=== PATIENT | female | born 1940 | race Caucasian/White ===

== ENCOUNTER 2016-09-23 17:43 | Emergency (ER) | payer MEDICARE, BC ==
[2016-09-23 18:09] VITALS: BP 161/88
--- NOTE | 2016-09-23 19:43 | EDM.PDOC ---
ED HPI GENERAL MEDICAL PROBLEM - General Chief Complaint: Lower Extremity Injury/Pain Stated Complaint: LT LEG SWOLLEN Time Seen by Provider: 09/23/16 18:25 Source of Information: Reports: Patient History Limitations: Reports: No Limitations - History of Present Illness INITIAL COMMENTS - FREE TEXT/NARRATIVE: The patient is a 76-year-old female who presents to the ED complaining of left lower leg swelling and pain. Patient states swelling to the left leg started 3 days ago and has slowly increased since. She has some mild pain located to the posterior aspect of her left calf. 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 She denies any recent trauma. States she is on her feet multiple hours during the day. States the swelling does go down somewhat with lying flat at night. She is concerned she has a blood clot. She has a history of blood clot in the right legs 60 years ago secondary to trauma. Pain currently is a 7/10. She denies any shortness of breath, chest pain, fever/chills, increased redness , hemoptysis, recent hospitalizations, recent surgery, exogenous estrogen use, or history of cancer. Patient does have a history of hypertension and is on multiple medications. History of hypothyroidism, GERD, and anxiety. Current medications include: levothyroxin, pantoprazole, losartan, metoprolol, amlodipine, lorazepam. Patient states approximately 3 weeks ago she just started amlodipine low dose. She is wearing compression stockings on regular basis. 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 - Related Data Allergies Allergy/AdvReac Type Severity Reaction Status Date / Time ciprofloxacin Allergy Hives Verified 04/26/16 07:29 ibuprofen Allergy Hives Verified 04/26/16 07:29 penicillin G Allergy Hives Verified 04/26/16 07:29 Home Meds: Home Meds LORazepam 0.5 - 1 mg PO QID PRN 04/25/14 [History] Levothyroxine [Synthroid] 75 mcg PO ASDIRECTED 04/25/14 [History] Metoprolol Succinate [Toprol XL] 75 mg PO DAILY 04/25/14 [History] Pantoprazole [ProTONIX] 40 mg PO DAILY 04/25/14 [History] Pravastatin [Pravachol] 10 mg PO DAILY 04/25/14 [History] Aspirin [Franck Chewable Aspirin] 81 mg PO DAILY 05/23/14 [History] Carboxymethylcellulos/Glycerin [Refresh Optive Gel Eye Drops] 1 drop EYEBOTH BID 04/26/16 [History] Dicyclomine [Bentyl] 20 mg PO QID PRN 04/26/16 [History] Levothyroxine [Synthroid] 50 mcg PO ASDIRECTED 04/26/16 [History] Losartan Potassium 50 mg PO DAILY 04/26/16 [History] Triamcinolone Acetonide [Nasacort] 1 spray NASBOTH DAILY PRN 04/26/16 [History] Past Medical History - Past Health History Medical/Surgical History: Denies Medical/Surgical History HEENT History: Reports: Cataract Other HEENT History: wears eyeglasses Cardiovascular History: Reports: High Cholesterol, Hypertension, Other (See Below) Other Cardiovascular History: cardiac arrest -shocked 2 times and sent to [place] almost 3 yrs ago Gastrointestinal History: Reports: Colon Polyp Genitourinary History: Reports: UTI, Recurrent 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: Musculoskeletal History: Reports: Back Pain, Chronic Psychiatric History: Reports: Anxiety Endocrine/Metabolic History: Reports: Hypothyroidism Oncologic (Cancer) History: Reports: Squamous Cell Carcinoma - Infectious Disease History Infectious Disease History: Reports: Measles - Past Surgical History HEENT Surgical History: Reports: Cataract Surgery, Tonsillectomy Social & Family History - Tobacco Use Smoking Status *Q: Never Smoker Years of Tobacco use: 20 Used Tobacco, but Quit: Yes Month Tobacco Last Used: unknown Second Hand Smoke Exposure: No - Caffeine Use Caffeine Use: Reports: Coffee, Soda, Tea - Alcohol Use Days Per Week of Alcohol Use: 0 Number of Drinks Per Day: 1 Total Drinks Per Week: 0 - Recreational Drug Use Recreational Drug Use: No - Living Situation & Occupation Living situation: Reports: , with Spouse Occupation: Employed Review of Systems - Review of Systems Review Of Systems: See Below Constitutional: Reports: No Symptoms Respiratory: Denies: Shortness of Breath, Cough, Sputum, Hemoptysis Cardiovascular: Denies: Chest Pain, Lightheadedness, Palpitations GI/Abdominal: Denies: Abdominal Pain, Bloody Stool, Diarrhea, Hematemesis, Nausea, Vomiting Genitourinary: Denies: Dysuria, Hematuria Musculoskeletal: Reports: Leg Pain Neurological: Denies: Dizziness, Numbness, Syncope, Tingling, Difficulty Walking Trauma Exam - Physical Exam Exam: See Below Exam Limited By: No Limitations General Appearance: Reports: Alert, WD/WN, No Apparent Distress Ears: Reports: Hearing Grossly Normal Nose: Reports: Normal Inspection Throat/Mouth: Reports: Normal Inspection, Normal Voice, No Airway Compromise Neck: Reports: Normal Inspection Respiratory Exam: Reports: No Respiratory Distress, Lungs Clear, Normal Breath Sounds, No Accessory Muscle Use, Chest Non-Tender Cardiovascular: Reports: Normal Peripheral Pulses, Regular Rate, Rhythm, No Murmur GI/Abdominal: Reports: Normal Bowel Sounds Extremities: No Evidence of Injury, Tenderness (to the left posterior calf. ), Other (Swelling noted to the left leg up to the mid thigh in comparison to the right. Pedal pulses intact bilaterally. Peripheral edema 2+ bilaterally. ) Neurologic: Reports: No Motor/Sensory Deficits, Alert, Normal Mood/Affect, Oriented x 3 Skin: Reports: Normal Color, Warm/Dry Course - Vital Signs Last Recorded V/S: Last Vital Signs Temp 98.9 F 09/23/16 18:08 Pulse 66 09/23/16 18:08 Resp 20 09/23/16 18:08 BP 161/88 H 09/23/16 18:08 Pulse Ox 95 09/23/16 18:08 - Orders/Labs/Meds Labs: Laboratory Tests 09/23/16 09/23/16 09/23/16 Range/Units 18:57 18:57 18:57 WBC 4.59 (3.98-10.04) K/mm3 RBC 4.16 (3.98-5.22) M/mm3 Hgb 12.7 (11.2-15.7) gm/L Hct 37.2 (34.1-44.9) % MCV 89.4 (79.4-94.8) fl MCH 30.5 (25.6-32.2) pg MCHC 34.1 (32.2-35.5) g/dl RDW Std Deviation 38.0 (36.4-46.3) fL Plt Count 169 L (182-369) K/mm3 MPV 9.2 L (9.4-12.3) fl Neut % (Auto) 42.1 (34.0-71.1) % Lymph % (Auto) 40.7 (19.3-51.7) % [place] % (Auto) 12.9 H (4.7-12.5) % Eos % (Auto) 3.9 (0.7-5.8) Baso % (Auto) 0.4 (0.1-1.2) % Neut # (Auto) 1.93 (1.56-6.13) K/mm3 Lymph # (Auto) 1.87 (1.18-3.74) K/mm3 [place] # (Auto) 0.59 H (0.24-0.36) K/mm3 Eos # (Auto) 0.18 (0.04-0.36) K/mm3 Baso # (Auto) 0.02 (0.01-0.08) K/mm3 PT 10.3 (8.0-13.0) SECONDS INR 0.95 APTT 29 (22-36) SECONDS Sodium 146 H (136-145) mEq/L Potassium 3.6 (3.5-5.1) mEq/L Chloride 110 H (98-107) mEq/L Carbon Dioxide 27 (21-32) mEq/L Anion Gap 12.6 (5-15) BUN 15 (7-18) mg/dL Creatinine 0.6 (0.55-1.02) mg/dL Est Cr Clr Drug Dosing 80.47 mL/min Estimated GFR (MDRD) > 60 (>60) mL/min BUN/Creatinine Ratio 25.0 H (14-18) Glucose 110 (83-115) mg/dL Calcium 9.1 (8.5-10.1) mg/dL Total Bilirubin 0.3 (0.2-1.0) mg/dL AST 14 L (15-37) U/L ALT 15 (14-59) U/L Alkaline Phosphatase 82 (46-116) U/L C-Reactive Protein < 0.2 (<1.0) mg/dL Total Protein 6.8 (6.4-8.2) g/dl Albumin 3.5 (3.4-5.0) g/dl Globulin 3.3 gm/dL Albumin/Globulin Ratio 1.1 (1-2) - Re-Assessments/Exams Free Text/Narrative Re-Assessment/Exam: Peripheral IV ordered. Initial studies include CBC, chem 14, CRP, Pt/INR, and PTT. Venous duplex of the left leg ordered. labs reviewed essentially normal. Ultrasound of the left lower leg impression no evidence of deep venous thrombus seen within the left lower extremity. Right common femoral vein is also patent. Shared results of labs and study with patient and family. We will discharge her home with instructions. Departure - Departure Time of Disposition: 20:48 Disposition: Home, Self-Care 01 Condition: good Clinical Impression: Pain and swelling of left lower leg - Discharge Information Referrals: Jenny Waddell, LOCAL ANNOUNCER [Primary Care Provider] - Forms: ED Department Discharge Additional Instructions: ultrasound of the left leg did not reveal any deep venous thrombus. Unclear etiology of recent swelling. Suspect the swelling you have chronically has been exacerbated by adding norvasc to your medication regimen. Thus will have you continue wearing compression stocking while on your feet for excessive hours. When able would like you to elevate your legs above your heart one hour in the a.m. and afternoon to reduce swelling. Decrease salt intake. See your PCP this coming week for reevaluation and modification of medication regimen if deemed necessary. Return to the E.D. for any new or worsening symptoms.
--- NOTE | 2016-09-23 19:56 | US ---
Left lower extremity deep venous ultrasound: Duplex and color flow imaging was obtained of the left common femoral, superficial femoral, proximal greater saphenous, popliteal, posterior tibial and peroneal veins. Right common femoral vein was also evaluated. Comparison: Previous left lower extremity deep venous ultrasound dated 02/24/11. Findings: Normal phasic flow, augmentation and compression is seen. Impression: 1. No evidence of deep venous thrombosis is seen within the left lower extremity. Right common femoral vein is also patent. Diagnostic code #1
== END 2016-09-23 21:00 | disposition home or self-care (01) ==
LOC: JD.ED 17:43
DX: M79.89 Other specified soft tissue disorders (principal); M79.662 Pain in left lower leg; I10 Essential (primary) hypertension; E03.9 Hypothyroidism, unspecified; K21.9 Gastro-esophageal reflux disease without esophagitis; F41.9 Anxiety disorder, unspecified; E78.00 Pure hypercholesterolemia, unspecified; Z79.899 Other long term (current) drug therapy; Z88.8 Allergy status to other drugs, medicaments and biological substances; Z88.0 Allergy status to penicillin; Z79.82 Long term (current) use of aspirin; Z98.890 Other specified postprocedural states
CPT/HCPCS: 36415; 80053; 85025; 85610; 85730; 86140; 93971-26-LT; 93971-LT; 99282; 99284-25

== ENCOUNTER 2016-10-18 11:14 | Observation (INO) | payer MEDICARE, BC ==
[2016-10-18] MEDS ORDERED: traMADol 50 MG Tab PO ONE (12:17)
--- NOTE | 2016-10-18 12:32 | CT ---
Head CT Technique: Multiple axial sections through the brain were obtained. Intravenous contrast was not utilized. Comparison: No previous intracranial imaging. Findings: Ventricles along with basal cisterns and sulci over the convexities are mildly prominent. No abnormal parenchymal densities are seen. No evidence of intracranial hemorrhage. No midline shift or mass effect is seen. Bone window settings were reviewed which shows no discrete calvarial abnormality. Visualized sinuses are clear. Impression: 1. Mild senescent change. Nothing acute is identified on noncontrast head CT study. Diagnostic code #1
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
--- NOTE | 2016-10-18 12:35 | CT ---
CT cervical spine Technique: Multiple axial sections were obtained from above C1 inferiorly to the top of T2. Comparison: No previous cervical spine imaging is available. Findings: Severe disc space narrowing is noted at C5-6 and C6-7 as well as C7-T1. Mild spondylolisthesis at C4-5 is seen compatible with degenerative apophyseal change. Degenerative apophyseal change is present throughout the cervical spine. Posterior osteophytes are noted C5-6 and C6-7. Very minimal spondylolisthesis seen at C7-T1 also compatible with degenerative apophyseal change. Degenerative change is seen between the dens and anterior arch of C1. Vertebral bodies and posterior arches are intact. No fracture is identified. Mild left-sided neural foraminal stenosis noted at C6-7. Moderate left-sided neural foraminal stenosis noted at C5-6. Mild to moderate right-sided neural foraminal stenosis noted at C4-5. Mild bilateral neural foraminal stenosis noted at C3-4. Very minimal spondylolisthesis also seen at C3-4 due to degenerative apophyseal change. Diffuse degenerative spurring is seen within the uncovertebral joints most prominent at C6-7. Impression: 1. Diffuse degenerative change as noted above. No acute fracture is seen. Diagnostic code #2
--- NOTE | 2016-10-18 12:37 | CT ---
CT facial bones Technique: Multiple axial sections through the facial bones were obtained. Reconstructed coronal and sagittal images were reviewed. Findings: Calcification which is felt to be incidental and dystrophic is seen above the left orbit within the forehead. Right and left globes are symmetric. Paranasal sinuses are clear. Mild degenerative change is seen within both temporomandibular joints. No facial bone fracture is identified. Impression: 1. Incidental findings as noted above. Nothing acute is appreciated on CT study of the facial bones. Diagnostic code #2
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
[2016-10-18] MEDS ORDERED: Albuterol/Ipratropium 3.0-0.5 MG/3 ML Neb Soln NEB PRN (14:17)
[2016-10-18] MEDS ORDERED: Bisacodyl 5 MG Tab PO PRN (14:17)
[2016-10-18] MEDS ORDERED: Polyethylene Glycol 3350 Powder 17 GM Packet PO PRN (14:17)
[2016-10-18] MEDS ORDERED: Promethazine 12.5 MG in Sodium Chloride 0.9% 50 ML IV PRN (14:17)
[2016-10-18] MEDS ORDERED: LORazepam 2 MG/ML MDV IV PRN (14:17)
[2016-10-18] MEDS ORDERED: Temazepam 7.5 MG Cap PO PRN (14:17)
[2016-10-18] MEDS ORDERED: Acetaminophen 325 MG Tab PO PRN (14:17)
[2016-10-18] MEDS ORDERED: Ondansetron 4 MG/2 ML SDV IV PRN (14:17)
[2016-10-18] MEDS ORDERED: HYDROmorphone 0.5 MG/0.5 ML Syringe IVPUSH PRN (14:17)
[2016-10-18] MEDS ORDERED: TRIAMCINOLONE ACETONIDE NASBOTH PRN (16:52)
[2016-10-18] MEDS: Lidocaine 5% 700 MG Patch TOP SCH (17:01)
[2016-10-18] MEDS: Acetaminophen/Butalbital/Caffeine 325-50-40 MG Tab PO PRN (19:00)
[2016-10-19] MEDS: Acetaminophen/HYDROcodone 325-5 MG Tab PO PRN ×4 (01:36→19:35)
--- NOTE | 2016-10-19 07:28 | PCM.PN ---
- General Info Date of Service: 10/19/16 Admission Dx/Problem (Free Text): Status Post Fall and Back/Neck Pain Subjective Update: Follow Up Functional Status: Reports: tolerating diet, ambulating, urinating, new symptoms (sore all over ). Denies: pain controlled - Review of Systems General: Reports: Weakness. Denies: Fever, Fatigue, Malaise, Chills HEENT: Reports: no symptoms Pulmonary: Denies: shortness of breath Cardiovascular: Denies: Chest Pain, Palpitations, Dyspnea on Exertion Gastrointestinal: Denies: Abdominal pain, Nausea, Vomiting Genitourinary: Reports: no symptoms Musculoskeletal: Reports: neck pain, back pain, joint pain Skin: Reports: bruising. Denies: rash Neurological: Reports: Difficulty Walking, Weakness, Gait Disturbance. Denies: Confusion Psychiatric: Denies: depression, anxiety, agitation, hallucinations Systems Review Comment:: No overnight issues. She complaints of more pain and aches all over. She was informed about this so she was not surprised. Her labs are unremarkable. - Patient Data Vitals - most recent: Last Vital Signs Temp 36.4 C 10/18/16 19:55 Pulse 55 L 10/18/16 19:55 Resp 12 10/18/16 19:55 BP 140/96 H 10/18/16 19:55 Pulse Ox 96 10/18/16 19:55 Weight - most recent: 76.975 kg I&O - last 24 hours: Intake & Output 10/18/16 10/19/16 10/19/16 22:59 06:59 14:59 Intake Total 500 800 Output Total 400 1000 Balance 100 -200 Lab Results last 24 hrs: Laboratory Results - last 24 hr 10/19/16 10/19/16 Range/Units 06:11 06:11 WBC 5.72 (3.98-10.04) K/mm3 RBC 4.29 (3.98-5.22) M/mm3 Hgb 13.4 (11.2-15.7) gm/L Hct 38.4 (34.1-44.9) % MCV 89.5 (79.4-94.8) fl MCH 31.2 (25.6-32.2) pg MCHC 34.9 (32.2-35.5) g/dl RDW Std Deviation 38.3 (36.4-46.3) fL Plt Count 189 (182-369) K/mm3 MPV 9.5 (9.4-12.3) fl Neut % (Auto) 52.3 (34.0-71.1) % Lymph % (Auto) 35.5 (19.3-51.7) % Upson % (Auto) 8.9 (4.7-12.5) % Eos % (Auto) 2.8 (0.7-5.8) Baso % (Auto) 0.3 (0.1-1.2) % Neut # (Auto) 2.99 (1.56-6.13) K/mm3 Lymph # (Auto) 2.03 (1.18-3.74) K/mm3 Upson # (Auto) 0.51 H (0.24-0.36) K/mm3 Eos # (Auto) 0.16 (0.04-0.36) K/mm3 Baso # (Auto) 0.02 (0.01-0.08) K/mm3 Sodium 141 (136-145) mEq/L Potassium 3.5 (3.5-5.1) mEq/L Chloride 108 H (98-107) mEq/L Carbon Dioxide 27 (21-32) mEq/L Anion Gap 9.5 (5-15) BUN 10 (7-18) mg/dL Creatinine 0.6 (0.55-1.02) mg/dL Est Cr Clr Drug Dosing 80.47 mL/min Estimated GFR (MDRD) > 60 (>60) mL/min BUN/Creatinine Ratio 16.7 (14-18) Glucose 103 (83-115) mg/dL Calcium 8.4 L (8.5-10.1) mg/dL Magnesium 2.0 (1.8-2.4) mg/dl Med Orders - Current: Current Medications Acetaminophen (Tylenol) 650 mg PO Q4H PRN PRN Reason: Pain (Mild 1-3)/fever Acetaminophen/Butalbital/Caffeine (Fioricet 325-50-40 Mg) 1 tab PO Q6H PRN PRN Reason: Headache/Pain Last Admin: 10/18/16 19:00 Dose: 1 tab Hydrocodone Bitart/Acetaminophen (Brashear 325-5 Mg) 1 tab PO Q4H PRN PRN Reason: Pain (moderate 4-6) Last Admin: 10/19/16 01:36 Dose: 1 tab Albuterol/Ipratropium (Duoneb 3.0-0.5 Mg/3 Ml) 3 ml NEB Q4H PRN PRN Reason: Shortness Of Breath/wheezing Amlodipine Besylate (Norvasc) 2.5 mg PO DAILY [facility] Aspirin (Halfprin) 81 mg PO DAILY [facility] Bisacodyl (Dulcolax) 5 mg PO DAILY PRN PRN Reason: Constipation Hydromorphone HCl (Dilaudid) 0.25 mg IVPUSH Q4H PRN PRN Reason: Pain (severe 7-10) Promethazine HCl 12.5 mg/ (Sodium Chloride) 50.5 mls @ 100 mls/hr IV Q6H PRN PRN Reason: Nausea/Vomiting Levothyroxine Sodium (Levothyroxine) 75 mcg PO DAILY [facility] Lidocaine (Lidoderm 5%) 700 mg TOP Q24H [facility] Last Admin: 10/18/16 17:01 Dose: 700 mg Lorazepam (Ativan) 0.25 mg IV Q6H PRN PRN Reason: Anxiety Lorazepam (Ativan) 0.5 - 1 mg PO QID PRN PRN Reason: Anxiety Losartan Potassium (Cozaar) 100 mg PO DAILY [facility] Metoprolol Succinate (Toprol Xl) 50 mg PO DAILY [facility] Miscellaneous Information (Remove Patch) 0 ea TRDERM Q24H [facility] Last Admin: 10/19/16 05:01 Dose: Not Given Pravastatin 10 Mg (Pt Own) 10 mg PO DAILY [facility] Triamcinolone Acetonide [Nasacort] 1 [place] 1 spray NASBOTH DAILY PRN PRN Reason: Allergies Ondansetron HCl (Zofran) 4 mg IV Q6H PRN PRN Reason: Nausea/Vomiting Pantoprazole Sodium (Protonix) 40 mg PO DAILY [facility] Polyethylene Glycol (Miralax) 17 gm PO DAILY PRN PRN Reason: Constipation Senna/Docusate Sodium (Senna Plus) 1 tab PO BID PRN PRN Reason: Constipation Temazepam (Restoril) 7.5 mg PO BEDTIME PRN PRN Reason: Sleep Discontinued Medications Tramadol HCl (Ultram) 100 mg PO ONETIME ONE Stop: 10/18/16 12:18 Last Admin: 10/18/16 12:25 Dose: 100 mg - Exam General: alert, oriented, cooperative, no acute distress HEENT: Pupils equal, Pupils reactive, EOMI, Mucous membr. moist/pink Neck: supple, trachea midline, no JVD Lungs: Clear to auscultation, Normal respiratory effort Cardiovascular: Regular Rate, Regular Rhythm Abdomen: bowel sounds present, soft, no tenderness, no distension (Female) Exam: Deferred Back Exam: Normal Inspection, Decreased Range of Motion, Muscle Spasm, Paraspinal Tenderness, Vertebral Tenderness Extremities: no edema, normal pulses, no tenderness/swelling, no clubbing, no cyanosis, no calf tenderness, other (b/l knee abrasions) Peripheral Pulses: 2+: Dorsalis Pedis (L), Dorsalis Pedis (R) Skin: warm, dry, intact Neurological: no new focal deficit Psy/Mental Status: alert, normal affect, normal mood - Problem List Review Problem List Initiated/Reviewed/Updated: Yes - My Orders Last 24 Hours: My Active Orders 10/18/16 15:20 Patient Status [ADT] Routine 10/18/16 16:52 Acetaminophen/Butalbital/Caff [Fioricet 325-50-40 MG] 1 tab PO Q6H PRN LORazepam [Ativan] 0.5 - 1 mg PO QID PRN Triamcinolone Acetonide [Nasacort] 1 spray NASBOTH DAILY PRN 10/19/16 09:00 Aspirin [Halfprin] 81 mg PO DAILY Levothyroxine 75 mcg PO DAILY Losartan [Cozaar] 100 mg PO DAILY Metoprolol Succinate [Toprol XL] 50 mg PO DAILY Pantoprazole [ProTONIX] 40 mg PO DAILY Pravastatin 10 mg PO DAILY amLODIPine [Norvasc] 2.5 mg PO DAILY - Plan Plan:: Assessment/Plan: Acute: S/p Fall w/ Headache - Had a misstep then took a tumble - No prodromal symptoms - Head, Facial Bones, Cervical Spine CT scan report all reads nothing acute is identified - PRN meds for symptomatic control - Stable Bilateral Knee Contusion with Abrasions - X-ray report reads no acute injury - Supportive Care Muscle Strain S/p Fall - X-ray report reads no acute identified - Neck and Back - Supportive Care Acute on Chronic Back Pain - Supportive Care - Lidocaine patch and warm/cold compress - PRN Pain Meds - Continue PT/OT Chronic: Hx/o Cataract Impaired Vision HLD HTN Hypokalemia Hx/o Cardiac Arrest S/p AICD Chronic Back Pain Anxiety Hypothyroidism Plan: She is clinically stable She is more sore and achy this am but started to using narcotic pain meds Ad peterson with Assistance Continue PT/OT SW/ULI for d/c planning Code status:1 Possible d/c in am
[2016-10-19] MEDS: LEVOTHYROXINE 75 MCG PO SCH ×2 (07:50→09:21)
--- NOTE | 2016-10-19 08:21 | CR ---
Lumbar spine: AP, lateral and cone-down lateral views centered to the lumbosacral junction were obtained. Comparison: Previous MRI lumbar spine exam of 03/16/11 is available. Moderate disc space narrowing noted at L1-L2. Posterior disc space narrowing noted at L2-L3. Diffuse disc space narrowing at L3-L4 with vacuum phenomena. Diffuse disc space narrowing at L4-L5 and L5-S1 also with vacuum phenomena. Spondylolisthesis seen at L4-L5 measuring approximately 1.4 cm. This has increased in amount from prior MRI most likely due to degenerative apophyseal change. Mild spondylolisthesis noted at L3-L4 measuring approximately 5 mm which has also slightly increased in amount from prior exam. This is also likely due to degenerative apophyseal change. Posterior spurring noted at L1-L2 and L3-L4. Mild scoliosis is seen. Pedicles are intact. Visualized transverse and spinous processes are intact. Vascular calcification seen within the aorta. Bowel gas pattern is normal. Impression: 1. Degenerative change and mild scoliosis. Vascular calcification. 2. No acute abnormality is identified. Diagnostic code #3
--- NOTE | 2016-10-19 08:21 | CR ---
Chest: Frontal view of the chest was obtained. Comparison: Previous chest x-ray of 04/26/16. Heart is mildly enlarged. Mild tortuosity of the thoracic aorta is seen. AICD is present. Lungs are clear. Bony structures are osteopenic but grossly intact. Impression: 1. Findings as described above. No significant change is seen from prior chest x-ray. Nothing acute is identified. Diagnostic code #2
--- NOTE | 2016-10-19 08:22 | CR ---
Right knee: Four views of the right knee were obtained. Comparison: Previous right knee exam of 10/11/16. Incidental spurring is noted off the patella at the attachment of the quadriceps tendon. Vascular calcification is noted. Medial joint space narrowing is present. Minimal osteophytes are noted off the lateral joint. No acute fracture is seen. No dislocation is noted. No joint effusion is seen. Impression: 1. Degenerative change and vascular calcification. 2. No acute abnormality is identified on right knee exam. Diagnostic code #2
--- NOTE | 2016-10-19 08:22 | CR ---
Left knee: Four views of the left knee were obtained. Comparison: Previous left knee study of 10/11/16 is available. Medial joint space narrowing is seen. Osteophytes are noted off the medial and lateral knee. No joint effusion is seen. Vascular calcification is noted. No acute bony abnormality is identified. Impression: 1. Degenerative change and vascular calcification. 2. No acute abnormality is identified on left knee exam. Diagnostic code #2
[2016-10-19] MEDS: LORazepam 0.5 MG Tab PO PRN (11:46)
[2016-10-19] MEDS: Metoprolol Succinate 50 MG Tab.ER**PT OWN PO SCH (11:47)
[2016-10-19] MEDS: Pantoprazole 40 MG Tab.CR**PT OWN PO SCH (11:49)
[2016-10-19] MEDS: AMLODIPINE 2.5 MG PO SCH (11:50)
[2016-10-19] MEDS: ASPIRIN 81 MG PO SCH (11:50)
[2016-10-19] MEDS: PRAVASTATIN 10 MG PO SCH (11:51)
[2016-10-19] MEDS: Losartan 100 MG Tab PO SCH (12:25)
[2016-10-19] MEDS: Lidocaine 5% 700 MG Patch TOP SCH (16:40)
[2016-10-20] MEDS: LORazepam 0.5 MG Tab PO PRN (02:41)
[2016-10-20] MEDS: Pantoprazole 40 MG Tab.CR**PT OWN PO SCH (08:37)
[2016-10-20] MEDS: Losartan 100 MG Tab PO SCH (08:37)
[2016-10-20] MEDS: Metoprolol Succinate 50 MG Tab.ER**PT OWN PO SCH (08:40)
[2016-10-20] MEDS: AMLODIPINE 2.5 MG PO SCH (08:41)
[2016-10-20] MEDS: ASPIRIN 81 MG PO SCH (08:41)
[2016-10-20] MEDS: LEVOTHYROXINE 75 MCG PO SCH (08:45)
[2016-10-20] MEDS: PRAVASTATIN 10 MG PO SCH (08:45)
[2016-10-20] MEDS: Acetaminophen/Butalbital/Caffeine 325-50-40 MG Tab PO PRN (08:59)
[2016-10-20 09:10] VITALS: BP 136/66
--- NOTE | 2016-10-20 14:48 | PCM.DCSUM1 ---
Discharge Summary - Hospital Course Brief History: This is a 76-year-old pleasant elderly white female with past medical history of impaired vision, hyperlipidemia, hypertension, history of cardiac arrest, hypokalemia, chronic back pain, anxiety, hypothyroidism, and status post AICD/pacemaker placement who comes in to the emergency department after she took a tumble at a nearby store. She was admitted for observation status post fall. - Discharge Data Discharge Date: 10/20/16 Discharge Disposition: Home, Self-Care 01 Condition: Good - Discharge Diagnosis/Problem(s) (1) Cervical strain, acute SNOMED Code(s): 944374916 ICD Code: S16.1XXA - STRAIN OF MUSCLE, FASCIA AND TENDON AT NECK LEVEL, INIT Status: Acute Qualifiers: Encounter type: initial encounter Qualified Code(s): S16.1XXA - Strain of muscle, fascia and tendon at neck level, initial encounter (2) Contusion of left knee SNOMED Code(s): 16921612, 866529418 ICD Code: S80.02XA - CONTUSION OF LEFT KNEE, INITIAL ENCOUNTER Status: Acute Qualifiers: Encounter type: initial encounter Qualified Code(s): S80.02XA - Contusion of left knee, initial encounter (3) Contusion of right knee SNOMED Code(s): 42043409, 907533653 ICD Code: S80.01XA - CONTUSION OF RIGHT KNEE, INITIAL ENCOUNTER Status: Acute Qualifiers: Encounter type: initial encounter Qualified Code(s): S80.01XA - Contusion of right knee, initial encounter (4) Fall SNOMED Code(s): 9099172, 044982089 ICD Code: W19.XXXA - UNSPECIFIED FALL, INITIAL ENCOUNTER Status: Inactive Qualifiers: Encounter type: initial encounter Qualified Code(s): W19.XXXA - Unspecified fall, initial encounter (5) Headache SNOMED Code(s): 07068381 ICD Code: R51 - HEADACHE Status: Resolved Qualifiers: Headache type: unspecified Headache chronicity pattern: acute headache Intractability: not intractable Qualified Code(s): R51 - Headache (6) Low back strain SNOMED Code(s): 901789807 ICD Code: S39.012A - STRAIN OF MUSCLE, FASCIA AND TENDON OF LOWER BACK, INIT Status: Acute Qualifiers: Encounter type: initial encounter Qualified Code(s): S39.012A - Strain of muscle, fascia and tendon of lower back, initial encounter - Patient Summary/Data Operative Procedure(s) Performed: None Complications: None Hospital Course: Patient was primarily admitted for observation status post fall. She had suffered a non-traumatic fall at a local store on her way out the door. All imaging studies to include a head CT scan and various plain imaging studies showed no acute abnormal findings. However she was treated for pain management. Patient symptoms have improved since admission. All her labs were unremarkable. She also met her PT/OT goal during her short hospital stay with us. Her hospital course was uncomplicated and rest of her chronic medical illness remained stable during this admission. Patient will be provided with prescriptions for few pain medications to include tramadol, lidocaine patch and several pills of low-dose [place] for pain for pain management. She was also prescribed with fioricet to take for medical management of her headache. The patient is now ready for discharge. She was advised to avoid alcohol while taking her pain medications. She was further advised to call her primary care for any questions or concerns and to follow-up in 1-2 weeks as needed. Family members who were present at bedside, were educated about her high fall risk. They were advised to have someone to watch over her while she is home alone. The patient and family expressed understanding and in agreement with the plans as discussed above. All questions were answered. Her primary care doctor was called and informed about the discharge care plans. No additional outpatient testing or diagnostic data recommended. - Patient Instructions Diet: Usual Diet as Tolerated Activity: As Tolerated Driving: Do Not Drive Showering/Bathing: May Shower Notify Provider of: Fever, Increased Pain, Swelling and Redness, Nausea and/or Vomiting Other/Special Instructions: - Please take all medications as directed. - Avoid alcohol or wine while taking norco or tramadol. - Make sure someone is with you when you take these medications. - Call your doctor if you have any questions of concerns. - Follow up with you doctor as needed in 1-2 weeks - Discharge Plan Prescriptions/Med Rec: Acetaminophen/Butalbital/Caff [Fioricet 325-50-40 MG] 1 tab PO Q6H #20 tablet Hydrocodone/Acetaminophen [[place] 5-325 Tablet] 1 each PO Q6H PRN #12 tablet PRN Reason: Pain Lidocaine 5% [Lidoderm 5%] 700 mg TOP Q24H PRN #15 patch PRN Reason: Pain traMADol HCl [Tramadol HCl] 50 mg PO Q6H PRN #30 tablet PRN Reason: Other Home Medications: Home Meds LORazepam 0.5 - 1 mg PO QID PRN 04/25/14 [History] Metoprolol Succinate [Toprol XL] 50 mg PO DAILY 04/25/14 [History] Pantoprazole [ProTONIX] 40 mg PO DAILY 04/25/14 [History] Pravastatin [Pravachol] 10 mg PO DAILY 04/25/14 [History] Aspirin [Franck Chewable Aspirin] 81 mg PO DAILY 05/23/14 [History] Levothyroxine [Synthroid] 75 mcg PO DAILY 04/26/16 [History] Losartan Potassium 100 mg PO DAILY 04/26/16 [History] Triamcinolone Acetonide [Nasacort] 1 spray NASBOTH DAILY PRN 04/26/16 [History] amLODIPine [Norvasc] 2.5 mg PO DAILY 10/18/16 [History] Acetaminophen/Butalbital/Caff [Fioricet 325-50-40 MG] 1 tab PO Q6H #20 tablet [Rx] Hydrocodone/Acetaminophen [[place] 5-325 Tablet] 1 each PO Q6H PRN #12 tablet [Rx] Lidocaine 5% [Lidoderm 5%] 700 mg TOP Q24H PRN #15 patch 10/20/16 [Rx] traMADol HCl [Tramadol HCl] 50 mg PO Q6H PRN #30 tablet 10/20/16 [Rx] Patient Handouts: Fall Prevention in the Home, [id number] Referrals: Jenny Waddell NP [Primary Care Provider] - 10/28/16 9:00 am (Please follow up with Jenny Waddell on MondayOctober 28 at 0900.) - Discharge Summary/Plan Comment DC Time >30 min.: Yes (45 mins) Discharge Summary/Plan Comment: Discharge to Home - General Info Date of Service: 10/20/16 Admission Dx/Problem (Free Text: Status Post Fall and Back/Neck Pain Subjective Update: Follow Up Functional Status: Reports: pain controlled, tolerating diet, ambulating, urinating. Denies: new symptoms - Review of Systems General: Denies: Fever, Weakness, Fatigue, Malaise HEENT: Reports: no symptoms Pulmonary: Denies: shortness of breath Cardiovascular: Denies: Chest Pain, Palpitations, Dyspnea on Exertion Gastrointestinal: Denies: Abdominal pain, Difficulty swallowing, Nausea, Vomiting Genitourinary: Reports: no symptoms, dysuria Musculoskeletal: Reports: neck pain, back pain, joint pain, other (knee pain) Skin: Reports: no symptoms Neurological: Reports: No Symptoms, Difficulty Walking, Gait Disturbance. Denies: Confusion, Headache Psychiatric: Denies: depression, anxiety, agitation, hallucinations Systems Review Comment: No overnight or acute issues. She feels much better. She is okay to go home. She has no new complaints. - Patient Data Vitals - Most Recent: Last Vital Signs Temp 36.8 C 10/20/16 08:57 Pulse 57 L 10/20/16 08:57 Resp 12 10/20/16 08:57 BP 136/66 10/20/16 08:57 Pulse Ox 94 L 10/20/16 08:57 Weight - Most Recent: 76.657 kg I&O - Last 24 hours: Intake & Output 10/19/16 10/20/16 10/20/16 22:59 06:59 14:59 Intake Total 1115 300 200 Output Total 625 Balance 490 300 200 Lab Results - Last 24 hrs: Laboratory Results - last 24 hr 10/20/16 10/20/16 Range/Units 04:36 04:36 WBC 5.71 (3.98-10.04) K/mm3 RBC 4.38 (3.98-5.22) M/mm3 Hgb 13.5 (11.2-15.7) gm/L Hct 39.2 (34.1-44.9) % MCV 89.5 (79.4-94.8) fl MCH 30.8 (25.6-32.2) pg MCHC 34.4 (32.2-35.5) g/dl RDW Std Deviation 38.8 (36.4-46.3) fL Plt Count 172 L (182-369) K/mm3 MPV 9.5 (9.4-12.3) fl Neut % (Auto) 57.6 (34.0-71.1) % Lymph % (Auto) 28.5 (19.3-51.7) % [place] % (Auto) 10.3 (4.7-12.5) % Eos % (Auto) 3.2 (0.7-5.8) Baso % (Auto) 0.4 (0.1-1.2) % Neut # (Auto) 3.29 (1.56-6.13) K/mm3 Lymph # (Auto) 1.63 (1.18-3.74) K/mm3 [place] # (Auto) 0.59 H (0.24-0.36) K/mm3 Eos # (Auto) 0.18 (0.04-0.36) K/mm3 Baso # (Auto) 0.02 (0.01-0.08) K/mm3 Sodium 142 (136-145) mEq/L Potassium 3.6 (3.5-5.1) mEq/L Chloride 108 H (98-107) mEq/L Carbon Dioxide 28 (21-32) mEq/L Anion Gap 9.6 (5-15) BUN 10 (7-18) mg/dL Creatinine 0.7 (0.55-1.02) mg/dL Est Cr Clr Drug Dosing 68.97 mL/min Estimated GFR (MDRD) > 60 (>60) mL/min BUN/Creatinine Ratio 14.3 (14-18) Glucose 105 (83-115) mg/dL Calcium 8.5 (8.5-10.1) mg/dL Magnesium 2.0 (1.8-2.4) mg/dl Med Orders - Current: Current Medications Acetaminophen (Tylenol) 650 mg PO Q4H PRN PRN Reason: Pain (Mild 1-3)/fever Last Admin: 10/20/16 13:40 Dose: 650 mg Acetaminophen/Butalbital/Caffeine (Fioricet 325-50-40 Mg) 1 tab PO Q6H PRN PRN Reason: Headache/Pain Last Admin: 10/20/16 08:59 Dose: 1 tab Hydrocodone Bitart/Acetaminophen ([place] 325-5 Mg) 1 tab PO Q4H PRN PRN Reason: Pain (moderate 4-6) Last Admin: 10/19/16 19:35 Dose: 1 tab Albuterol/Ipratropium (Duoneb 3.0-0.5 Mg/3 Ml) 3 ml NEB Q4H PRN PRN Reason: Shortness Of Breath/wheezing Amlodipine Besylate (Norvasc) 2.5 mg PO DAILY [facility] Last Admin: 10/20/16 08:41 Dose: 2.5 mg Aspirin (Halfprin) 81 mg PO DAILY [facility] Last Admin: 10/20/16 08:41 Dose: 81 mg Bisacodyl (Dulcolax) 5 mg PO DAILY PRN PRN Reason: Constipation Hydromorphone HCl (Dilaudid) 0.25 mg IVPUSH Q4H PRN PRN Reason: Pain (severe 7-10) Promethazine HCl 12.5 mg/ (Sodium Chloride) 50.5 mls @ 100 mls/hr IV Q6H PRN PRN Reason: Nausea/Vomiting Lidocaine (Lidoderm 5%) 700 mg TOP Q24H [facility] Last Admin: 10/19/16 16:40 Dose: Not Given Lorazepam (Ativan) 0.25 mg IV Q6H PRN PRN Reason: Anxiety Lorazepam (Ativan) 0.5 - 1 mg PO QID PRN PRN Reason: Anxiety Last Admin: 10/20/16 02:41 Dose: 1 mg Losartan Potassium (Cozaar) 100 mg PO DAILY [facility] Last Admin: 10/20/16 08:37 Dose: 100 mg Metoprolol Succinate (Toprol Xl) 50 mg PO DAILY [facility] Last Admin: 10/20/16 08:40 Dose: 50 mg Miscellaneous Information (Remove Patch) 0 ea TRDERM Q24H [facility] Last Admin: 10/20/16 02:27 Dose: Not Given Pravastatin 10 Mg (Pt Own) 10 mg PO DAILY [facility] Last Admin: 10/20/16 08:45 Dose: 10 mg Triamcinolone Acetonide [Nasacort] 1 [place] Own 1 spray NASBOTH DAILY PRN PRN Reason: Allergies Ondansetron HCl (Zofran) 4 mg IV Q6H PRN PRN Reason: Nausea/Vomiting Pantoprazole Sodium (Protonix) 40 mg PO DAILY [facility] Last Admin: 10/20/16 08:37 Dose: 40 mg Levothyroxine 75 Mcg (Tab.) 0 each PO DAILY [facility] Last Admin: 10/20/16 08:45 Dose: 1 each Polyethylene Glycol (Miralax) 17 gm PO DAILY PRN PRN Reason: Constipation Senna/Docusate Sodium (Senna Plus) 1 tab PO BID PRN PRN Reason: Constipation Temazepam (Restoril) 7.5 mg PO BEDTIME PRN PRN Reason: Sleep Discontinued Medications Tramadol HCl (Ultram) 100 mg PO ONETIME ONE Stop: 10/18/16 12:18 Last Admin: 10/18/16 12:25 Dose: 100 mg - Exam General: Reports: alert, oriented, cooperative, no acute distress HEENT: Reports: Pupils equal, Pupils reactive, EOMI, Mucous membr. moist/pink, Other (nasal hematoma and bruising) Neck: Reports: supple, trachea midline, no JVD, no thyromegaly Lungs: Reports: Clear to auscultation, Normal respiratory effort Cardiovascular: Reports: Regular Rate, Regular Rhythm Abdomen: Reports: bowel sounds present, soft, no tenderness, no distension (Female) Exam: Deferred Rectal (Female) Exam: Deferred Back Exam: Reports: Normal Inspection, Decreased Range of Motion, Muscle Spasm, Paraspinal Tenderness, Vertebral Tenderness Extremities: Reports: no edema, normal pulses, no tenderness/swelling, no clubbing, no cyanosis, no calf tenderness, other (knee abrasions) Skin: Reports: warm, dry, intact Neurological: Reports: no new focal deficit. Denies: normal gait Psy/Mental Status: Reports: alert, normal affect, normal mood *Q Meaningful Use (DIS) - VTE *Q VTE Criteria *Q: - Stroke *Q Stroke Criteria *Q: - AMI *Q AMI Criteria *Q:
== END 2016-10-20 14:15 | disposition home or self-care (01) ==
LOC: JD.ED 11:14 → UNDOADMOB 14:24 → JD.MS 14:24
PROVIDERS: ADMIT Internal Medicine; ATTEND Internal Medicine
DX: S16.1XXA Strain of muscle, fascia and tendon at neck level, initial encounter (principal); S80.02XA Contusion of left knee, initial encounter; S80.01XA Contusion of right knee, initial encounter; R51 Headache; S39.012A Strain of muscle, fascia and tendon of lower back, initial encounter; W19.XXXA Unspecified fall, initial encounter; E78.5 Hyperlipidemia, unspecified; I10 Essential (primary) hypertension; E87.6 Hypokalemia; G89.29 Other chronic pain; F41.9 Anxiety disorder, unspecified; E03.9 Hypothyroidism, unspecified; E78.00 Pure hypercholesterolemia, unspecified; Z95.810 Presence of automatic (implantable) cardiac defibrillator; Z88.0 Allergy status to penicillin; Z88.1 Allergy status to other antibiotic agents; Z88.6 Allergy status to analgesic agent; Z79.82 Long term (current) use of aspirin; Z79.899 Other long term (current) drug therapy; Z86.010 Personal history of colon polyps; Z87.440 Personal history of urinary (tract) infections; Z85.828 Personal history of other malignant neoplasm of skin; Z98.49 Cataract extraction status, unspecified eye; Z90.89 Acquired absence of other organs
CPT/HCPCS: 36415; 70450; 70486; 71010; 72100; 72125; 73564; 80048; 83735; 85025; 97116; 97162; 97165; 99285; A9270; G0378; 99284

== ENCOUNTER 2017-01-28 11:29 | Emergency (ER) | payer MEDICARE, BC ==
[2017-01-28] MEDS ORDERED: Acetaminophen 325 MG Tab PO ONE (12:39)
[2017-01-28 12:44] VITALS: BP 155/78
--- NOTE | 2017-01-28 14:01 | US ---
Right lower extremity deep venous ultrasound: Duplex and color flow imaging was obtained of the right common superficial femoral, proximal greater saphenous, popliteal, posterior tibial and peroneal veins. Left common femoral vein also was evaluated. Findings: Normal phasic flow, augmentation and compression is seen. Impression: 1. No evidence of deep venous thrombosis is seen within the right lower extremity or within the left common femoral vein. Diagnostic code #1
--- NOTE | 2017-01-28 14:16 | EDM.PDOC ---
<Saran Rees O - Last Filed: 01/30/17 11:52> ED HPI GENERAL MEDICAL PROBLEM - General Chief Complaint: Lower Extremity Injury/Pain Stated Complaint: LEG SWOLLEN AND HOT Time Seen by Provider: 01/28/17 11:43 Source of Information: Reports: Patient - Related Data Allergies Allergy/AdvReac Type Severity Reaction Status Date / Time ciprofloxacin Allergy Hives Verified 01/30/17 10:52 ibuprofen Allergy Hives Verified 01/30/17 10:52 penicillin G Allergy Hives Verified 01/30/17 10:52 Home Meds: Home Meds LORazepam 0.5 - 1 mg PO QID PRN 04/25/14 [History] Metoprolol Succinate [Toprol XL] 50 mg PO DAILY 04/25/14 [History] Pantoprazole [ProTONIX] 40 mg PO DAILY 04/25/14 [History] Pravastatin [Pravachol] 10 mg PO DAILY 04/25/14 [History] Aspirin [Franck Chewable Aspirin] 81 mg PO DAILY 05/23/14 [History] Levothyroxine [Synthroid] 75 mcg PO DAILY 04/26/16 [History] Losartan Potassium 100 mg PO DAILY 04/26/16 [History] amLODIPine [Norvasc] 2.5 mg PO DAILY 10/18/16 [History] traMADol HCl [Tramadol HCl] 50 mg PO Q6H PRN #30 tablet 10/20/16 [Rx] Acetaminophen [Tylenol Extra Strength] 500 mg PO TID PRN 01/30/17 [History] Doxycycline [Vibramycin] 100 mg PO Q12HR #14 cap 01/30/17 [Rx] Review of Systems - Review of Systems Review Of Systems: ROS reveals no pertinent complaints other than HPI. ED EXAM, GENERAL - Physical Exam Exam: See Below Exam Limited By: No Limitations General Appearance: Alert, WD/WN, No Apparent Distress Course - Vital Signs Last Recorded V/S: Last Vital Signs Temp 97.1 F 01/28/17 11:42 Pulse 57 L 01/28/17 11:42 Resp 18 01/28/17 11:42 BP 155/78 H 01/28/17 11:42 Pulse Ox 98 01/28/17 11:42 - Orders/Labs/Meds Meds: Medications Discontinued Medications Generic Name Dose Route Start Last Admin Trade Name Freq PRN Reason Stop Dose Admin Acetaminophen 975 mg 01/28/17 12:39 01/28/17 12:52 Tylenol PO 01/28/17 12:40 650 mg NOW ONE Administration Departure - Departure Disposition: Home, Self-Care 01 Clinical Impression: Contusion, knee and lower leg Qualifiers: Encounter type: initial encounter Laterality: right Qualified Code(s): S80.01XA - Contusion of right knee, initial encounter - Discharge Information Instructions: Contusion Referrals: Jenny Waddell, [employer] [Primary Care Provider] - Forms: ED Department Discharge Additional Instructions: rest and elevate leg, ankle and foot as much as possible, intermitent ice packs for swelling as needed, you may take tylenol 2 to 3 times daily as needed for discomfort, follow up with your regular medical provider in about 5 to 6 days for recheck, call for appt., return to ED if symptoms worsening in any way. <Leroy Nixon - Last Filed: 02/04/17 08:48> ED HPI GENERAL MEDICAL PROBLEM - General Source of Information: Reports: Patient, RN Notes Reviewed - History of Present Illness INITIAL COMMENTS - FREE TEXT/NARRATIVE: 76-year-old lady comes in with right leg swelling and discomfort. She fell bruising her leg and knee about one week ago. He used to have pain with motion and some pain with ambulation. She is concerned about increased swelling of the right lower leg over the past or to 5 days rather than getting better. She is not been having chest pain or shortness of breath. No other unusual symptoms Right Leg Pain Score (Numeric/FACES): 10 Past Medical History - Past Health History Medical/Surgical History: Denies Medical/Surgical History HEENT History: Reports: Cataract Other HEENT History: wears eyeglasses Cardiovascular History: Reports: High Cholesterol, Hypertension, Other (See Below) Other Cardiovascular History: cardiac arrest -shocked 2 times and sent to [facility] almost 3 yrs ago Gastrointestinal History: Reports: Colon Polyp, GERD Genitourinary History: Reports: UTI, Recurrent [employer] History: Reports: Musculoskeletal History: Reports: Back Pain, Chronic Other Musculoskeletal History: currently has back pain and both of her knees hurt Psychiatric History: Reports: Anxiety Endocrine/Metabolic History: Reports: Hypothyroidism Oncologic (Cancer) History: Reports: Squamous Cell Carcinoma - Infectious Disease History Infectious Disease History: Reports: Measles - Past Surgical History HEENT Surgical History: Reports: Cataract Surgery, Tonsillectomy Cardiovascular Surgical History: Reports: Pacer Social & Family History - Family History Family Medical History: Noncontributory Oncologic: Reports: Other (See Below) Other Oncologic Family History: throat - Tobacco Use Smoking Status *Q: Never Smoker Years of Tobacco use: 20 Used Tobacco, but Quit: Yes Month Tobacco Last Used: unknown Second Hand Smoke Exposure: No - Caffeine Use Caffeine Use: Reports: Coffee - Alcohol Use Days Per Week of Alcohol Use: 0 Number of Drinks Per Day: 1 Total Drinks Per Week: 0 - Recreational Drug Use Recreational Drug Use: No - Living Situation & Occupation Living situation: Reports: , with Spouse Occupation: Employed Review of Systems - Review of Systems Constitutional: Reports: No Symptoms Eyes: Reports: No Symptoms Mouth/Throat: Reports: No Symptoms Respiratory: Denies: Shortness of Breath, Pleuritic Chest Pain Cardiovascular: Denies: Chest Pain GI/Abdominal: Denies: Abdominal Pain, Nausea, Vomiting Musculoskeletal: Reports: Leg Pain (she's been having more severe discomfort right lower leg), Joint Pain (there is been some discomfort right knee) Skin: Reports: Bruising (right lower leg) Neurological: Denies: Numbness, Tingling ED EXAM, GENERAL - Physical Exam Throat/Mouth: Normal Inspection Head: Atraumatic. No: Facial Swelling Neck: Supple, Full Range of Motion Respiratory/Chest: No Respiratory Distress, Lungs Clear, Normal Breath Sounds, Chest Non-Tender Cardiovascular: Regular Rate, Rhythm GI/Abdominal: Soft, Non-Tender Extremities: Other (there is diffuse swelling of the lower leg mild posterior calf tenderness no warmth or erythema). No: Joint Swelling (there is some tenderness of the medial aspect of the knee and some bruising just below her knee) Neurological: Alert, Oriented, No Motor/Sensory Deficits Skin Exam: Warm, Dry, Normal Color, Ecchymosis (there is some bruising of the lower leg just below the right knee) Course - Re-Assessments/Exams Free Text/Narrative Re-Assessment/Exam: 02/04/17 08:48 x-rays of the tib-fib were negative for fracture. Ultrasound of the right lower leg was negative for DVT. Departure - Departure Time of Disposition: 14:14 Condition: Fair
--- NOTE | 2017-01-29 10:41 | CR ---
Right tibia and fibula: 2 views of the right tibia and fibula were obtained. Varicosities are partially seen within the soft tissues. Soft tissue calcifications are also noted. Bony structures are osteopenic. Mild arterial calcification is seen. Mildly depressed lateral tibial plateau is seen. Difficult to exclude acute fracture. No additional bony abnormality is identified. Impression: 1. Slightly depressed lateral tibial plateau possibly acute. Please correlate with the patient's symptoms and if further evaluation is needed, formal knee exam is recommended. 2. Other incidental findings as noted above. Diagnostic code #3
== END 2017-01-28 14:24 | disposition home or self-care (01) ==
LOC: JD.ED 11:29
DX: S80.01XA Contusion of right knee, initial encounter (principal); I10 Essential (primary) hypertension; E78.00 Pure hypercholesterolemia, unspecified; K21.9 Gastro-esophageal reflux disease without esophagitis; F41.9 Anxiety disorder, unspecified; E03.9 Hypothyroidism, unspecified; Z85.828 Personal history of other malignant neoplasm of skin; Z87.440 Personal history of urinary (tract) infections; Z98.49 Cataract extraction status, unspecified eye; Z98.890 Other specified postprocedural states; Z87.891 Personal history of nicotine dependence; Z95.0 Presence of cardiac pacemaker; Z79.82 Long term (current) use of aspirin; Z79.899 Other long term (current) drug therapy; Z88.0 Allergy status to penicillin; Z88.1 Allergy status to other antibiotic agents; Z88.6 Allergy status to analgesic agent; X58.XXXA Exposure to other specified factors, initial encounter
CPT/HCPCS: 73590; 93971; 99284; A9270

== ENCOUNTER 2017-01-30 10:33 | Emergency (ER) | payer MEDICARE, BC ==
[2017-01-30 11:03] VITALS: BP 156/85
--- NOTE | 2017-01-30 11:48 | EDM.PDOC ---
ED HPI GENERAL MEDICAL PROBLEM - General Chief Complaint: Lower Extremity Injury/Pain Stated Complaint: LEGS SWOLLEN Time Seen by Provider: 01/30/17 11:22 Source of Information: Reports: Patient History Limitations: Reports: No Limitations - History of Present Illness INITIAL COMMENTS - FREE TEXT/NARRATIVE: Patient is a 76-year-old female who reports to the ED to have a CT of the knee obtained. Patient fell on the affected leg and was evaluated 2 days ago in the ED with concerns of having a blood clot. X-ray was obtained revealing no acute bony abnormalities at that time. Ultrasound revealed no DVT. Final interpretation of the x-ray revealed slightly depressed lateral tibial plateau possibly acute. The patient continues to have symptoms to this area and thus was advised to come to the ED to have CT to better identify if any fracture present. She continues have pain to the tib-fib. In addition having some redness noted to the distal aspect of the tib-fib where bruising is present. Increased warmth is noted. Pain present. No drainage noted. She does have some swelling to the lateral aspect of her right ankle since injury. She has been weightbearing but notes increasing pain with ambulation to ankle. No numbness or tingling to her toes. Denies fever/chills, nausea/vomiting, no history of MRSA. Treatments ASSEMBLER WET WASH: Reports: Acetaminophen, Cold Therapy, Other Medication(s) Other Treatments ASSEMBLER WET WASH: tramadol Right Leg Pain Score (Numeric/FACES): 9 - Related Data Allergies Allergy/AdvReac Type Severity Reaction Status Date / Time ciprofloxacin Allergy Hives Verified 01/30/17 10:52 ibuprofen Allergy Hives Verified 01/30/17 10:52 penicillin G Allergy Hives Verified 01/30/17 10:52 Home Meds: Home Meds LORazepam 0.5 - 1 mg PO QID PRN 04/25/14 [History] Metoprolol Succinate [Toprol XL] 50 mg PO DAILY 04/25/14 [History] Pantoprazole [ProTONIX] 40 mg PO DAILY 04/25/14 [History] Pravastatin [Pravachol] 10 mg PO DAILY 04/25/14 [History] Aspirin [Franck Chewable Aspirin] 81 mg PO DAILY 05/23/14 [History] Levothyroxine [Synthroid] 75 mcg PO DAILY 04/26/16 [History] Losartan Potassium 100 mg PO DAILY 04/26/16 [History] amLODIPine [Norvasc] 2.5 mg PO DAILY 10/18/16 [History] traMADol HCl [Tramadol HCl] 50 mg PO Q6H PRN #30 tablet 10/20/16 [Rx] Acetaminophen [Tylenol Extra Strength] 500 mg PO TID PRN 01/30/17 [History] Doxycycline [Vibramycin] 100 mg PO Q12HR #14 cap 01/30/17 [Rx] Past Medical History - Past Health History Medical/Surgical History: Denies Medical/Surgical History HEENT History: Reports: Cataract Other HEENT History: wears eyeglasses Cardiovascular History: Reports: High Cholesterol, Hypertension, Other (See Below) Other Cardiovascular History: cardiac arrest -shocked 2 times and sent to [place] almost 3 yrs ago Gastrointestinal History: Reports: Colon Polyp, GERD Genitourinary History: Reports: UTI, Recurrent PROPOSAL MANAGER History: Reports: Musculoskeletal History: Reports: Back Pain, Chronic Other Musculoskeletal History: currently has back pain and both of her knees hurt Psychiatric History: Reports: Anxiety Endocrine/Metabolic History: Reports: Hypothyroidism Oncologic (Cancer) History: Reports: Squamous Cell Carcinoma - Infectious Disease History Infectious Disease History: Reports: Measles - Past Surgical History HEENT Surgical History: Reports: Cataract Surgery, Tonsillectomy Cardiovascular Surgical History: Reports: Pacer Social & Family History - Family History Family Medical History: Noncontributory Oncologic: Reports: Other (See Below) Other Oncologic Family History: throat - Tobacco Use Smoking Status *Q: Never Smoker Years of Tobacco use: 20 Used Tobacco, but Quit: Yes Month Tobacco Last Used: unknown Second Hand Smoke Exposure: No - Caffeine Use Caffeine Use: Reports: Coffee - Alcohol Use Days Per Week of Alcohol Use: 0 Number of Drinks Per Day: 1 Total Drinks Per Week: 0 - Recreational Drug Use Recreational Drug Use: No - Living Situation & Occupation Living situation: Reports: , with Spouse Occupation: Employed Review of Systems - Review of Systems Review Of Systems: ROS reveals no pertinent complaints other than HPI. ED EXAM, GENERAL - Physical Exam Exam: See Below Exam Limited By: No Limitations General Appearance: Alert, WD/WN, No Apparent Distress Ears: Hearing Grossly Normal Nose: Normal Inspection Throat/Mouth: Normal Voice, No Airway Compromise Neck: Normal Inspection, Supple Respiratory/Chest: No Respiratory Distress, No Accessory Muscle Use Cardiovascular: Normal Peripheral Pulses, Regular Rate, Rhythm Peripheral Pulses: 2+: Posterior Tibial (R) Extremities: Other (Mild swelling noted to the tib-fib and ankle. Ecchymosis present to the medial aspect of the left knee and also lateral aspect of the distal tib-fib. Increased redness localized to the distal tib-fib. Swelling noted to the right lateral ankle with increasing pain with palpation. Decreased range of motion noted. No sensory deficits noted. Patient notes no increasing pain to the right knee.) Neurological: Alert, Oriented, Normal Cognition, No Motor/Sensory Deficits Psychiatric: Normal Affect, Normal Mood Skin Exam: Warm, Dry, Intact Course - Vital Signs Last Recorded V/S: Last Vital Signs Temp 97.5 F 01/30/17 11:00 Pulse 69 01/30/17 11:00 Resp 18 01/30/17 11:00 BP 156/85 H 01/30/17 11:00 Pulse Ox 97 01/30/17 11:00 - Orders/Labs/Meds Meds: Medications Discontinued Medications Generic Name Dose Route Start Last Admin Trade Name Duyq PRN Reason Stop Dose Admin Doxycycline Hyclate 100 mg 01/30/17 12:19 01/30/17 12:28 Vibramycin PO 01/30/17 12:20 100 mg ONETIME ONE Administration - Re-Assessments/Exams Free Text/Narrative Re-Assessment/Exam: CT of the right knee ordered. With further examination patient has worsening pain and swelling to the right lateral ankle. Will order an x-ray of the right ankle. In addition there is a small area of erythematous with increasing pain and warmth noted. Concerning for cellulitis. She is allergic penicillin and had hives as a reaction. No history of anaphylaxis but the patient is a poor historian. I have opted to go with doxycycline 100 mg twice a day. This is been ordered as well. CT right knee Technique: Multiple axial sections were obtained. Reconstructed coronal and sagittal images were obtained. Comparison: Previous right tibia/fibula radiograph of 01/28/17. Findings: Joint space narrowing is seen within the medial joint. No fracture is seen within the tibia or distal femur as was questioned on previous plain film study. Minimal osteophytes are seen off the lateral and medial joints. Proximal fibula is intact. Vascular calcification is seen. Minimal degenerative change is noted within the patellofemoral joint. Mild subcutaneous edema is seen. Impression: 1. Degenerative change as noted above. 2. Mild subcutaneous edema. 3. No acute fracture is identified as questioned on previous plain film exam. X-ray of the right ankle impression: No acute bony abnormality is identified within the right ankle. Will discharge patient home with instructions for cellulitis, contusions, and ankle sprain. Walking boot provided. Departure - Departure Time of Disposition: 13:10 Disposition: Home, Self-Care 01 Condition: Good Clinical Impression: Multiple leg contusions Qualifiers: Encounter type: subsequent encounter Laterality: right Qualified Code(s): S80.11XD - Contusion of right lower leg, subsequent encounter Cellulitis Qualifiers: Site of cellulitis: extremity Site of cellulitis of extremity: lower extremity Laterality: right Qualified Code(s): L03.115 - Cellulitis of right lower limb Right ankle sprain Qualifiers: Encounter type: subsequent encounter Involved ligament of ankle: unspecified ligament Qualified Code(s): S93.401D - Sprain of unspecified ligament of right ankle, subsequent encounter - Discharge Information Prescriptions: Doxycycline [Vibramycin] 100 mg PO Q12HR #14 cap Instructions: Ankle Sprain, [id number] Referrals: Jenny Waddell, BRUSHER TENDER [Primary Care Provider] - Forms: ED Department Discharge Additional Instructions: As discussed CT of the right knee and x-ray of the right ankle did not reveal any acute bony abnormalities. Examination suggest you have an ankle sprain. Thus treatment is walking boot for the next 7-14 days. Elevate when able to reduce any swelling and pain. Apply ice to the affected area 4-6 times daily, 20 to duration, do not place ice directly on the skin. Tylenol for pain. In addition there is a small patchy area of redness concerning for cellulitis. Treatment is doxycycline 100 mg twice a day for 7 days. Please follow up with PCP at conclusion of therapy to ensure resolution. Return to ED for any new or worsening symptoms.
[2017-01-30] MEDS ORDERED: Doxycycline 100 MG Cap PO ONE (12:19)
--- NOTE | 2017-01-30 12:57 | CR ---
Right ankle: Four views of the right ankle were obtained. Comparison: Previous right tibia/fibula study of 01/28/17. Soft tissue swelling is identified. Soft tissue calcifications are seen within the lower extremity which are felt to be incidental. No acute fracture, dislocation or other bony abnormality is identified. Impression: 1. Findings as noted above. No acute bony abnormality is identified within the right ankle. Diagnostic code #2
--- NOTE | 2017-01-30 13:17 | CT ---
CT right knee Technique: Multiple axial sections were obtained. Reconstructed coronal and sagittal images were obtained. Comparison: Previous right tibia/fibula radiograph of 01/28/17. Findings: Joint space narrowing is seen within the medial joint. No fracture is seen within the tibia or distal femur as was questioned on previous plain film study. Minimal osteophytes are seen off the lateral and medial joints. Proximal fibula is intact. Vascular calcification is seen. Minimal degenerative change is noted within the patellofemoral joint. Mild subcutaneous edema is seen. Impression: 1. Degenerative change as noted above. 2. Mild subcutaneous edema. 3. No acute fracture is identified as questioned on previous plain film exam. Diagnostic code #2 MTDD
== END 2017-01-30 13:46 | disposition home or self-care (01) ==
LOC: JD.ED 10:33
DX: L03.115 Cellulitis of right lower limb (principal); S93.401A Sprain of unspecified ligament of right ankle, initial encounter; S80.11XA Contusion of right lower leg, initial encounter; I10 Essential (primary) hypertension; E03.9 Hypothyroidism, unspecified; K21.9 Gastro-esophageal reflux disease without esophagitis; Z87.440 Personal history of urinary (tract) infections; Z88.1 Allergy status to other antibiotic agents; Z88.0 Allergy status to penicillin; Z79.899 Other long term (current) drug therapy; Z79.82 Long term (current) use of aspirin; W19.XXXA Unspecified fall, initial encounter
CPT/HCPCS: 73610; 73700; 99284; A9270

== ENCOUNTER 2017-05-23 15:28 | Emergency (ER) | payer MEDICARE, BC ==
[2017-05-23 15:39] VITALS: BP 157/79
[2017-05-23] MEDS ORDERED: Potassium Chloride 20 MEQ Tab.ER PO ONE (16:59)
--- NOTE | 2017-05-23 17:03 | EDM.PDOC ---
ED HPI GENERAL MEDICAL PROBLEM - General Chief Complaint: Cardiovascular Problem Stated Complaint: LOW BP,CHEST PAIN Time Seen by Provider: 05/23/17 16:37 Source of Information: Reports: Patient, Family (Son) History Limitations: Reports: No Limitations - History of Present Illness INITIAL COMMENTS - FREE TEXT/NARRATIVE: The patient states that she developed lightheadedness and generalized weakness around 14:30 this afternoon. She states that she was stressed at the time, and those symptoms have since resolved. She states that she developed central chest pressure, a pain, around 15:00. The pain was not modifiable, and is now very slight. She states that she developed a headache around 15:30, which continues. She states that around this time she checked her blood pressure and found it to be low at 85/70. She rechecked it a short while later, and it was 107/?, With a heart rate of 91. She took Ativan 0.5 mg and aspirin 81 mg around 15:00. The patient states that she has had similar symptoms, although not lasting as long, related to anxiety. The patient relates that she had a prior cardiac arrest, but when questioned about this, she states that her "heart stopped" because her potassium was down to 2.5, related to excessive Lasix. She acknowledges that she does not have a history of coronary artery disease. She states that she has previously undergone 2 coronary angiograms, the most recent around 2014, and that both were clean. The patient's last stress test was about 10 or 12 years ago. The patient's PCP is Jenny Waddell. Left Chest Pain Score (Numeric/FACES): 7 - Related Data Allergies Allergy/AdvReac Type Severity Reaction Status Date / Time ciprofloxacin Allergy Hives Verified 05/23/17 15:39 ibuprofen Allergy Hives Verified 05/23/17 15:39 penicillin G Allergy Hives Verified 05/23/17 15:39 Home Meds: Home Meds LORazepam 0.5 - 1 mg PO QID PRN 04/25/14 [History] Metoprolol Succinate [Toprol XL] 50 mg PO DAILY 04/25/14 [History] Pantoprazole [ProTONIX] 40 mg PO DAILY 04/25/14 [History] Pravastatin [Pravachol] 10 mg PO DAILY 04/25/14 [History] Aspirin [Franck Chewable Aspirin] 81 mg PO DAILY 05/23/14 [History] Levothyroxine [Synthroid] 75 mcg PO DAILY 04/26/16 [History] Losartan Potassium 100 mg PO DAILY 04/26/16 [History] amLODIPine [Norvasc] 2.5 mg PO DAILY 10/18/16 [History] traMADol HCl [Tramadol HCl] 50 mg PO Q6H PRN #30 tablet 10/20/16 [Rx] Acetaminophen [Tylenol Extra Strength] 500 mg PO TID PRN 01/30/17 [History] Doxycycline [Vibramycin] 100 mg PO Q12HR #14 cap 01/30/17 [Rx] Past Medical History HEENT History: Reports: Impaired Vision Other HEENT History: wears eyeglasses Cardiovascular History: Reports: High Cholesterol, Hypertension Gastrointestinal History: Reports: Colon Polyp, GERD 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 TRAINER History: Reports: Musculoskeletal History: Reports: Back Pain, Chronic Psychiatric History: Reports: Anxiety Endocrine/Metabolic History: Reports: Hypothyroidism Oncologic (Cancer) History: Reports: Squamous Cell Carcinoma - Infectious Disease History Infectious Disease History: Reports: Measles - Past Surgical History HEENT Surgical History: Reports: Cataract Surgery, Tonsillectomy Cardiovascular Surgical History: Reports: AICD, Other (See Below) (Coronary angiogram x 2 - both clean) Female Surgical History: Reports: Hysterectomy, Salpingo-Oophorectomy Social & Family History - Family History Family Medical History: Noncontributory Oncologic: Reports: Other (See Below) Other Oncologic Family History: throat - Tobacco Use Smoking Status *Q: Never Smoker Second Hand Smoke Exposure: No - Caffeine Use Caffeine Use: Reports: Coffee - Alcohol Use Alcohol Use History: Yes Days Per Week of Alcohol Use: 0 Number of Drinks Per Day: 1 Total Drinks Per Week: 0 Alcohol Use Frequency: Rarely - Recreational Drug Use Recreational Drug Use: No - Living Situation & Occupation Living situation: Reports: , with Spouse Occupation: Retired ED ROS GENERAL - Review of Systems Review Of Systems: ROS reveals no pertinent complaints other than HPI. ED EXAM, GENERAL - Physical Exam Exam: See Below Exam Limited By: No Limitations General Appearance: Alert, WD/WN, No Apparent Distress Eye Exam: Bilateral Eye: Normal Inspection Ears: Normal External Exam, Hearing Grossly Normal Nose: Normal Inspection, No Blood Throat/Mouth: Normal Inspection, Normal Lips, Normal Voice, No Airway Compromise Head: Atraumatic, Normocephalic Neck: Normal Inspection, Full Range of Motion Respiratory/Chest: No Respiratory Distress, Lungs Clear, Normal Breath Sounds, No Accessory Muscle Use Cardiovascular: Normal Peripheral Pulses, Regular Rate, Rhythm, No Gallop, No JVD, No Murmur, No Rub Peripheral Pulses: 4+: Radial (L), Radial (R) GI/Abdominal: Normal Bowel Sounds, Soft, Non-Tender, No Organomegaly, No Distention, No Abnormal Bruit, No Mass (Female) Exam: Deferred Rectal (Female) Exam: Deferred Back Exam: Normal Inspection, Full Range of Motion, NT Extremities: Normal Inspection, Normal Range of Motion, No Pedal Edema, Normal Capillary Refill Neurological: Alert, Oriented, Normal Cognition, No Motor/Sensory Deficits Psychiatric: Normal Affect Skin Exam: Warm, Dry, Intact, Normal Color, No Rash EKG INTERPRETATION EKG Date: 05/23/17 Time: 15:38 Rhythm: NSR Rate (Beats/Min): 60 [place]: LAD-Left [place] Deviation (+ LVH) P-Wave: Present (1st degree AVB) QRS: Normal ST-T: Normal QT: Normal Comparison: No Change (04/26/2016) Course - Vital Signs Last Recorded V/S: Last Vital Signs Temp 36.7 C 05/23/17 15:35 Pulse 59 L 05/23/17 15:35 Resp 14 05/23/17 15:35 BP 157/79 H 05/23/17 15:35 Pulse Ox 97 05/23/17 15:35 Orthostatic Blood Pressure [ 132/82 Standing] Orthostatic Blood Pressure [ 141/84 Sitting] Orthostatic Blood Pressure [ 128/63 Supine] - Orders/Labs/Meds Orders: Active Orders 24 hr Category Date Time Status EKG Documentation Completion [RC] ASDIRECTED Care 05/23/17 15:42 Active EKG Documentation Completion [RC] ASDIRECTED Care 05/23/17 19:00 Active Orthostatic Vital Signs [RC] STAT Care 05/23/17 16:56 Active EKG 12 Lead [EK] Stat Ther 05/23/17 15:40 Ordered Labs: Laboratory Tests 05/23/17 05/23/17 05/23/17 Range/Units 15:35 15:35 15:35 WBC 5.84 (3.98-10.04) K/mm3 RBC 4.44 (3.98-5.22) M/mm3 Hgb 13.5 (11.2-15.7) gm/L Hct 39.5 (34.1-44.9) % MCV 89.0 (79.4-94.8) fl MCH 30.4 (25.6-32.2) pg MCHC 34.2 (32.2-35.5) g/dl RDW Std Deviation 38.8 (36.4-46.3) fL Plt Count 179 L (182-369) K/mm3 MPV 9.5 (9.4-12.3) fl Neut % (Auto) 46.0 (34.0-71.1) % Lymph % (Auto) 38.2 (19.3-51.7) % [place] % (Auto) 12.0 (4.7-12.5) % Eos % (Auto) 2.7 (0.7-5.8) Baso % (Auto) 0.9 (0.1-1.2) % Neut # (Auto) 2.69 (1.56-6.13) K/mm3 Lymph # (Auto) 2.23 (1.18-3.74) K/mm3 [place] # (Auto) 0.70 H (0.24-0.36) K/mm3 Eos # (Auto) 0.16 (0.04-0.36) K/mm3 Baso # (Auto) 0.05 (0.01-0.08) K/mm3 D-Dimer, Quantitative 0.61 H (0.19-0.59) mg/L Sodium 145 (136-145) mEq/L Potassium 3.2 L (3.5-5.1) mEq/L Chloride 108 H (98-107) mEq/L Carbon Dioxide 29 (21-32) mEq/L Anion Gap 11.2 (5-15) BUN 10 (7-18) mg/dL Creatinine 0.6 (0.55-1.02) mg/dL Est Cr Clr Drug Dosing 80.47 mL/min Estimated GFR (MDRD) > 60 (>60) mL/min BUN/Creatinine Ratio 16.7 (14-18) Glucose 110 (83-115) mg/dL Calcium 8.6 (8.5-10.1) mg/dL Magnesium (1.8-2.4) mg/dl Total Bilirubin 0.7 (0.2-1.0) mg/dL AST 17 (15-37) U/L ALT 19 (14-59) U/L Alkaline Phosphatase 69 (46-116) U/L Troponin I < 0.017 (0.00-0.056) ng/mL Total Protein 6.9 (6.4-8.2) g/dl Albumin 3.6 (3.4-5.0) g/dl Globulin 3.3 gm/dL Albumin/Globulin Ratio 1.1 (1-2) Urine Color (Yellow) Urine Appearance (Clear) Urine pH (5.0-8.0) Ur Specific [place] (1.005-1.030) Urine Protein (Negative) Urine Glucose (UA) (Negative) Urine Ketones (Negative) Urine Occult Blood (Negative) Urine Nitrite (Negative) Urine Bilirubin (Negative) Urine Urobilinogen (0.2-1.0) Ur Leukocyte Esterase (Negative) Urine RBC (0-5) /hpf Urine WBC (0-5) /hpf Ur Epithelial Cells (0-5) /hpf Urine Bacteria (FEW) /hpf Urine Mucus (FEW) /hpf 05/23/17 05/23/17 05/23/17 Range/Units 15:36 17:23 19:00 WBC (3.98-10.04) K/mm3 RBC (3.98-5.22) M/mm3 Hgb (11.2-15.7) gm/L Hct (34.1-44.9) % MCV (79.4-94.8) fl MCH (25.6-32.2) pg MCHC (32.2-35.5) g/dl RDW Std Deviation (36.4-46.3) fL Plt Count (182-369) K/mm3 MPV (9.4-12.3) fl Neut % (Auto) (34.0-71.1) % Lymph % (Auto) (19.3-51.7) % [place] % (Auto) (4.7-12.5) % Eos % (Auto) (0.7-5.8) Baso % (Auto) (0.1-1.2) % Neut # (Auto) (1.56-6.13) K/mm3 Lymph # (Auto) (1.18-3.74) K/mm3 [place] # (Auto) (0.24-0.36) K/mm3 Eos # (Auto) (0.04-0.36) K/mm3 Baso # (Auto) (0.01-0.08) K/mm3 D-Dimer, Quantitative (0.19-0.59) mg/L Sodium (136-145) mEq/L Potassium (3.5-5.1) mEq/L Chloride (98-107) mEq/L Carbon Dioxide (21-32) mEq/L Anion Gap (5-15) BUN (7-18) mg/dL Creatinine (0.55-1.02) mg/dL Est Cr Clr Drug Dosing mL/min Estimated GFR (MDRD) (>60) mL/min BUN/Creatinine Ratio (14-18) Glucose (83-115) mg/dL Calcium (8.5-10.1) mg/dL Magnesium 2.0 (1.8-2.4) mg/dl Total Bilirubin (0.2-1.0) mg/dL AST (15-37) U/L ALT (14-59) U/L Alkaline Phosphatase (46-116) U/L Troponin I < 0.017 (0.00-0.056) ng/mL Total Protein (6.4-8.2) g/dl Albumin (3.4-5.0) g/dl Globulin gm/dL Albumin/Globulin Ratio (1-2) Urine Color Yellow (Yellow) Urine Appearance Clear (Clear) Urine pH 6.5 (5.0-8.0) Ur Specific [place] 1.020 (1.005-1.030) Urine Protein Negative (Negative) Urine Glucose (UA) Negative (Negative) Urine Ketones Negative (Negative) Urine Occult Blood Trace-lysed H (Negative) Urine Nitrite Negative (Negative) Urine Bilirubin Negative (Negative) Urine Urobilinogen 0.2 (0.2-1.0) Ur Leukocyte Esterase Negative (Negative) Urine RBC 0-5 (0-5) /hpf Urine WBC 0-5 (0-5) /hpf Ur Epithelial Cells 0-5 (0-5) /hpf Urine Bacteria Not seen (FEW) /hpf Urine Mucus Not seen (FEW) /hpf Meds: Medications Discontinued Medications Generic Name Dose Route Start Last Admin Trade Name Freq PRN Reason Stop Dose Admin Potassium Chloride 40 meq 05/23/17 16:59 05/23/17 17:11 Burton-Hemant M20 PO 05/23/17 17:00 40 meq ONETIME ONE Administration - Re-Assessments/Exams Free Text/Narrative Re-Assessment/Exam: 05/23/17 16:57 The patient's D-dimer has returned slightly elevated at 0.61 (upper limit of normal is 0.59), which I believe can be explained merely by the patient's age. I do not believe it is consistent with a PE. The patient's potassium is slightly depressed at 3.2. I will order 40 mEq potassium chloride. The remainder of the patient's initial workup is unremarkable. I suspect that the patient's symptoms of chest pain, lightheadedness, headache, and generalized weakness are due to anxiety, however, while I believe the likelihood is low, they could be cardiac related. I am therefore recommending a second troponin and ECG to be drawn 4 hours after the onset of the patient's symptoms, around 19:00. The patient is agreeable. 05/23/17 17:25 The patient is not orthostatic. 05/23/17 19:45 The patient's second ECG at 18:54 temperature to normal sinus rhythm at 60 BPM. There is a first-degree AV block. There are no acute ST or T-wave changes. There is LAD. There is LVH. No significant change from the earlier ECG. The patient's second troponin remains undetectable. The above was discussed with the patient and her son. As above, I suspect that the patient's symptoms were due to anxiety, and both the patient and her son agree. I did recommend, however, that if they wanted to look further into the possibility of today's events being cardiac related, but a stress test would be in order. Patient stated that she will follow-up with her PCP to discuss that. Departure - Departure Time of Disposition: 19:48 Disposition: Home, Self-Care 01 Condition: Good Clinical Impression: Anxiety Referrals: Jenny Waddell TRAVELING CONSTRUCTION SUPERINTENDENT [Primary Care Provider] - Forms: ED Department Discharge Additional Instructions: You were seen in the emergency room for lightheadedness, generalized weakness, chest pain, and a headache. Workup in the ER included blood work, 2 sets of cardiac enzymes, a urinalysis, 2 ECGs, and positional blood pressure checks. Your entire workup was unremarkable. You have not suffered a heart attack. You do not have a blood clot in your lungs. You are not anemic. You are not dehydrated or intravascularly depleted. The cause of your symptoms is MOST LIKELY due to stress/anxiety, however, you may consider following up with your PCP to arrange for a cardiac stress test. If any other problems, please do not hesitate to return to the ER. - My Orders Last 24 Hours: My Active Orders 05/23/17 15:40 EKG 12 Lead [EK] Stat 05/23/17 15:42 EKG Documentation Completion [RC] ASDIRECTED 05/23/17 16:56 Orthostatic Vital Signs [RC] STAT 05/23/17 19:00 EKG Documentation Completion [RC] ASDIRECTED - Assessment/Plan Last 24 Hours: My Active Orders 05/23/17 15:40 EKG 12 Lead [EK] Stat 05/23/17 15:42 EKG Documentation Completion [RC] ASDIRECTED 05/23/17 16:56 Orthostatic Vital Signs [RC] STAT 05/23/17 19:00 EKG Documentation Completion [RC] ASDIRECTED
== END 2017-05-23 20:00 | disposition home or self-care (01) ==
LOC: JD.ED 15:28
DX: F41.9 Anxiety disorder, unspecified (principal); E78.00 Pure hypercholesterolemia, unspecified; I10 Essential (primary) hypertension; Z88.1 Allergy status to other antibiotic agents; Z88.0 Allergy status to penicillin; Z79.899 Other long term (current) drug therapy; Z79.82 Long term (current) use of aspirin
CPT/HCPCS: 36415; 80053; 81001; 83735; 84484; 85025; 85379; 93005; 99285; A9270; 93010; 99284

== ENCOUNTER 2017-07-13 13:25 | Emergency (ER) | payer MEDICARE, BC ==
[2017-07-13 13:38] VITALS: BP 179/97
[2017-07-13] MEDS ORDERED: Sodium Chloride 0.9% 10 ML Syringe FLUSH PRN (13:51)
--- NOTE | 2017-07-13 13:52 | EDM.PDOC ---
ED HPI GENERAL MEDICAL PROBLEM - General Chief Complaint: Neck Problem Stated Complaint: NECK PAIN Time Seen by Provider: 07/13/17 13:49 Source of Information: Reports: Patient, Family (Son), RN Notes Reviewed - History of Present Illness INITIAL COMMENTS - FREE TEXT/NARRATIVE: 76-year-old lady has been referred here from [facility] for evaluation of jaw discomfort and intermittent chest discomfort. She does have long-standing history of hypertension. She has had swelling and discomfort of her right jaw worsening over the past month. She was seen by her weed inspector at the clinic today. He was concerned that her jaw discomfort may be from more than just the cyst on her jaw, concern of cardiac etiology. She also did have some chest discomfort earlier this past morning when questioned about that she stated it was just kind of anginal type discomfort and nothing long lasting. You should' ve discomfort to either shoulder or arm. She has had prior cardiac stress exam but it has been a while he has no documented history for coronary artery disease. She is not diabetic. She does not smoke. Her right neck also does give her some discomfort worse with certain types of motion of her head that does appear to be relatively chronic. Chest Pain Score (Numeric/FACES): 5 Face Pain Score (Numeric/FACES): 7 - Related Data Allergies Allergy/AdvReac Type Severity Reaction Status Date / Time ciprofloxacin Allergy Hives Verified 07/13/17 13:38 ibuprofen Allergy Hives Verified 07/13/17 13:38 penicillin G Allergy Hives Verified 07/13/17 13:38 Home Meds: Home Meds LORazepam 0.5 - 1 mg PO QID PRN 04/25/14 [History] Metoprolol Succinate [Toprol XL] 50 mg PO DAILY 04/25/14 [History] Pantoprazole [ProTONIX] 40 mg PO DAILY 04/25/14 [History] Pravastatin [Pravachol] 10 mg PO DAILY 04/25/14 [History] Aspirin [Franck Chewable Aspirin] 81 mg PO DAILY 05/23/14 [History] Levothyroxine [Synthroid] 75 mcg PO DAILY 04/26/16 [History] Losartan Potassium 100 mg PO DAILY 04/26/16 [History] amLODIPine [Norvasc] 2.5 mg PO DAILY 10/18/16 [History] traMADol HCl [Tramadol HCl] 50 mg PO Q6H PRN #30 tablet 10/20/16 [Rx] Acetaminophen [Tylenol Extra Strength] 500 mg PO TID PRN 01/30/17 [History] Doxycycline [Vibramycin] 100 mg PO Q12HR #14 cap 01/30/17 [Rx] Past Medical History - Past Health History Medical/Surgical History: Denies Medical/Surgical History HEENT History: Reports: Impaired Vision Other HEENT History: wears eyeglasses Cardiovascular History: Reports: High Cholesterol, Hypertension Other Cardiovascular History: cardiac arrest -shocked 2 times and sent to [place] almost 3 yrs ago Gastrointestinal History: Reports: Colon Polyp, GERD Genitourinary History: Reports: UTI, Recurrent 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: Musculoskeletal History: Reports: Back Pain, Chronic Other Musculoskeletal History: currently has back pain and both of her knees hurt Psychiatric History: Reports: Anxiety Endocrine/Metabolic History: Reports: Hypothyroidism Oncologic (Cancer) History: Reports: Squamous Cell Carcinoma - Infectious Disease History Infectious Disease History: Reports: Measles - Past Surgical History HEENT Surgical History: Reports: Cataract Surgery, Tonsillectomy Cardiovascular Surgical History: Reports: AICD Female Surgical History: Reports: Hysterectomy, Salpingo-Oophorectomy Social & Family History - Family History Family Medical History: Noncontributory Oncologic: Reports: Other (See Below) Other Oncologic Family History: throat - Tobacco Use Smoking Status *Q: Never Smoker Years of Tobacco use: 20 Used Tobacco, but Quit: Yes Month Tobacco Last Used: unknown Second Hand Smoke Exposure: No - Caffeine Use Caffeine Use: Reports: Coffee - Alcohol Use Days Per Week of Alcohol Use: 0 Number of Drinks Per Day: 1 Total Drinks Per Week: 0 - Recreational Drug Use Recreational Drug Use: No - Living Situation & Occupation Living situation: Reports: , with Spouse Occupation: Retired ED ROS GENERAL - Review of Systems Review Of Systems: See Below Constitutional: Denies: Fever, Chills, Diaphoresis HEENT: Reports: Other (She is been having right jaw discomfort and also swelling of the right jaw worsening over the past month) Respiratory: Denies: Shortness of Breath, Wheezing, Pleuritic Chest Pain Cardiovascular: Reports: Chest Pain (Occasional jolts across her chest and occasional brief episodes of heaviness without radiation to either shoulder or arm) GI/Abdominal: Denies: Abdominal Pain, Nausea, Vomiting Musculoskeletal: Reports: Neck Pain (Chronic more on the right posterior side) Skin: Reports: No Symptoms Neurological: Reports: No Symptoms ED EXAM, GENERAL - Physical Exam Exam: See Below General Appearance: Alert, No Apparent Distress Eye Exam: Bilateral Eye: PERRL Throat/Mouth: Normal Inspection Head: Atraumatic. No: Facial Swelling Neck: Supple Respiratory/Chest: No Respiratory Distress, Lungs Clear, Normal Breath Sounds Cardiovascular: Regular Rate, Rhythm, No Edema GI/Abdominal: Soft, Non-Tender Back Exam: No: CVA Tenderness (L), CVA Tenderness (R) Extremities: Normal Inspection. No: Pedal Edema, Leg Pain Neurological: Oriented, No Motor/Sensory Deficits Skin Exam: Warm, Dry, Normal Color EKG INTERPRETATION EKG Date: 07/13/17 Rhythm: NSR [place]: Normal P-Wave: Present QRS: Other (Q waves present leads 3 and aVF) ST-T: Normal Course - Vital Signs Last Recorded V/S: Last Vital Signs Temp 97.1 F 07/13/17 13:34 Pulse 68 07/13/17 13:34 Resp 18 07/13/17 13:34 BP 179/97 H 07/13/17 13:34 Pulse Ox 96 07/13/17 13:34 - Orders/Labs/Meds Orders: Active Orders 24 hr Category Date Time Status EKG 12 Lead [EKG Documentation Completion] [RC] STAT Care 07/13/17 13:51 Active Peripheral IV Care [RC] . DIRECTED Care 07/13/17 13:52 Active Sodium Chloride 0.9% [Saline Flush] Med 07/13/17 13:51 Active 10 ml FLUSH ASDIRECTED PRN Peripheral IV Insertion Adult [OM.PC] Stat Oth 07/13/17 13:52 Ordered Medication Orders Sodium Chloride (Saline Flush) 10 ml FLUSH ASDIRECTED PRN PRN Reason: Keep Vein Open Last Admin: 07/13/17 14:23 Dose: 10 ml Labs: Laboratory Tests 07/13/17 07/13/17 Range/Units 14:05 14:05 WBC 5.35 (3.98-10.04) K/mm3 RBC 4.56 (3.98-5.22) M/mm3 Hgb 14.0 (11.2-15.7) gm/L Hct 40.0 (34.1-44.9) % MCV 87.7 (79.4-94.8) fl MCH 30.7 (25.6-32.2) pg MCHC 35.0 (32.2-35.5) g/dl RDW Std Deviation 38.0 (36.4-46.3) fL Plt Count 119 L (182-369) K/mm3 MPV 10.0 (9.4-12.3) fl Neut % (Auto) 50.4 (34.0-71.1) % Lymph % (Auto) 35.7 (19.3-51.7) % [place] % (Auto) 9.2 (4.7-12.5) % Eos % (Auto) 4.1 (0.7-5.8) Baso % (Auto) 0.4 (0.1-1.2) % Neut # (Auto) 2.70 (1.56-6.13) K/mm3 Lymph # (Auto) 1.91 (1.18-3.74) K/mm3 [place] # (Auto) 0.49 H (0.24-0.36) K/mm3 Eos # (Auto) 0.22 (0.04-0.36) K/mm3 Baso # (Auto) 0.02 (0.01-0.08) K/mm3 Manual Slide Review Abnormal smear Sodium 143 (136-145) mEq/L Potassium 3.6 (3.5-5.1) mEq/L Chloride 107 (98-107) mEq/L Carbon Dioxide 28 (21-32) mEq/L Anion Gap 11.6 (5-15) BUN 13 (7-18) mg/dL Creatinine 0.6 (0.55-1.02) mg/dL Est Cr Clr Drug Dosing 80.47 mL/min Estimated GFR (MDRD) > 60 (>60) mL/min BUN/Creatinine Ratio 21.7 H (14-18) Glucose 105 (83-115) mg/dL Calcium 9.1 (8.5-10.1) mg/dL Total Bilirubin 0.4 (0.2-1.0) mg/dL AST 21 (15-37) U/L ALT 19 (14-59) U/L Alkaline Phosphatase 80 (46-116) U/L Troponin I < 0.017 (0.00-0.056) ng/mL Total Protein 7.0 (6.4-8.2) g/dl Albumin 3.7 (3.4-5.0) g/dl Globulin 3.3 gm/dL Albumin/Globulin Ratio 1.1 (1-2) Meds: Medications Generic Name Dose Route Start Last Admin Trade Name Freq PRN Reason Stop Dose Admin Sodium Chloride 10 ml 07/13/17 13:51 07/13/17 14:23 Saline Flush FLUSH 10 ml ASDIRECTED PRN Administration Keep Vein Open - Re-Assessments/Exams Free Text/Narrative Re-Assessment/Exam: 07/13/17 16:45 Troponin came back normal, other labs are all relatively normal, alarm security or surveillance monitor shows occasional PVCs. Discharge instructions as documented. Departure - Departure Time of Disposition: 16:17 Disposition: Home, Self-Care 01 Condition: Fair Clinical Impression: Atypical chest pain Instructions: Nonspecific Chest Pain, [id number] Referrals: Jenny Waddell, CUSTOMER EQUIPMENT ENGINEER [Primary Care Provider] - Forms: ED Department Discharge Additional Instructions: Your heart has checked out well while here in the ED today. Continue current medications as prescribed. Follow-up with Haven at the clinic in about 3-5 days for recheck, further evaluation as needed. Call for appointment. Return to ED as needed if symptoms worsening in any way - My Orders Last 24 Hours: My Active Orders 07/13/17 13:51 EKG 12 Lead [EKG Documentation Completion] [RC] STAT Sodium Chloride 0.9% [Saline Flush] 10 ml FLUSH ASDIRECTED PRN 07/13/17 13:52 Peripheral IV Care [RC] . DIRECTED Peripheral IV Insertion Adult [OM.PC] Stat - Assessment/Plan Last 24 Hours: My Active Orders 07/13/17 13:51 EKG 12 Lead [EKG Documentation Completion] [RC] STAT Sodium Chloride 0.9% [Saline Flush] 10 ml FLUSH ASDIRECTED PRN 07/13/17 13:52 Peripheral IV Care [RC] . DIRECTED Peripheral IV Insertion Adult [OM.PC] Stat
== END 2017-07-13 16:40 | disposition home or self-care (01) ==
LOC: JD.ED 13:25
DX: R07.89 Other chest pain (principal); E78.00 Pure hypercholesterolemia, unspecified; I10 Essential (primary) hypertension; E03.9 Hypothyroidism, unspecified; Z88.1 Allergy status to other antibiotic agents; Z88.0 Allergy status to penicillin; Z88.6 Allergy status to analgesic agent; Z79.899 Other long term (current) drug therapy; Z79.82 Long term (current) use of aspirin
CPT/HCPCS: 36415; 80053; 84484; 85025; 93005; 99285; J7050; 99283

== ENCOUNTER 2018-06-04 14:33 | Inpatient (IN) | payer MEDICARE, BC ==
[2018-06-04] MEDS ORDERED: Sodium Chloride 0.9% 10 ML Syringe FLUSH PRN (14:48)
--- NOTE | 2018-06-04 14:49 | EDM.PDOC ---
ED HPI GENERAL MEDICAL PROBLEM - General Chief Complaint: Neuro Symptoms/Deficits Stated Complaint: NUMBNESS ON FACE/RIGHT HAND/FEET Time Seen by Provider: 06/04/18 14:40 Source of Information: Reports: Patient History Limitations: Reports: No Limitations - History of Present Illness INITIAL COMMENTS - FREE TEXT/NARRATIVE: The patient is a 77-year-old female who comes in with a chief complaint of right face, arm, and leg numbness and right lower extremity weakness. She felt fine when she went to bed last night. She woke up with these symptoms. She states there was no provoking factor. The symptoms have been constant all day. She says that her face, arm, and leg feel like pins and needles like they "fell asleep" and that she has decreased sensation in those areas. She denies history of similar symptoms previously. She also feels like her right leg is heavy and slightly weak. She is able to walk. She doesn't have any weakness in her arms or in her face. No speech abnormality no vision change. No confusion. No additional complaint. She otherwise feels well. No recent trauma. No recent fever. She has a history of an ICD/pacemaker due to prior ventricular fibrillation cardiac arrest in 2013. She does not take blood thinners. Headache Pain Score (Numeric/FACES): 3 - Related Data Allergies Allergy/AdvReac Type Severity Reaction Status Date / Time ciprofloxacin Allergy Hives Verified 06/04/18 14:47 ibuprofen Allergy Hives Verified 06/04/18 14:47 penicillin G Allergy Hives Verified 06/04/18 14:47 Home Meds: Home Meds LORazepam 0.5 - 1 mg PO QID PRN 04/25/14 [History] Metoprolol Succinate [Toprol XL] 50 mg PO DAILY 04/25/14 [History] Pantoprazole [ProTONIX] 40 mg PO DAILY 04/25/14 [History] Pravastatin [Pravachol] 10 mg PO DAILY 04/25/14 [History] Aspirin [Franck Chewable Aspirin] 81 mg PO DAILY 05/23/14 [History] Levothyroxine [Synthroid] 75 mcg PO DAILY 04/26/16 [History] amLODIPine [Norvasc] 2.5 mg PO DAILY 10/18/16 [History] traMADol HCl [Tramadol HCl] 50 mg PO Q6H PRN #30 tablet 10/20/16 [Rx] Acetaminophen [Tylenol Extra Strength] 500 mg PO TID PRN 01/30/17 [History] Lisinopril 10 mg PO DAILY 06/04/18 [History] Past Medical History - Past Health History Medical/Surgical History: Denies Medical/Surgical History HEENT History: Reports: Impaired Vision Other HEENT History: wears eyeglasses Cardiovascular History: Reports: High Cholesterol, Hypertension Other Cardiovascular History: cardiac arrest -shocked 2 times and sent to [place] almost 3 yrs ago Gastrointestinal History: Reports: Colon Polyp, GERD Genitourinary History: Reports: UTI, Recurrent 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: Musculoskeletal History: Reports: Back Pain, Chronic Other Musculoskeletal History: currently has back pain and both of her knees hurt Psychiatric History: Reports: Anxiety Endocrine/Metabolic History: Reports: Hypothyroidism Oncologic (Cancer) History: Reports: Squamous Cell Carcinoma - Infectious Disease History Infectious Disease History: Reports: Measles - Past Surgical History HEENT Surgical History: Reports: Cataract Surgery, Tonsillectomy Cardiovascular Surgical History: Reports: AICD Female Surgical History: Reports: Hysterectomy, Salpingo-Oophorectomy Social & Family History - Family History Family Medical History: Noncontributory Oncologic: Reports: Other (See Below) Other Oncologic Family History: throat - Caffeine Use Caffeine Use: Reports: Coffee - Living Situation & Occupation Living situation: Reports: , with Spouse Occupation: Retired ED ROS GENERAL - Review of Systems Review Of Systems: See Below Constitutional: Denies: Fever HEENT: Reports: No Symptoms Respiratory: Denies: Shortness of Breath Cardiovascular: Denies: Chest Pain Endocrine: Reports: No Symptoms GI/Abdominal: Denies: Abdominal Pain : Reports: No Symptoms Musculoskeletal: Reports: No Symptoms Skin: Reports: No Symptoms Neurological: Reports: Paresthesia, Weakness Psychiatric: Reports: No Symptoms ED EXAM, NEURO - Physical Exam Exam: See Below Exam Limited By: No Limitations General Appearance: Alert, WD/WN, No Apparent Distress Eye Exam: Bilateral Eye: EOMI, PERRL Ears: Normal External Exam Nose: Normal Inspection Throat/Mouth: Normal Inspection, Normal Oropharynx, Normal Voice Head Exam: Atraumatic, Normocephalic Neck: Normal Inspection, Supple Respiratory/Chest: No Respiratory Distress, Lungs Clear, Normal Breath Sounds, Chest Non-Tender Cardiovascular: Normal Peripheral Pulses, Regular Rate, Rhythm, No Murmur GI/Abdominal: Soft, Non-Tender, No Distention Neurological: Alert, Normal Mood/Affect, CN II-XII Intact, Normal Plantar Flexion, Oriented x 3, Other (bilat UE strength normal. sensation grossly intact throughout. LLE strenght normal. RLE strength 4/5, able to lift leg off bed but cannot maintain elevated against gravity) Back Exam: Normal Inspection Extremities: Normal Inspection Psychiatric: Normal Affect, Normal Mood Skin Exam: Warm, Dry, Intact, Normal Color, No Rash Course - Vital Signs Last Recorded V/S: Last Vital Signs Temp 37.2 C 06/04/18 14:44 Pulse 60 06/04/18 14:44 Resp 20 06/04/18 14:44 BP 174/88 H 06/04/18 14:44 Pulse Ox 96 06/04/18 14:44 - Orders/Labs/Meds Orders: Active Orders 24 hr Category Date Time Status EKG 12 Lead [EKG Documentation Completion] [RC] STAT Care 06/04/18 14:48 Active Peripheral IV Care [RC] . DIRECTED Care 06/04/18 14:48 Active Peripheral IV Care [RC] . DIRECTED Care 06/04/18 14:49 Active Ang Head [CT] Stat Exams 06/04/18 15:48 Taken CTA Neck W & W/O Contrast [Ang Neck] [CT] Stat Exams 06/04/18 15:48 Taken Sodium Chloride 0.9% [Normal Saline] 100 ml Med 06/04/18 16:00 Active IV ASDIRECTED Sodium Chloride 0.9% [Saline Flush] Med 06/04/18 14:48 Active 10 ml FLUSH ASDIRECTED PRN Peripheral IV Insertion Adult [OM.PC] Routine Oth 06/04/18 14:48 Ordered Medication Orders Sodium Chloride (Normal Saline) 100 mls @ 60 mls/hr IV ASDIRECTED JAVON Last Admin: 06/04/18 16:37 Dose: 60 mls/hr Sodium Chloride (Saline Flush) 10 ml FLUSH ASDIRECTED PRN PRN Reason: Keep Vein Open Last Admin: 06/04/18 14:53 Dose: 10 ml Labs: Laboratory Tests 06/04/18 06/04/18 06/04/18 Range/Units 14:43 14:45 14:45 WBC 4.18 (3.98-10.04) K/mm3 RBC 4.20 (3.98-5.22) M/mm3 Hgb 13.1 (11.2-15.7) gm/L Hct 37.7 (34.1-44.9) % MCV 89.8 (79.4-94.8) fl MCH 31.2 (25.6-32.2) pg MCHC 34.7 (32.2-35.5) g/dl RDW Std Deviation 38.5 (36.4-46.3) fL Plt Count 171 L (182-369) K/mm3 MPV 9.3 L (9.4-12.3) fl Neut % (Auto) 46.8 (34.0-71.1) % Lymph % (Auto) 36.6 (19.3-51.7) % [place] % (Auto) 13.2 H (4.7-12.5) % Eos % (Auto) 2.9 (0.7-5.8) Baso % (Auto) 0.5 (0.1-1.2) % Neut # (Auto) 1.96 (1.56-6.13) K/mm3 Lymph # (Auto) 1.53 (1.18-3.74) K/mm3 [place] # (Auto) 0.55 H (0.24-0.36) K/mm3 Eos # (Auto) 0.12 (0.04-0.36) K/mm3 Baso # (Auto) 0.02 (0.01-0.08) K/mm3 PT 10.5 (9.5-12.1) SECONDS INR 0.96 Sodium (136-145) mEq/L Potassium (3.5-5.1) mEq/L Chloride (98-107) mEq/L Carbon Dioxide (21-32) mEq/L Anion Gap (5-15) BUN (7-18) mg/dL Creatinine (0.55-1.02) mg/dL Est Cr Clr Drug Dosing mL/min Estimated GFR (MDRD) (>60) mL/min BUN/Creatinine Ratio (14-18) Glucose (83-115) mg/dL POC Glucose 86 (83-110) mg/dL Calcium (8.5-10.1) mg/dL Magnesium (1.8-2.4) mg/dl Total Bilirubin (0.2-1.0) mg/dL AST (15-37) U/L ALT (14-59) U/L Alkaline Phosphatase (46-116) U/L Troponin I (0.00-0.056) ng/mL Total Protein (6.4-8.2) g/dl Albumin (3.4-5.0) g/dl Globulin gm/dL Albumin/Globulin Ratio (1-2) 06/04/18 Range/Units 14:45 WBC (3.98-10.04) K/mm3 RBC (3.98-5.22) M/mm3 Hgb (11.2-15.7) gm/L Hct (34.1-44.9) % MCV (79.4-94.8) fl MCH (25.6-32.2) pg MCHC (32.2-35.5) g/dl RDW Std Deviation (36.4-46.3) fL Plt Count (182-369) K/mm3 MPV (9.4-12.3) fl Neut % (Auto) (34.0-71.1) % Lymph % (Auto) (19.3-51.7) % [place] % (Auto) (4.7-12.5) % Eos % (Auto) (0.7-5.8) Baso % (Auto) (0.1-1.2) % Neut # (Auto) (1.56-6.13) K/mm3 Lymph # (Auto) (1.18-3.74) K/mm3 [place] # (Auto) (0.24-0.36) K/mm3 Eos # (Auto) (0.04-0.36) K/mm3 Baso # (Auto) (0.01-0.08) K/mm3 PT (9.5-12.1) SECONDS INR Sodium 143 (136-145) mEq/L Potassium 3.5 (3.5-5.1) mEq/L Chloride 107 (98-107) mEq/L Carbon Dioxide 29 (21-32) mEq/L Anion Gap 10.5 (5-15) BUN 11 (7-18) mg/dL Creatinine 0.6 (0.55-1.02) mg/dL Est Cr Clr Drug Dosing 73.51 mL/min Estimated GFR (MDRD) > 60 (>60) mL/min BUN/Creatinine Ratio 18.3 H (14-18) Glucose 95 (83-115) mg/dL POC Glucose (83-110) mg/dL Calcium 8.5 (8.5-10.1) mg/dL Magnesium 2.1 (1.8-2.4) mg/dl Total Bilirubin 0.5 (0.2-1.0) mg/dL AST 20 (15-37) U/L ALT 19 (14-59) U/L Alkaline Phosphatase 73 (46-116) U/L Troponin I < 0.017 (0.00-0.056) ng/mL Total Protein 6.6 (6.4-8.2) g/dl Albumin 3.5 (3.4-5.0) g/dl Globulin 3.1 gm/dL Albumin/Globulin Ratio 1.1 (1-2) Meds: Medications Generic Name Dose Route Start Last Admin Trade Name Freq PRN Reason Stop Dose Admin Sodium Chloride 100 mls @ 60 mls/hr 06/04/18 16:00 06/04/18 16:37 Normal Saline IV 60 mls/hr ASDIRECTED JAVON Administration Sodium Chloride 10 ml 06/04/18 14:48 06/04/18 14:53 Saline Flush FLUSH 10 ml ASDIRECTED PRN Administration Keep Vein Open Discontinued Medications Generic Name Dose Route Start Last Admin Trade Name Freq PRN Reason Stop Dose Admin Aspirin 324 mg 06/04/18 15:49 06/04/18 15:57 Aspirin PO 06/04/18 15:50 324 mg ONETIME ONE Administration Iopamidol 100 ml 06/04/18 15:57 06/04/18 16:36 Isovue-370 (76%) IVPUSH 06/04/18 15:58 100 ml ONETIME ONE Administration Sodium Chloride 10 ml 06/04/18 15:57 06/04/18 16:36 Saline Flush FLUSH 06/04/18 15:58 10 ml ONETIME ONE Administration - Re-Assessments/Exams Free Text/Narrative Re-Assessment/Exam: 06/04/18 15:43 NIH Stroke Scale = 3 (points for abnormal sensation and for RLE weakness). CT head shows small possible cerebellar abnormality, ischemia vs. demyelination. A lesion there doesn't fit with her acute symptoms. She has AICD/pacemaker due to history of v fib cardiac arrest so is not a candidate for MRI. I called [place] neurologist front end developer javascript html css 06/04/18 15:[address] Alex at [facility] (neurologist front end developer javascript html css) who recommended CTA to rule out large vessel occlusion, start full dose aspirin, and echo when possible. If no large vessel occlusion, we should be able to admit her here for further care. 06/04/18 15:59 EKG shows normal sinus rhythm, mildly prolonged TX interval at 247, intervals otherwise normal, no significant ST/T abnormality. 06/04/18 18:20 CTA head and neck negative for acute abnormality. She continues to have R sided paresthesias and very mild RLE weakness. She is able to ambulate with a walker, normally walks without assistance. Given age and new extremity weakness, I think she'd benefit for admission for possible further workup to eval CVA risk factors and also PT/OT assistance. Discussed with patient and son, they are willing to stay. Discussed with Dr. Baker who will eval patient for admission. Departure - Departure Time of Disposition: 18:22 Disposition: Admitted As Inpatient 66 Clinical Impression: Right leg weakness, Paresthesias - Discharge Information Referrals: Jenny Waddell, WAX ROOM SUPERVISOR [Primary Care Provider] - Forms: ED Department Discharge - My Orders Last 24 Hours: My Active Orders 06/04/18 14:48 EKG 12 Lead [EKG Documentation Completion] [RC] STAT Peripheral IV Care [RC] . DIRECTED Sodium Chloride 0.9% [Saline Flush] 10 ml FLUSH ASDIRECTED PRN Peripheral IV Insertion Adult [OM.PC] Routine 06/04/18 14:49 Peripheral IV Care [RC] . DIRECTED 06/04/18 15:48 Ang Head [CT] Stat CTA Neck W & W/O Contrast [Ang Neck] [CT] Stat 06/04/18 16:00 Sodium Chloride 0.9% [Normal Saline] 100 ml IV ASDIRECTED - Assessment/Plan Last 24 Hours: My Active Orders 06/04/18 14:48 EKG 12 Lead [EKG Documentation Completion] [RC] STAT Peripheral IV Care [RC] . DIRECTED Sodium Chloride 0.9% [Saline Flush] 10 ml FLUSH ASDIRECTED PRN Peripheral IV Insertion Adult [OM.PC] Routine 06/04/18 14:49 Peripheral IV Care [RC] . DIRECTED 06/04/18 15:48 Ang Head [CT] Stat CTA Neck W & W/O Contrast [Ang Neck] [CT] Stat 06/04/18 16:00 Sodium Chloride 0.9% [Normal Saline] 100 ml IV ASDIRECTED
--- NOTE | 2018-06-04 15:17 | CR ---
Portable view of the chest was obtained. Comparison: Prior chest x-ray of 10/18/16. Heart is enlarged. Tortuous thoracic aorta is seen. AICD is noted. Multiple overlying monitor leads are seen. Lungs are clear with no acute parenchymal change. Slight scoliosis is noted within the spine. Impression: 1. Cardiomegaly and other incidental findings. Nothing acute is appreciated. Diagnostic code #2
--- NOTE | 2018-06-04 15:17 | CT ---
Head CT Technique: Multiple axial sections through the brain were obtained. Intravenous contrast was not utilized. Comparison: Previous head CT exam of 10/18/16. Findings: Ventricles along with basal cisterns and sulci over the convexities are mildly prominent. Minimal diminished density is noted within the periventricular white matter compatible with slight small vessel ischemic demyelination change. Questionable small low-density findings within the right cerebellar hemisphere with differential including early infarct versus small vessel ischemic demyelination change. Minimal basal ganglia calcification is noted. No other abnormal parenchymal densities are seen. No evidence of intracranial hemorrhage. No midline shift or mass effect is seen. Bone window settings were reviewed which show the visualized sinuses do appear clear. No acute calvarial abnormality is appreciated. Impression: 1. Small low density finding within the right cerebellar hemisphere either due to early infarct or small vessel ischemic demyelination change. MRI would be needed to differentiate. 2. Mild senescent change as noted above. Diagnostic code #3
[2018-06-04] MEDS ORDERED: Aspirin 81 MG Tab.Chew PO ONE (15:49)
[2018-06-04] MEDS ORDERED: Iopamidol 755 Mg/ML 100 ML Bottle IVPUSH ONE (15:57)
[2018-06-04] MEDS ORDERED: Sodium Chloride 0.9% 10 ML Syringe FLUSH ONE (15:57)
[2018-06-04] MEDS ORDERED: Sodium Chloride 0.9% 100 ML IV SCH (16:00)
--- NOTE | 2018-06-04 19:39 | PCM.HP ---
H&P History of Present Illness - General Date of Service: 06/04/18 Admit Problem/Dx: Admission Diagnosis/Problem Admission Diagnosis/Problem CVA, Cerebrovascular accident Source of Information: Patient, Family, Provider History Limitations: Reports: No Limitations - History of Present Illness Initial Comments - Free Text/Narative: 77 year old female awoke with right sided weakness. Additionally she noted numbness. The patient has also noted difficulty walking. There is no past history of a CVA. An CT of the head was obtained that was not specific. An MRI can not be performed because she has a AICD. Repeat imaging will be per CVA protocol in 48 hours. She denied a change in vision, headache, LOC, or a change in speech. Onset of Symptoms: Reports: Sudden Symptom Onset Date: 06/04/18 Duration of Symptoms: Reports: Hour(s): Location: Reports: Face, Upper Extremity, Right, Lower Extremity, Right Severity: Moderate Improves with: Reports: None Worsens with: Reports: None Associated Symptoms: Reports: Weakness Headache Pain Score (Numeric/FACES): 3 - Related Data Allergies/Adverse Reactions: Allergies Allergy/AdvReac Type Severity Reaction Status Date / Time ciprofloxacin Allergy Hives Verified 06/04/18 20:16 ibuprofen Allergy Hives Verified 06/04/18 20:16 penicillin G Allergy Hives Verified 06/04/18 20:16 Home Medications: Home Meds RX: LORazepam 0.5 - 1 mg PO QID PRN 04/25/14 [History] RX: Metoprolol Succinate [Toprol XL] 50 mg PO DAILY 04/25/14 [History] RX: Pantoprazole [ProTONIX] 40 mg PO DAILY 04/25/14 [History] RX: Pravastatin [Pravachol] 10 mg PO DAILY 04/25/14 [History] RX: Aspirin [Franck Chewable Aspirin] 81 mg PO DAILY 05/23/14 [History] RX: Levothyroxine [Synthroid] 75 mcg PO DAILY 04/26/16 [History] RX: amLODIPine [Norvasc] 2.5 mg PO DAILY 10/18/16 [History] RX: traMADol HCl [Tramadol HCl] 50 mg PO Q6H PRN #30 tablet 10/20/16 [Rx] RX: Acetaminophen [Tylenol Extra Strength] 500 mg PO TID PRN 01/30/17 [History] RX: Lisinopril 10 mg PO DAILY 06/04/18 [History] RX: Aspirin [Ecotrin] 325 mg PO DAILY 30 Days #30 tab.ec 06/06/18 [Rx] RX: Cholecalciferol (Vitamin D3) [Vitamin D3] 1,000 units PO DAILY 30 Days #30 tablet 06/06/18 [Rx] RX: Folic Acid 1 mg PO DAILY 30 Days #30 tablet 06/06/18 [Rx] Past Medical History - Past Health History Medical/Surgical History: Denies Medical/Surgical History HEENT History: Reports: Impaired Vision Other HEENT History: wears eyeglasses Cardiovascular History: Reports: High Cholesterol, Hypertension Other Cardiovascular History: cardiac arrest -shocked 2 times and sent to [place] almost 3 yrs ago Gastrointestinal History: Reports: Colon Polyp, GERD Genitourinary History: Reports: UTI, Recurrent 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: Musculoskeletal History: Reports: Back Pain, Chronic Other Musculoskeletal History: currently has back pain and both of her knees hurt Psychiatric History: Reports: Anxiety Endocrine/Metabolic History: Reports: Hypothyroidism Oncologic (Cancer) History: Reports: Squamous Cell Carcinoma - Infectious Disease History Infectious Disease History: Reports: Measles - Past Surgical History HEENT Surgical History: Reports: Cataract Surgery, Tonsillectomy Cardiovascular Surgical History: Reports: AICD Female Surgical History: Reports: Hysterectomy, Salpingo-Oophorectomy Social & Family History - Family History Family Medical History: Noncontributory Oncologic: Reports: Other (See Below) Other Oncologic Family History: throat - Tobacco Use Smoking Status *Q: Unknown Ever Smoked - Caffeine Use Caffeine Use: Reports: Coffee - Recreational Drug Use Recreational Drug Use: No - Living Situation & Occupation Living situation: Reports: , with Spouse Occupation: Retired H&P Review of Systems - Review of Systems: Review Of Systems: ROS reveals no pertinent complaints other than HPI. Exam - Exam Exam: See Below - Vital Signs Vital Signs: Last Vital Signs Temp 37.2 C 06/04/18 14:44 Pulse 60 06/04/18 14:44 Resp 20 06/04/18 14:44 BP 174/88 H 06/04/18 14:44 Pulse Ox 96 06/04/18 14:44 Weight: 79.379 kg - Exam Quality Assessment: DVT Prophylaxis General: Alert, Oriented, Cooperative HEENT: EOMI, Hearing Intact, Nares Patent, Normal Nasal Septum, Pupils Equal, Pupils Reactive, PERRLA Neck: Trachea Midline Lungs: Normal Respiratory Effort Cardiovascular: Regular Rate, Regular Rhythm GI/Abdominal Exam: Normal Bowel Sounds, Soft, Non-Tender, No Organomegaly, No Distention (Female) Exam: Deferred Rectal (Female) Exam: Deferred Back Exam: Normal Inspection Extremities: Normal Inspection, Normal Capillary Refill Skin: Warm, Dry Neurological: Cranial Nerves Intact, Strength Equal Bilateral Neuro Extensive - Mental Status: Alert, Oriented x3, Normal Mood/Affect, Normal Cognition, Memory Intact Neuro Extensive - Motor, Sensory, Reflexes: CN II-XII Intact, Other (R UE/LE decreased motor strength 4/5) Psychiatric: Alert, Normal Affect, Normal Mood - Patient Data Lab Results Last 24 hrs: Laboratory Results - last 24 hr 06/04/18 06/04/18 06/04/18 Range/Units 14:43 14:45 14:45 WBC 4.18 (3.98-10.04) K/mm3 RBC 4.20 (3.98-5.22) M/mm3 Hgb 13.1 (11.2-15.7) gm/L Hct 37.7 (34.1-44.9) % MCV 89.8 (79.4-94.8) fl MCH 31.2 (25.6-32.2) pg MCHC 34.7 (32.2-35.5) g/dl RDW Std Deviation 38.5 (36.4-46.3) fL Plt Count 171 L (182-369) K/mm3 MPV 9.3 L (9.4-12.3) fl Neut % (Auto) 46.8 (34.0-71.1) % Lymph % (Auto) 36.6 (19.3-51.7) % Grand % (Auto) 13.2 H (4.7-12.5) % Eos % (Auto) 2.9 (0.7-5.8) Baso % (Auto) 0.5 (0.1-1.2) % Neut # (Auto) 1.96 (1.56-6.13) K/mm3 Lymph # (Auto) 1.53 (1.18-3.74) K/mm3 Grand # (Auto) 0.55 H (0.24-0.36) K/mm3 Eos # (Auto) 0.12 (0.04-0.36) K/mm3 Baso # (Auto) 0.02 (0.01-0.08) K/mm3 PT 10.5 (9.5-12.1) SECONDS INR 0.96 Sodium (136-145) mEq/L Potassium (3.5-5.1) mEq/L Chloride (98-107) mEq/L Carbon Dioxide (21-32) mEq/L Anion Gap (5-15) BUN (7-18) mg/dL Creatinine (0.55-1.02) mg/dL Est Cr Clr Drug Dosing mL/min Estimated GFR (MDRD) (>60) mL/min BUN/Creatinine Ratio (14-18) Glucose (83-115) mg/dL POC Glucose 86 (83-110) mg/dL Calcium (8.5-10.1) mg/dL Magnesium (1.8-2.4) mg/dl Total Bilirubin (0.2-1.0) mg/dL AST (15-37) U/L ALT (14-59) U/L Alkaline Phosphatase (46-116) U/L Troponin I (0.00-0.056) ng/mL Total Protein (6.4-8.2) g/dl Albumin (3.4-5.0) g/dl Globulin gm/dL Albumin/Globulin Ratio (1-2) 06/04/18 Range/Units 14:45 WBC (3.98-10.04) K/mm3 RBC (3.98-5.22) M/mm3 Hgb (11.2-15.7) gm/L Hct (34.1-44.9) % MCV (79.4-94.8) fl MCH (25.6-32.2) pg MCHC (32.2-35.5) g/dl RDW Std Deviation (36.4-46.3) fL Plt Count (182-369) K/mm3 MPV (9.4-12.3) fl Neut % (Auto) (34.0-71.1) % Lymph % (Auto) (19.3-51.7) % Grand % (Auto) (4.7-12.5) % Eos % (Auto) (0.7-5.8) Baso % (Auto) (0.1-1.2) % Neut # (Auto) (1.56-6.13) K/mm3 Lymph # (Auto) (1.18-3.74) K/mm3 Grand # (Auto) (0.24-0.36) K/mm3 Eos # (Auto) (0.04-0.36) K/mm3 Baso # (Auto) (0.01-0.08) K/mm3 PT (9.5-12.1) SECONDS INR Sodium 143 (136-145) mEq/L Potassium 3.5 (3.5-5.1) mEq/L Chloride 107 (98-107) mEq/L Carbon Dioxide 29 (21-32) mEq/L Anion Gap 10.5 (5-15) BUN 11 (7-18) mg/dL Creatinine 0.6 (0.55-1.02) mg/dL Est Cr Clr Drug Dosing 73.51 mL/min Estimated GFR (MDRD) > 60 (>60) mL/min BUN/Creatinine Ratio 18.3 H (14-18) Glucose 95 (83-115) mg/dL POC Glucose (83-110) mg/dL Calcium 8.5 (8.5-10.1) mg/dL Magnesium 2.1 (1.8-2.4) mg/dl Total Bilirubin 0.5 (0.2-1.0) mg/dL AST 20 (15-37) U/L ALT 19 (14-59) U/L Alkaline Phosphatase 73 (46-116) U/L Troponin I < 0.017 (0.00-0.056) ng/mL Total Protein 6.6 (6.4-8.2) g/dl Albumin 3.5 (3.4-5.0) g/dl Globulin 3.1 gm/dL Albumin/Globulin Ratio 1.1 (1-2) Result Diagrams: 06/07/18 06:25 06/07/18 06:25 - Problem List (1) Hyperlipidemia SNOMED Code(s): 45548852 ICD Code: E78.5 - HYPERLIPIDEMIA, UNSPECIFIED Status: Acute (2) CVA (cerebral vascular accident) SNOMED Code(s): 264528005 ICD Code: I63.9 - CEREBRAL INFARCTION, UNSPECIFIED Status: Acute Priority : High Qualifiers: CVA mechanism: unspecified Qualified Code(s): I63.9 - Cerebral infarction, unspecified (3) Paresthesias SNOMED Code(s): 05796437 ICD Code: R20.2 - PARESTHESIA OF SKIN Status: Acute (4) Right leg weakness SNOMED Code(s): 457461151 ICD Code: R29.898 - OTH SYMPTOMS AND SIGNS INVOLVING THE MUSCULOSKELETAL SYSTEM Status: Acute (5) Anxiety SNOMED Code(s): 59528353 ICD Code: F41.9 - ANXIETY DISORDER, UNSPECIFIED Status: Acute (6) Hypertension SNOMED Code(s): 55765206 ICD Code: I10 - ESSENTIAL (PRIMARY) HYPERTENSION Status: Acute Qualifiers: Hypertension type: essential hypertension Qualified Code(s): I10 - Essential (primary) hypertension (7) Ventricular fibrillation, vfib SNOMED Code(s): 29047672 ICD Code: I49.01 - VENTRICULAR FIBRILLATION Status: Acute Onset Date: Problem List Initiated/Reviewed/Updated: Yes Orders Last 24hrs: Active Orders 24 hr Category Date Time Status Admission Status [Patient Status] [ADT] Routine ADT 06/04/18 18:32 Active EKG 12 Lead [EKG Documentation Completion] [RC] STAT Care 06/04/18 14:48 Active Peripheral IV Care [RC] . DIRECTED Care 06/04/18 14:48 Active Peripheral IV Care [RC] . DIRECTED Care 06/04/18 14:49 Active Ang Head [CT] Stat Exams 06/04/18 15:48 Taken CTA Neck W & W/O Contrast [Ang Neck] [CT] Stat Exams 06/04/18 15:48 Taken Sodium Chloride 0.9% [Normal Saline] 100 ml Med 06/04/18 16:00 Active IV ASDIRECTED Sodium Chloride 0.9% [Saline Flush] Med 06/04/18 14:48 Active 10 ml FLUSH ASDIRECTED PRN Peripheral IV Insertion Adult [OM.PC] Routine Oth 06/04/18 14:48 Ordered Medication Orders Sodium Chloride (Normal Saline) 100 mls @ 60 mls/hr IV ASDIRECTED JAVON Last Admin: 06/04/18 16:37 Dose: 60 mls/hr Sodium Chloride (Saline Flush) 10 ml FLUSH ASDIRECTED PRN PRN Reason: Keep Vein Open Last Admin: 06/04/18 14:53 Dose: 10 ml Assessment/Plan Comment:: Impression: CVA/TIA unable to get an MRI w/ AICD HTN--liberal mgt with CVA/TIA HLD--review meds and lipid profile Chronic S/p V Fib arrest, s/p AICD Plan: CVA protocol Swallow eval CM/PT/OT consults Daily labs Home meds DVT/GI prophylaxis
[2018-06-04] MEDS ORDERED: traMADol 50 MG Tab PO PRN (19:40)
[2018-06-04] MEDS ORDERED: hydrALAZINE 20 MG/ML SDV IVPUSH PRN (20:04)
[2018-06-04] MEDS: Enoxaparin 40 MG/0.4 ML Syringe SUBCUT SCH (20:36)
[2018-06-05] MEDS: LORazepam 0.5 MG Tab PO PRN ×3 (03:50→20:08)
[2018-06-05] MEDS: Levothyroxine 75 MCG Tab PO SCH (05:48)
[2018-06-05] MEDS ORDERED: Ondansetron 4 MG Tab.DIS PO PRN (06:25)
[2018-06-05] MEDS ORDERED: Ondansetron 4 MG/2 ML SDV IV PRN (06:25)
--- NOTE | 2018-06-05 06:28 | CT ---
CT angiogram of brain Technique: Multiple axial sections through the brain were obtained. Intravenous contrast was utilized. Study has been performed as a CT angiogram protocol. Findings: Left posterior cerebral artery shows approximately 50% stenosis at its origin. Atherosclerotic irregularity is felt to be present within portions of the left posterior cerebral artery. Both distal vertebral arteries are patent. Basilar artery is normal. Right posterior cerebral artery is normal. Middle cerebral arteries and anterior cerebral arteries appear patent. No other definite findings of stenosis are seen. Impression: 1. Findings felt compatible with approximately 50% of stenosis at the origin left posterior cerebral artery. 2. Atherosclerotic irregularity felt to be present within the left posterior cerebral artery. These findings could be confirmed by MR angiogram if needed. 3. No other discrete abnormality on CT angiogram of brain. Diagnostic code #3 I mostly agree with preliminary report from [facility] (additional finding as noted above), finalized on 06/04/18, 6:37 PM Central Time, code #2
--- NOTE | 2018-06-05 06:28 | CT ---
CT angiogram of neck Technique: Multiple axial sections through the neck were obtained. Study obtained as an angiogram protocol and multiple MIP images were obtained. Findings: Both common carotid arteries are patent. There is mild atherosclerotic plaque which is calcified within both carotid bulbs. No hemodynamic significant stenosis seen within the common carotid or internal carotid arteries as well as proximal external carotid arteries. Both vertebral arteries are patent. No focal stenosis or occlusion is seen. Impression: 1. Slight atherosclerotic calcification within both carotid bulbs. 2. No focal stenosis or occlusion is seen. No dissection is seen. Diagnostic code #2 I agree with preliminary report from [facility], finalized on 06/04/18, 6:37 PM Central Time
[2018-06-05] MEDS ORDERED: Potassium Chloride 10 MEQ in Premix Bag 1 BAG IV SCH (07:30)
[2018-06-05] MEDS ORDERED: Metoprolol Succinate 50 MG Tab.ER PO SCH (09:00)
[2018-06-05] MEDS: Metoprolol Succinate 25 MG Tab.ER PO SCH (09:12)
[2018-06-05] MEDS: Potassium Chloride 20 MEQ Tab.ER PO SCH ×3 (09:12→14:49)
[2018-06-05] MEDS: Aspirin 325 MG Tab.EC PO SCH (09:12)
[2018-06-05 11:36] LABS: VITAMIN D,25-HYDROXY 8.2 ng/ml (30.0-100.0)
--- NOTE | 2018-06-05 12:24 | US ---
Carotid ultrasound: Multiple real-time images were obtained. Plaque: Mild to moderate amount of plaque seen within the carotid bulbs and origin of the left external carotid artery and origin of both internal carotid arteries. Comparison: Previous CT angiogram of neck dated 06/04/18. Findings: Velocity measurements: Right side: CCA has a peak systolic velocity of 0.65 m/s. ICA has a peak systolic velocity of 0.49 m/s and peak end-diastolic velocity of 0.18 m/s. ECA has a peak systolic velocity of 0.82 m/s. Vertebral artery has a peak systolic velocity of 0.55 m/s. ICA/CCA ratio is 0.75. Left side: CCA has a peak systolic velocity of 0.78 m/s. ICA has a peak systolic velocity of 0.73 m/s and peak end-diastolic velocity of 0.24 m/s. ECA has a peak systolic velocity of 1.40 m/s. Vertebral artery has a peak systolic velocity of 0.72 m/s. ICA/CCA ratio is 0.93. Impression: 1. Mild to moderate amount of scattered plaque. Velocity measurements within both internal carotid arteries correspond to stenosis in the range 1-49%. Diagnostic code #3
--- NOTE | 2018-06-05 13:07 | PCM.PN ---
- General Info Date of Service: 06/05/18 Admission Dx/Problem (Free Text): Admission Diagnosis/Problem Admission Diagnosis/Problem CVA, Cerebrovascular accident Subjective Update: In to see Shae. She is sitting up in bed visiting with family while nursing is checking on her. She states she is feeling much better today, has gotten most of her strength back, but is still having some numbness/tingling in the right hand. No other complaints at this time. No concerns from nursing. She is ambulating with walker and assistance. Her potassium was low this AM and has been replaced. ECHO pending. Repeat Head CT tomorrow. Continue to hold Norvasc and Lisinopril. Vit D and Folate low, will replenish. Functional Status: Reports: Pain Controlled, Tolerating Diet, Ambulating, Urinating - Review of Systems General: Reports: No Symptoms. Denies: Fever, Chills HEENT: Reports: No Symptoms Pulmonary: Reports: No Symptoms. Denies: Shortness of Breath, Cough Cardiovascular: Reports: No Symptoms. Denies: Chest Pain Gastrointestinal: Reports: No Symptoms. Denies: Abdominal Pain, Diarrhea, Nausea, Vomiting Genitourinary: Reports: No Symptoms Musculoskeletal: Reports: No Symptoms Skin: Reports: No Symptoms Neurological: Reports: Numbness (R hand), Tingling (R hand). Denies: Confusion , Trouble Speaking, Weakness, Change in Speech Psychiatric: Reports: No Symptoms. Denies: Confusion - Patient Data Vitals - Most Recent: Last Vital Signs Temp 98.8 F 06/05/18 12:17 Pulse 62 06/05/18 12:17 Resp 16 06/05/18 12:17 BP 159/83 H 06/05/18 12:17 Pulse Ox 95 06/05/18 12:17 Weight - Most Recent: 164 lb 4.8 oz I&O - Last 24 Hours: Intake & Output 06/04/18 06/05/18 06/05/18 22:59 06:59 14:59 Intake Total 970 360 Output Total 1300 Balance -330 360 Lab Results Last 24 Hours: Laboratory Results - last 24 hr 06/04/18 06/04/18 06/04/18 Range/Units 14:43 14:45 14:45 WBC 4.18 (3.98-10.04) K/mm3 RBC 4.20 (3.98-5.22) M/mm3 Hgb 13.1 (11.2-15.7) gm/L Hct 37.7 (34.1-44.9) % MCV 89.8 (79.4-94.8) fl MCH 31.2 (25.6-32.2) pg MCHC 34.7 (32.2-35.5) g/dl RDW Std Deviation 38.5 (36.4-46.3) fL Plt Count 171 L (182-369) K/mm3 MPV 9.3 L (9.4-12.3) fl Neut % (Auto) 46.8 (34.0-71.1) % Lymph % (Auto) 36.6 (19.3-51.7) % [place] % (Auto) 13.2 H (4.7-12.5) % Eos % (Auto) 2.9 (0.7-5.8) Baso % (Auto) 0.5 (0.1-1.2) % Neut # (Auto) 1.96 (1.56-6.13) K/mm3 Lymph # (Auto) 1.53 (1.18-3.74) K/mm3 [place] # (Auto) 0.55 H (0.24-0.36) K/mm3 Eos # (Auto) 0.12 (0.04-0.36) K/mm3 Baso # (Auto) 0.02 (0.01-0.08) K/mm3 PT 10.5 (9.5-12.1) SECONDS INR 0.96 Sodium (136-145) mEq/L Potassium (3.5-5.1) mEq/L Chloride (98-107) mEq/L Carbon Dioxide (21-32) mEq/L Anion Gap (5-15) BUN (7-18) mg/dL Creatinine (0.55-1.02) mg/dL Est Cr Clr Drug Dosing mL/min Estimated GFR (MDRD) (>60) mL/min BUN/Creatinine Ratio (14-18) Glucose (83-115) mg/dL POC Glucose 86 (83-110) mg/dL Calcium (8.5-10.1) mg/dL Magnesium (1.8-2.4) mg/dl Total Bilirubin (0.2-1.0) mg/dL AST (15-37) U/L ALT (14-59) U/L Alkaline Phosphatase (46-116) U/L Troponin I (0.00-0.056) ng/mL C-Reactive Protein (<1.0) mg/dL Total Protein (6.4-8.2) g/dl Albumin (3.4-5.0) g/dl Globulin gm/dL Albumin/Globulin Ratio (1-2) Triglycerides (<150) mg/dL Cholesterol (<200) mg/dL LDL Cholesterol Direct (<100) mg/dL HDL Cholesterol (40-59) mg/dL Vitamin D 25-Hydroxy (30.0-100.0) ng/ml Folate (8.6-58.9) ng/mL TSH 3rd Generation (0.358-3.74) uIU/mL 06/04/18 06/05/18 06/05/18 Range/Units 14:45 05:47 05:47 WBC (3.98-10.04) K/mm3 RBC (3.98-5.22) M/mm3 Hgb (11.2-15.7) gm/L Hct (34.1-44.9) % MCV (79.4-94.8) fl MCH (25.6-32.2) pg MCHC (32.2-35.5) g/dl RDW Std Deviation (36.4-46.3) fL Plt Count (182-369) K/mm3 MPV (9.4-12.3) fl Neut % (Auto) (34.0-71.1) % Lymph % (Auto) (19.3-51.7) % [place] % (Auto) (4.7-12.5) % Eos % (Auto) (0.7-5.8) Baso % (Auto) (0.1-1.2) % Neut # (Auto) (1.56-6.13) K/mm3 Lymph # (Auto) (1.18-3.74) K/mm3 [place] # (Auto) (0.24-0.36) K/mm3 Eos # (Auto) (0.04-0.36) K/mm3 Baso # (Auto) (0.01-0.08) K/mm3 PT (9.5-12.1) SECONDS INR Sodium 143 140 (136-145) mEq/L Potassium 3.5 3.2 L (3.5-5.1) mEq/L Chloride 107 105 (98-107) mEq/L Carbon Dioxide 29 27 (21-32) mEq/L Anion Gap 10.5 11.2 (5-15) BUN 11 8 (7-18) mg/dL Creatinine 0.6 0.5 L (0.55-1.02) mg/dL Est Cr Clr Drug Dosing 73.51 95.05 mL/min Estimated GFR (MDRD) > 60 > 60 (>60) mL/min BUN/Creatinine Ratio 18.3 H 16.0 (14-18) Glucose 95 101 (83-115) mg/dL POC Glucose (83-110) mg/dL Calcium 8.5 8.7 (8.5-10.1) mg/dL Magnesium 2.1 2.2 (1.8-2.4) mg/dl Total Bilirubin 0.5 (0.2-1.0) mg/dL AST 20 (15-37) U/L ALT 19 (14-59) U/L Alkaline Phosphatase 73 (46-116) U/L Troponin I < 0.017 < 0.017 (0.00-0.056) ng/mL C-Reactive Protein < 0.2 (<1.0) mg/dL Total Protein 6.6 (6.4-8.2) g/dl Albumin 3.5 (3.4-5.0) g/dl Globulin 3.1 gm/dL Albumin/Globulin Ratio 1.1 (1-2) Triglycerides 69 (<150) mg/dL Cholesterol 164 (<200) mg/dL LDL Cholesterol Direct 100 (<100) mg/dL HDL Cholesterol 60.0 H (40-59) mg/dL Vitamin D 25-Hydroxy 8.2 L (30.0-100.0) ng/ml Folate 4.8 L (8.6-58.9) ng/mL TSH 3rd Generation 2.213 (0.358-3.74) uIU/mL 06/05/18 Range/Units 05:47 WBC 4.11 (3.98-10.04) K/mm3 RBC 4.19 (3.98-5.22) M/mm3 Hgb 12.7 (11.2-15.7) gm/L Hct 37.7 (34.1-44.9) % MCV 90.0 (79.4-94.8) fl MCH 30.3 (25.6-32.2) pg MCHC 33.7 (32.2-35.5) g/dl RDW Std Deviation 38.8 (36.4-46.3) fL Plt Count 169 L (182-369) K/mm3 MPV 9.9 (9.4-12.3) fl Neut % (Auto) 51.6 (34.0-71.1) % Lymph % (Auto) 34.5 (19.3-51.7) % [place] % (Auto) 10.5 (4.7-12.5) % Eos % (Auto) 2.7 (0.7-5.8) Baso % (Auto) 0.7 (0.1-1.2) % Neut # (Auto) 2.12 (1.56-6.13) K/mm3 Lymph # (Auto) 1.42 (1.18-3.74) K/mm3 [place] # (Auto) 0.43 H (0.24-0.36) K/mm3 Eos # (Auto) 0.11 (0.04-0.36) K/mm3 Baso # (Auto) 0.03 (0.01-0.08) K/mm3 PT (9.5-12.1) SECONDS INR Sodium (136-145) mEq/L Potassium (3.5-5.1) mEq/L Chloride (98-107) mEq/L Carbon Dioxide (21-32) mEq/L Anion Gap (5-15) BUN (7-18) mg/dL Creatinine (0.55-1.02) mg/dL Est Cr Clr Drug Dosing mL/min Estimated GFR (MDRD) (>60) mL/min BUN/Creatinine Ratio (14-18) Glucose (83-115) mg/dL POC Glucose (83-110) mg/dL Calcium (8.5-10.1) mg/dL Magnesium (1.8-2.4) mg/dl Total Bilirubin (0.2-1.0) mg/dL AST (15-37) U/L ALT (14-59) U/L Alkaline Phosphatase (46-116) U/L Troponin I (0.00-0.056) ng/mL C-Reactive Protein (<1.0) mg/dL Total Protein (6.4-8.2) g/dl Albumin (3.4-5.0) g/dl Globulin gm/dL Albumin/Globulin Ratio (1-2) Triglycerides (<150) mg/dL Cholesterol (<200) mg/dL LDL Cholesterol Direct (<100) mg/dL HDL Cholesterol (40-59) mg/dL Vitamin D 25-Hydroxy (30.0-100.0) ng/ml Folate (8.6-58.9) ng/mL TSH 3rd Generation (0.358-3.74) uIU/mL Med Orders - Current: Current Medications Aspirin (Ecotrin) 325 mg PO DAILY [facility] Last Admin: 06/05/18 09:12 Dose: 325 mg Enoxaparin Sodium (Lovenox) 40 mg SUBCUT Q24H [facility] Last Admin: 06/04/18 20:36 Dose: 40 mg Hydralazine HCl (Apresoline) 10 mg IVPUSH Q8H PRN PRN Reason: Hypertension Sodium Chloride (Normal Saline) 100 mls @ 60 mls/hr IV ASDIRECTED [facility] Last Admin: 06/04/18 16:37 Dose: 60 mls/hr Levothyroxine Sodium (Levothyroxine) 75 mcg PO ACBRK [facility] Last Admin: 06/05/18 05:48 Dose: 75 mcg Lorazepam (Ativan) 0.5 mg PO QID PRN PRN Reason: Anxiety Last Admin: 06/05/18 11:58 Dose: 0.5 mg Metoprolol Succinate (Toprol Xl) 25 mg PO DAILY [facility] Last Admin: 06/05/18 09:12 Dose: 25 mg Ondansetron HCl (Zofran Odt) 4 mg PO Q4H PRN PRN Reason: nausea, able to take PO Ondansetron HCl (Zofran) 4 mg IV Q4H PRN PRN Reason: Nausea/Vomiting Potassium Chloride (Klor-Con M20) 40 meq PO Q4H [facility] Stop: 06/05/18 15:46 Last Admin: 06/05/18 11:58 Dose: 40 meq Simvastatin (Zocor) 5 mg PO BEDTIME [facility] Sodium Chloride (Saline Flush) 10 ml FLUSH ASDIRECTED PRN PRN Reason: Keep Vein Open Last Admin: 06/04/18 14:53 Dose: 10 ml Tramadol HCl (Ultram) 50 mg PO Q6H PRN PRN Reason: Other Discontinued Medications Aspirin (Aspirin) 324 mg PO ONETIME ONE Stop: 06/04/18 15:50 Last Admin: 06/04/18 15:57 Dose: 324 mg Potassium Chloride 10 meq/ (Premix) 100 mls @ 100 mls/hr IV Q1H [facility] Stop: 06/05/18 13:29 Iopamidol (Isovue-370 (76%)) 100 ml IVPUSH ONETIME ONE Stop: 06/04/18 15:58 Last Admin: 06/04/18 16:36 Dose: 100 ml Metoprolol Succinate (Toprol Xl) 50 mg PO DAILY [facility] Sodium Chloride (Saline Flush) 10 ml FLUSH ONETIME ONE Stop: 06/04/18 15:58 Last Admin: 06/04/18 16:36 Dose: 10 ml - Exam Quality Assessment: DVT Prophylaxis General: Alert, Oriented, Cooperative, No Acute Distress HEENT: Pupils Equal, Pupils Reactive, EOMI, Mucous Membr. Moist/[place] Neck: Supple Lungs: Clear to Auscultation, Normal Respiratory Effort Cardiovascular: Regular Rate, Regular Rhythm GI/Abdominal Exam: Normal Bowel Sounds, Soft, Non-Tender, No Organomegaly, No Distention, No Abnormal Bruit, No Mass, Pelvis Stable (Female) Exam: Deferred Back Exam: Normal Inspection Extremities: Normal Inspection, Normal Range of Motion, Non-Tender, No Pedal Edema, Normal Capillary Refill Peripheral Pulses: 2+: Posterior Tibial (L), Posterior Tibial (R), Dorsalis Pedis (L), Dorsalis Pedis (R) Skin: Warm, Dry, Intact Neurological: No New Focal Deficit, Normal Speech, Strength Equal Bilateral, Sensation Intact, Cranial Nerves Intact (grossly) Psy/Mental Status: Alert, Normal Affect, Normal Mood - Problem List & Annotations (1) CVA (cerebral vascular accident) SNOMED Code(s): 043662284 Code(s): I63.9 - CEREBRAL INFARCTION, UNSPECIFIED Status: Acute Priority : High Current Visit: Yes Qualifiers: CVA mechanism: unspecified Qualified Code(s): I63.9 - Cerebral infarction, unspecified - Problem List Review Problem List Initiated/Reviewed/Updated: Yes - My Orders Last 24 Hours: My Active Orders 06/05/18 06:25 VTE/DVT Education [RC] 09,21 Vital Signs [RC] Q4HR OT Evaluation and Treatment [CONS] Routine PT Evaluation and Treatment [CONS] Routine LINER CHECKER Evaluation and Treatment [CONS] Routine Ondansetron [Zofran ODT] 4 mg PO Q4H PRN Ondansetron [Zofran] 4 mg IV Q4H PRN 06/05/18 07:45 Potassium Chloride [Klor-Con M20] 40 meq PO Q4H - Plan Plan:: Assessment Impression: Acute: CVA/TIA unable to get an MRI w/ AICD, Improving * R face, arm, leg numbness/tingling and RLE weakness--> No weakness today; some residual tingling in R hand * NIH Stroke Scale 3 in ED * EKG in ED shows NSR, mildly prolonged [place] interval, no significant ST/T abnormality * CT head in ED: * Small low density finding within the right cerebellar hemisphere either due to early infarct or small vessel ischemic demyelination change. MRI would be needed to differentiate. * CTA head in ED: * 1. Findings felt compatible with approximately 50% of stenosis at the origin left posterior cerebral artery. * 2. Atherosclerotic irregularity felt to be present within the left posterior cerebral artery. These findings could be confirmed by MR angiogram if needed. * Neck CTA in ED: * 1. Slight atherosclerotic calcification within both carotid bulbs. * 2. No focal stenosis or occlusion is seen. No dissection is seen. * Neurologist Dr. Alex at [facility] consulted in ED--> Recommended CTA to r/o large vessel occlusion, start full dose ASA, ECHO * Carotid U/S: * Mild to moderate amount of scattered plaque. Velocity measurements within both internal carotid arteries correspond to stenosis in the range 1-49%. * Lipids WNL * ECHO pending * Repeat Head CT tomorrow * Hold HTN medications (Norvasc and Lisinopril) * Hold ASA 81mg (home med) start ASA 325mg daily Hypokalemia * 2/2 decreased intake * 2.4 * Monitor and Replenish PRN Vitamin D Deficiency * Likely 2/2 decreased intake, reduced sun exposure * 8.2 * Supplement * F/U w/ PCP 3 months for recheck * Recommend outpt DEXA scan Folate Deficiency * Likely 2/2 decreased intake * 4.8 * Supplement * F/U with PCP Chronic: S/p V Fib arrest 2013, s/p AICD HTN HLD GERD Recurrent UTI Back Pain Hypothyroidism Anxiety Squamous Cell Carcinoma Complete Hysterectomy Plan: Admit to Medical Floor Routine AM labs Home meds as above CVA protocol Swallow eval NPO--> Clear liquids--> Heart Healthy CM/PT/OT consults DVT/GI prophylaxis Code: Full Code; PCP: Jenny SOWPMarcinC
[2018-06-05] MEDS: Cholecalciferol (Vitamin D3) 1,000 Unit Tab PO SCH (14:49)
[2018-06-05] MEDS: Folic Acid 1 MG Tab PO SCH (14:49)
[2018-06-05] MEDS: Enoxaparin 40 MG/0.4 ML Syringe SUBCUT SCH (20:08)
[2018-06-05] MEDS: Simvastatin 10 MG Tab PO SCH (20:08)
[2018-06-05] MEDS: Acetaminophen 325 MG Tab PO PRN (20:12)
[2018-06-06] MEDS: LORazepam 0.5 MG Tab PO PRN ×2 (04:34→17:15)
[2018-06-06] MEDS: Levothyroxine 75 MCG Tab PO SCH (06:01)
[2018-06-06] MEDS ORDERED: Docusate Sodium 100 MG Cap PO PRN (08:09)
[2018-06-06] MEDS: Folic Acid 1 MG Tab PO SCH (08:12)
[2018-06-06] MEDS: Cholecalciferol (Vitamin D3) 1,000 Unit Tab PO SCH (08:12)
[2018-06-06] MEDS: Aspirin 325 MG Tab.EC PO SCH (08:12)
[2018-06-06] MEDS: Metoprolol Succinate 25 MG Tab.ER PO SCH (08:12)
--- NOTE | 2018-06-06 09:08 | CT ---
Head CT Technique: Multiple axial sections through the brain were obtained. Intravenous contrast was not utilized. Comparison: Prior head CT exam of 06/04/18. Findings: Ventricles along with basal cisterns and sulci over the convexities are mildly prominent. Area of diminished density remains within the right cerebellar hemisphere. Mild diminished density is noted within the periventricular white matter compatible with small vessel ischemic demyelination change. No other abnormal parenchymal densities are seen. No evidence of intracranial hemorrhage. No midline shift or mass effect is seen. Bone window settings were reviewed which show no acute calvarial abnormality. Visualized sinuses are clear. Impression: 1. Small low density finding is again seen within the right cerebellar hemisphere either due to small vessel ischemic demyelination change or previous infarct. 2. Mild senescent change as noted above. Nothing acute is seen when compared to prior head CT exam. Diagnostic code #3
[2018-06-06] MEDS ORDERED: Vitamins A and D Oint 56.7 GM Tube TOP PRN (15:21)
--- NOTE | 2018-06-06 17:21 | PCM.PN ---
- General Info Date of Service: 06/06/18 Admission Dx/Problem (Free Text): Admission Diagnosis/Problem Admission Diagnosis/Problem CVA, Cerebrovascular accident Subjective Update: In to see Shae. She is sitting in a chair visiting with her granddaughter. She seems a bit anxious but states she is overall feeling better today, but does c/o mild headache earlier today, some residual numbness/tingling to the right hand, and some L rib/shoulder pain last night that has since resolved. I went over the results of her Head CT, explaining that it is stable, and her ECHO looked good as well. I also explained that her Potassium has improved from 3.2 to 4 today. Carotid U/S did show mild to moderate scattered plaque with stenosis ranging 1-49%. Explained she will need to continue the ASA 325 but can restart her medications at D/C. Due to our workup being done here and her clinically looking stable, I told her she could be D/C'd home today. She and the granddaughter agreed. I also talked with her son on the phone and explained the test results and that she will likely D/C home today. F/U with PCP, Cardiology and Neurology are recommended. He states he understands. Updated by nursing that Shae would be more comfortable staying one more night as she is feeling a bit dizzy and has some redness/itching to her bottom. Will give her some topical cream. Will also monitor her overnight and let therapy work with her in the AM, but from a hospitalist standpoint she is clear for discharge in the AM. She agrees with this plan. Functional Status: Reports: Pain Controlled, Tolerating Diet, Ambulating, Urinating - Review of Systems General: Reports: No Symptoms. Denies: Fever, Chills HEENT: Reports: Headaches (mild). Denies: Dysphasia Pulmonary: Reports: No Symptoms. Denies: Shortness of Breath, Cough Cardiovascular: Reports: No Symptoms. Denies: Chest Pain Gastrointestinal: Reports: No Symptoms. Denies: Abdominal Pain, Diarrhea, Nausea, Vomiting Genitourinary: Reports: No Symptoms Musculoskeletal: Reports: No Symptoms Skin: Reports: No Symptoms Neurological: Reports: Dizziness, Headache (mild), Numbness (R hand, improving) , Tingling (R hand, improving). Denies: Trouble Speaking Psychiatric: Reports: Anxiety - Patient Data Vitals - Most Recent: Last Vital Signs Temp 96.3 F 06/06/18 16:16 Pulse 66 06/06/18 16:16 Resp 14 06/06/18 16:16 BP 128/77 06/06/18 16:16 Pulse Ox 94 L 06/06/18 16:16 Weight - Most Recent: 159 lb I&O - Last 24 Hours: Intake & Output 06/06/18 06/06/18 06/06/18 06:59 14:59 22:59 Intake Total 800 720 800 Output Total 1250 Balance -450 720 800 Lab Results Last 24 Hours: Laboratory Results - last 24 hr 06/06/18 06/06/18 Range/Units 06:08 06:08 WBC 4.39 (3.98-10.04) K/mm3 RBC 4.47 (3.98-5.22) M/mm3 Hgb 13.5 (11.2-15.7) gm/L Hct 40.0 (34.1-44.9) % MCV 89.5 (79.4-94.8) fl MCH 30.2 (25.6-32.2) pg MCHC 33.8 (32.2-35.5) g/dl RDW Std Deviation 38.8 (36.4-46.3) fL Plt Count 172 L (182-369) K/mm3 MPV 9.7 (9.4-12.3) fl Neut % (Auto) 48.0 (34.0-71.1) % Lymph % (Auto) 36.9 (19.3-51.7) % [place] % (Auto) 12.1 (4.7-12.5) % Eos % (Auto) 2.1 (0.7-5.8) Baso % (Auto) 0.7 (0.1-1.2) % Neut # (Auto) 2.11 (1.56-6.13) K/mm3 Lymph # (Auto) 1.62 (1.18-3.74) K/mm3 [place] # (Auto) 0.53 H (0.24-0.36) K/mm3 Eos # (Auto) 0.09 (0.04-0.36) K/mm3 Baso # (Auto) 0.03 (0.01-0.08) K/mm3 Sodium 138 (136-145) mEq/L Potassium 4.0 (3.5-5.1) mEq/L Chloride 105 (98-107) mEq/L Carbon Dioxide 25 (21-32) mEq/L Anion Gap 12.0 (5-15) BUN 9 (7-18) mg/dL Creatinine 0.6 (0.55-1.02) mg/dL Est Cr Clr Drug Dosing 79.21 mL/min Estimated GFR (MDRD) > 60 (>60) mL/min BUN/Creatinine Ratio 15.0 (14-18) Glucose 100 (83-115) mg/dL Calcium 8.8 (8.5-10.1) mg/dL Magnesium 2.3 (1.8-2.4) mg/dl Med Orders - Current: Current Medications Acetaminophen (Tylenol) 650 mg PO Q4H PRN PRN Reason: Pain (mild 1-3) Last Admin: 06/05/18 20:12 Dose: 650 mg Aspirin (Ecotrin) 325 mg PO DAILY [facility] Last Admin: 06/06/18 08:12 Dose: 325 mg Cholecalciferol (Vitamin D3) 1,000 units PO DAILY [facility] Last Admin: 06/06/18 08:12 Dose: 1,000 units Docusate Sodium (Colace) 100 mg PO DAILY PRN PRN Reason: Constipation Last Admin: 06/06/18 08:16 Dose: 100 mg Enoxaparin Sodium (Lovenox) 40 mg SUBCUT Q24H [facility] Last Admin: 06/05/18 20:08 Dose: 40 mg Folic Acid (Folic Acid) 1 mg PO DAILY [facility] Last Admin: 06/06/18 08:12 Dose: 1 mg Hydralazine HCl (Apresoline) 10 mg IVPUSH Q8H PRN PRN Reason: Hypertension Levothyroxine Sodium (Levothyroxine) 75 mcg PO ACBRK [facility] Last Admin: 06/06/18 06:01 Dose: 75 mcg Lorazepam (Ativan) 0.5 mg PO QID PRN PRN Reason: Anxiety Last Admin: 06/06/18 04:34 Dose: 0.5 mg Metoprolol Succinate (Toprol Xl) 25 mg PO DAILY [facility] Last Admin: 06/06/18 08:12 Dose: 25 mg Ondansetron HCl (Zofran Odt) 4 mg PO Q4H PRN PRN Reason: nausea, able to take PO Ondansetron HCl (Zofran) 4 mg IV Q4H PRN PRN Reason: Nausea/Vomiting Simvastatin (Zocor) 5 mg PO BEDTIME [facility] Last Admin: 06/05/18 20:08 Dose: 5 mg Sodium Chloride (Saline Flush) 10 ml FLUSH ASDIRECTED PRN PRN Reason: Keep Vein Open Last Admin: 06/04/18 14:53 Dose: 10 ml Tramadol HCl (Ultram) 50 mg PO Q6H PRN PRN Reason: Other Last Admin: 06/06/18 04:30 Dose: 50 mg Vitamin A/Vitamin D (Vitamin A & D) 0 gm TOP Q2H PRN PRN Reason: dry skin Last Admin: 06/06/18 15:39 Dose: 1 applic Discontinued Medications Aspirin (Aspirin) 324 mg PO ONETIME ONE Stop: 06/04/18 15:50 Last Admin: 06/04/18 15:57 Dose: 324 mg Sodium Chloride (Normal Saline) 100 mls @ 60 mls/hr IV ASDIRECTED [facility] Last Admin: 06/04/18 16:37 Dose: 60 mls/hr Potassium Chloride 10 meq/ (Premix) 100 mls @ 100 mls/hr IV Q1H [facility] Stop: 06/05/18 13:29 Iopamidol (Isovue-370 (76%)) 100 ml IVPUSH ONETIME ONE Stop: 06/04/18 15:58 Last Admin: 06/04/18 16:36 Dose: 100 ml Metoprolol Succinate (Toprol Xl) 50 mg PO DAILY [facility] Potassium Chloride (Klor-Con M20) 40 meq PO Q4H [facility] Stop: 06/05/18 15:46 Last Admin: 06/05/18 14:49 Dose: 40 meq Sodium Chloride (Saline Flush) 10 ml FLUSH ONETIME ONE Stop: 06/04/18 15:58 Last Admin: 06/04/18 16:36 Dose: 10 ml - Exam Quality Assessment: DVT Prophylaxis General: Alert, Oriented, Cooperative, No Acute Distress HEENT: Pupils Equal, Pupils Reactive, EOMI, Mucous Membr. Moist/[place] Neck: Supple Lungs: Clear to Auscultation, Normal Respiratory Effort Cardiovascular: Regular Rate, Regular Rhythm GI/Abdominal Exam: Normal Bowel Sounds, Soft, Non-Tender, No Organomegaly, No Distention, No Abnormal Bruit, No Mass, Pelvis Stable (Female) Exam: Deferred Back Exam: Normal Inspection Extremities: Normal Inspection, Normal Range of Motion, Non-Tender, No Pedal Edema, Normal Capillary Refill Peripheral Pulses: 2+: Posterior Tibial (L), Posterior Tibial (R), Dorsalis Pedis (L), Dorsalis Pedis (R) Skin: Warm, Dry, Intact Neurological: No New Focal Deficit, Strength Equal Bilateral, Sensation Intact, Cranial Nerves Intact (grossly) Psy/Mental Status: Alert, Normal Affect, Normal Mood - Problem List & Annotations (1) CVA (cerebral vascular accident) SNOMED Code(s): 720783877 Code(s): I63.9 - CEREBRAL INFARCTION, UNSPECIFIED Status: Acute Priority : High Current Visit: Yes Qualifiers: CVA mechanism: unspecified Qualified Code(s): I63.9 - Cerebral infarction, unspecified - Problem List Review Problem List Initiated/Reviewed/Updated: Yes - My Orders Last 24 Hours: My Active Orders 06/06/18 15:21 Vitamins A and D [Vitamin A & D] See Dose Instructions TOP Q2H PRN 06/06/18 16:49 Ready for Discharge [RC] PER UNIT ROUTINE - Plan Plan:: Assessment Impression: Acute: CVA/TIA unable to get an MRI w/ AICD, Improving * R face, arm, leg numbness/tingling and RLE weakness--> No weakness today; some residual tingling in R hand * NIH Stroke Scale 3 in ED * EKG in ED shows NSR, mildly prolonged [place] interval, no significant ST/T abnormality * CT head in ED 06/04/18: * Small low density finding within the right cerebellar hemisphere either due to early infarct or small vessel ischemic demyelination change. MRI would be needed to differentiate. * CTA head in ED: * 1. Findings felt compatible with approximately 50% of stenosis at the origin left posterior cerebral artery. * 2. Atherosclerotic irregularity felt to be present within the left posterior cerebral artery. These findings could be confirmed by MR angiogram if needed. * Neck CTA in ED: * 1. Slight atherosclerotic calcification within both carotid bulbs. * 2. No focal stenosis or occlusion is seen. No dissection is seen. * Neurologist Dr. Alex at [facility] consulted in ED--> Recommended CTA to r/o large vessel occlusion, start full dose ASA, ECHO * Carotid U/S: * Mild to moderate amount of scattered plaque. Velocity measurements within both internal carotid arteries correspond to stenosis in the range 1-49%. * Lipids WNL * ECHO 06/05/18: * LVEF 60-65% * Mild septal LVH * Mildly dilated atrium * Mild aortic valve regurgitation * Repeat Head CT 06/06/18: * 1. Small low density finding is again seen within the right cerebellar hemisphere either due to small vessel ischemic demyelination change or previous infarct. * 2. Mild senescent change as noted above. Nothing acute is seen when compared to prior head CT exam. * Hold HTN medications (Norvasc and Lisinopril)--> Restart at D/C * Hold ASA 81mg (home med) start ASA 325mg daily Vitamin D Deficiency * Likely 2/2 decreased intake, reduced sun exposure * 8.2 * Supplement * F/U w/ PCP 3 months for recheck * Recommend outpt DEXA scan Folate Deficiency * Likely 2/2 decreased intake * 4.8 * Supplement * F/U with PCP Resolved: Hypokalemia * 2/2 decreased intake * 2.4--> 4 * Monitor and Replenish PRN Chronic: S/p V Fib arrest 2013, s/p AICD HTN HLD GERD Recurrent UTI Back Pain Hypothyroidism Anxiety Squamous Cell Carcinoma Complete Hysterectomy Plan: Admit to Medical Floor Routine AM labs Home meds as above CVA protocol Swallow eval NPO--> Clear liquids--> Heart Healthy CM/PT/OT consults DVT/GI prophylaxis Code: Full Code; PCP: Jenny CÁRDENAS
[2018-06-06] MEDS: Simvastatin 10 MG Tab PO SCH (20:20)
[2018-06-06] MEDS: Enoxaparin 40 MG/0.4 ML Syringe SUBCUT SCH (20:20)
[2018-06-06] MEDS: Acetaminophen 325 MG Tab PO PRN (20:21)
--- NOTE | 2018-06-06 20:27 | PCM.DCSUM1 ---
<Timothy Robrets - Last Filed: 06/07/18 11:15> Discharge Summary - Discharge Data Discharge Disposition: Home, Self-Care 01 Condition: Good - Patient Summary/Data Consults: Consultations 06/05/18 06:25 OT Evaluation and Treatment [CONS] Routine PT Evaluation and Treatment [CONS] Routine ROTARY DRIER Evaluation and Treatment [CONS] Routine - Discharge Plan Prescriptions/Med Rec: Aspirin [Ecotrin] 325 mg PO DAILY 30 Days #30 tab.ec Cholecalciferol (Vitamin D3) [Vitamin D3] 1,000 units PO DAILY 30 Days #30 tablet Folic Acid 1 mg PO DAILY 30 Days #30 tablet Home Medications: Home Meds LORazepam 0.5 - 1 mg PO QID PRN 04/25/14 [History] Metoprolol Succinate [Toprol XL] 50 mg PO DAILY 04/25/14 [History] Pantoprazole [ProTONIX] 40 mg PO DAILY 04/25/14 [History] Pravastatin [Pravachol] 10 mg PO DAILY 04/25/14 [History] Aspirin [Franck Chewable Aspirin] 81 mg PO DAILY 05/23/14 [History] Levothyroxine [Synthroid] 75 mcg PO DAILY 04/26/16 [History] amLODIPine [Norvasc] 2.5 mg PO DAILY 10/18/16 [History] traMADol HCl [Tramadol HCl] 50 mg PO Q6H PRN #30 tablet 10/20/16 [Rx] Acetaminophen [Tylenol Extra Strength] 500 mg PO TID PRN 01/30/17 [History] Lisinopril 10 mg PO DAILY 06/04/18 [History] Aspirin [Ecotrin] 325 mg PO DAILY 30 Days #30 tab.ec 06/06/18 [Rx] Cholecalciferol (Vitamin D3) [Vitamin D3] 1,000 units PO DAILY 30 Days #30 tablet 06/06/18 [Rx] Folic Acid 1 mg PO DAILY 30 Days #30 tablet 06/06/18 [Rx] Patient Handouts: Stroke Prevention, [id number], Hypokalemia, Ischemic Stroke , [id number], Vitamin D Deficiency, [id number] Referrals: Jenny Waddell NP [Primary Care Provider] - 06/12/18 1:30 pm (Please follow up with Jenny Waddell on MondayJune 12 at 1:30 pm) Dominic Adams MD [Ordering Only Provider] - 07/02/18 10:00 am (please attend the [facility] appointment with your millwright helper. This appt. is in [facility] time.) - General Info Subjective Update: In to see Shae. She is sitting up in the chair. She has no immediate concerns and we discussed her lab results for the day and what she will need after discharge in terms of follow-up. Her son was at bedside. No nursing concerns. She will be discharged today. Functional Status: Reports: Pain Controlled, Tolerating Diet, Ambulating, Urinating. Denies: New Symptoms - Review of Systems General: Reports: No Symptoms. Denies: Fever, Fatigue, Chills HEENT: Reports: No Symptoms Pulmonary: Reports: No Symptoms. Denies: Shortness of Breath, Pleuritic Chest Pain, Cough, Sputum, Wheezing Cardiovascular: Reports: No Symptoms. Denies: Chest Pain, Palpitations, Dyspnea on Exertion, Edema, Lightheadedness Gastrointestinal: Reports: No Symptoms. Denies: Abdominal Pain, Constipation, Diarrhea, Nausea, Vomiting Genitourinary: Reports: No Symptoms. Denies: Pain Musculoskeletal: Reports: No Symptoms Skin: Reports: No Symptoms Neurological: Reports: No Symptoms, Numbness (residual right hand - improved ), Tingling (residual right hand - improving ). Denies: Confusion, Dizziness, Pre- Existing Deficit, Seizure, Difficulty Walking Psychiatric: Reports: No Symptoms - Patient Data Vitals - Most Recent: Last Vital Signs Temp 98.1 F 06/07/18 04:00 Pulse 70 06/07/18 04:00 Resp 18 06/07/18 04:00 BP 140/80 06/07/18 04:00 Pulse Ox 94 L 06/07/18 04:00 I&O - Last 24 hours: Intake & Output 06/06/18 06/07/18 06/07/18 22:59 06:59 14:59 Intake Total 890 800 Output Total 1100 Balance 890 -300 Lab Results - Last 24 hrs: Laboratory Results - last 24 hr 06/06/18 06/06/18 06/07/18 Range/Units 06:08 06:08 06:25 WBC 4.39 5.22 (3.98-10.04) K/mm3 RBC 4.47 4.54 (3.98-5.22) M/mm3 Hgb 13.5 13.9 (11.2-15.7) gm/L Hct 40.0 40.6 (34.1-44.9) % MCV 89.5 89.4 (79.4-94.8) fl MCH 30.2 30.6 (25.6-32.2) pg MCHC 33.8 34.2 (32.2-35.5) g/dl RDW Std Deviation 38.8 38.0 (36.4-46.3) fL Plt Count 172 L 188 (182-369) K/mm3 MPV 9.7 9.5 (9.4-12.3) fl Neut % (Auto) 48.0 38.9 (34.0-71.1) % Lymph % (Auto) 36.9 47.1 (19.3-51.7) % Blanco % (Auto) 12.1 10.3 (4.7-12.5) % Eos % (Auto) 2.1 2.9 (0.7-5.8) Baso % (Auto) 0.7 0.6 (0.1-1.2) % Neut # (Auto) 2.11 2.03 (1.56-6.13) K/mm3 Lymph # (Auto) 1.62 2.46 (1.18-3.74) K/mm3 Blanco # (Auto) 0.53 H 0.54 H (0.24-0.36) K/mm3 Eos # (Auto) 0.09 0.15 (0.04-0.36) K/mm3 Baso # (Auto) 0.03 0.03 (0.01-0.08) K/mm3 Sodium 138 (136-145) mEq/L Potassium 4.0 (3.5-5.1) mEq/L Chloride 105 (98-107) mEq/L Carbon Dioxide 25 (21-32) mEq/L Anion Gap 12.0 (5-15) BUN 9 (7-18) mg/dL Creatinine 0.6 (0.55-1.02) mg/dL Est Cr Clr Drug Dosing 79.21 mL/min Estimated GFR (MDRD) > 60 (>60) mL/min BUN/Creatinine Ratio 15.0 (14-18) Glucose 100 (83-115) mg/dL Calcium 8.8 (8.5-10.1) mg/dL Magnesium 2.3 (1.8-2.4) mg/dl Med Orders - Current: Current Medications Acetaminophen (Tylenol) 650 mg PO Q4H PRN PRN Reason: Pain (mild 1-3) Last Admin: 06/06/18 20:21 Dose: 650 mg Aspirin (Ecotrin) 325 mg PO DAILY [facility] Last Admin: 06/06/18 08:12 Dose: 325 mg Cholecalciferol (Vitamin D3) 1,000 units PO DAILY [facility] Last Admin: 06/06/18 08:12 Dose: 1,000 units Docusate Sodium (Colace) 100 mg PO DAILY PRN PRN Reason: Constipation Last Admin: 06/06/18 08:16 Dose: 100 mg Enoxaparin Sodium (Lovenox) 40 mg SUBCUT Q24H [facility] Last Admin: 06/06/18 20:20 Dose: 40 mg Folic Acid (Folic Acid) 1 mg PO DAILY [facility] Last Admin: 06/06/18 08:12 Dose: 1 mg Hydralazine HCl (Apresoline) 10 mg IVPUSH Q8H PRN PRN Reason: Hypertension Levothyroxine Sodium (Levothyroxine) 75 mcg PO ACBRK [facility] Last Admin: 06/07/18 06:11 Dose: 75 mcg Lorazepam (Ativan) 0.5 mg PO QID PRN PRN Reason: Anxiety Last Admin: 06/07/18 06:11 Dose: 0.5 mg Metoprolol Succinate (Toprol Xl) 25 mg PO DAILY [facility] Last Admin: 06/06/18 08:12 Dose: 25 mg Ondansetron HCl (Zofran Odt) 4 mg PO Q4H PRN PRN Reason: nausea, able to take PO Last Admin: 06/07/18 00:48 Dose: 4 mg Ondansetron HCl (Zofran) 4 mg IV Q4H PRN PRN Reason: Nausea/Vomiting Simvastatin (Zocor) 5 mg PO BEDTIME [facility] Last Admin: 06/06/18 20:20 Dose: 5 mg Sodium Chloride (Saline Flush) 10 ml FLUSH ASDIRECTED PRN PRN Reason: Keep Vein Open Last Admin: 06/04/18 14:53 Dose: 10 ml Tramadol HCl (Ultram) 50 mg PO Q6H PRN PRN Reason: Other Last Admin: 06/06/18 04:30 Dose: 50 mg Vitamin A/Vitamin D (Vitamin A & D) 0 gm TOP Q2H PRN PRN Reason: dry skin Last Admin: 06/06/18 15:39 Dose: 1 applic Discontinued Medications Aspirin (Aspirin) 324 mg PO ONETIME ONE Stop: 06/04/18 15:50 Last Admin: 06/04/18 15:57 Dose: 324 mg Sodium Chloride (Normal Saline) 100 mls @ 60 mls/hr IV ASDIRECTED [facility] Last Admin: 06/04/18 16:37 Dose: 60 mls/hr Potassium Chloride 10 meq/ (Premix) 100 mls @ 100 mls/hr IV Q1H [facility] Stop: 06/05/18 13:29 Iopamidol (Isovue-370 (76%)) 100 ml IVPUSH ONETIME ONE Stop: 06/04/18 15:58 Last Admin: 06/04/18 16:36 Dose: 100 ml Metoprolol Succinate (Toprol Xl) 50 mg PO DAILY [facility] Potassium Chloride (Klor-Con M20) 40 meq PO Q4H [facility] Stop: 06/05/18 15:46 Last Admin: 06/05/18 14:49 Dose: 40 meq Sodium Chloride (Saline Flush) 10 ml FLUSH ONETIME ONE Stop: 06/04/18 15:58 Last Admin: 06/04/18 16:36 Dose: 10 ml - Exam Quality Assessment: Reports: DVT Prophylaxis General: Reports: Alert, Oriented, Cooperative, No Acute Distress HEENT: Reports: Pupils Equal, Pupils Reactive, EOMI, Mucous Membr. Moist/Fellows Neck: Reports: Supple, Trachea Midline, No JVD Lungs: Reports: Clear to Auscultation, Normal Respiratory Effort Cardiovascular: Reports: Regular Rate, Regular Rhythm GI/Abdominal Exam: Normal Bowel Sounds, Soft, Non-Tender, No Organomegaly, No Distention, No Abnormal Bruit, No Mass, Pelvis Stable (Female) Exam: Deferred Rectal (Female) Exam: Deferred Back Exam: Reports: Normal Inspection Extremities: Normal Inspection, Normal Range of Motion, Non-Tender, No Pedal Edema, Normal Capillary Refill Skin: Reports: Warm, Dry, Intact Neurological: Reports: No New Focal Deficit Psy/Mental Status: Reports: Alert, Normal Affect, Normal Mood <Kimberly Louise - Last Filed: 06/07/18 18:02> Discharge Summary - Hospital Course HPI Initial Comments: The patient is a 77-year-old female who comes in with a chief complaint of right face, arm, and leg numbness and right lower extremity weakness. She felt fine when she went to bed last night. She woke up with these symptoms. She states there was no provoking factor. The symptoms have been constant all day. She says that her face, arm, and leg feel like pins and needles like they "fell asleep" and that she has decreased sensation in those areas. She denies history of similar symptoms previously. She also feels like her right leg is heavy and slightly weak. She is able to walk. She doesn't have any weakness in her arms or in her face. No speech abnormality no vision change. No confusion. No additional complaint. She otherwise feels well. No recent trauma. No recent fever. She has a history of an ICD/pacemaker due to prior ventricular fibrillation cardiac arrest in 2013. She does not take blood thinners. Diagnosis: Stroke: Yes Modified Brule Scale: No Signif.Disability Despite Sympt.Able to Carry Out Usual Act./Duties Modified Ruth Scale Score: 1 - Discharge Data Discharge Date: 06/07/18 (ADMIT 06/04/18) - Discharge Diagnosis/Problem(s) (1) CVA (cerebral vascular accident) SNOMED Code(s): 633977840 ICD Code: I63.9 - CEREBRAL INFARCTION, UNSPECIFIED Status: Acute Priority : High Qualifiers: CVA mechanism: unspecified Qualified Code(s): I63.9 - Cerebral infarction, unspecified - Patient Summary/Data Operative Procedure(s) Performed: none Complications: none Consults: Consultations 06/05/18 06:25 OT Evaluation and Treatment [CONS] Routine PT Evaluation and Treatment [CONS] Routine ROTARY DRIER Evaluation and Treatment [CONS] Routine Labs Pending at D/C: none Recommended Follow-up Testing/Procedures: F/U with Outpt Physical Therapy & Occupational Therapy with [facility] at the hospital F/U with PCP Jenny Waddell 06/12/18 at 1:30pm: -Recommend DEXA scan as had low Vit D while here -Recheck Vit D in 3 months -Recheck Folate; started on supplement here -Recheck Potassium; low while here -Started on Vit D Supplement while here- discuss with PCP if would like to continue -Need to set up F/U with neurology F/U with millwright helper Dr. Adams on 07/02/28 at 10am Planned Operative Procedure(s) after DC: none Hospital Course: Assessment Impression: Acute: CVA/TIA unable to get an MRI w/ AICD, Improving R face, arm, leg numbness/tingling and RLE weakness--> No weakness today; some residual tingling in R hand NIH Stroke Scale 3 in ED EKG in ED shows NSR, mildly prolonged HI interval, no significant ST/T abnormality CT head in ED 06/04/18: Small low density finding within the right cerebellar hemisphere either due to early infarct or small vessel ischemic demyelination change. MRI would be needed to differentiate. CTA head in ED: 1. Findings felt compatible with approximately 50% of stenosis at the origin left posterior cerebral artery. 2. Atherosclerotic irregularity felt to be present within the left posterior cerebral artery. These findings could be confirmed by MR angiogram if needed. Neck CTA in ED: 1. Slight atherosclerotic calcification within both carotid bulbs. 2. No focal stenosis or occlusion is seen. No dissection is seen. Neurologist Dr. Alex at [facility] consulted in ED--> Recommended CTA to r/o large vessel occlusion, start full dose ASA, ECHO Carotid U/S: Mild to moderate amount of scattered plaque. Velocity measurements within both internal carotid arteries correspond to stenosis in the range 1-49%. Lipids WNL ECHO 06/05/18: LVEF 60-65% Mild septal LVH Mildly dilated atrium Mild aortic valve regurgitation Repeat Head CT 06/06/18: 1. Small low density finding is again seen within the right cerebellar hemisphere either due to small vessel ischemic demyelination change or previous infarct. 2. Mild senescent change as noted above. Nothing acute is seen when compared to prior head CT exam. Hold HTN medications (Norvasc and Lisinopril)--> Restart at D/C Hold ASA 81mg (home med) start ASA 325mg daily Vitamin D Deficiency Likely 2/2 decreased intake, reduced sun exposure 8.2 Supplement F/U w/ PCP 3 months for recheck Recommend outpt DEXA scan Folate Deficiency Likely 2/2 decreased intake 4.8 Supplement F/U with PCP Resolved: Hypokalemia 2/2 decreased intake 2.4--> 4 Monitor and Replenish PRN Chronic: S/p V Fib arrest 2013, s/p AICD HTN HLD GERD Recurrent UTI Back Pain Hypothyroidism Anxiety Squamous Cell Carcinoma Complete Hysterectomy Plan: Admit to Medical Floor Routine AM labs Home meds as above CVA protocol Swallow eval NPO--> Clear liquids--> Heart Healthy CM/PT/OT consults DVT/GI prophylaxis Code: Full Code; PCP: Jenny CÁRDENAS Shae did well here after being admitted for CVA/TIA. She was unable to get an MRI d/t AICD. CT showed small low density finding within the right cerebellar hemisphere either due to early infarct or small vessel ischemic demyelination change. Neurologist Dr. Alex at [facility] was consulted in ED and recommended CTA to r/o large vessel occlusion (found approximately 50% of stenosis at the origin left posterior cerebral artery), start 325mg ASA, and get an ECHO (benign). Lipids WNL. Mild to moderate plaque found in carotid U/S. Slight atherosclerotic calcification within both carotid bulbs on CTA of neck. No clear cause of this condition. Symptoms have since resolved besides some residual tingling in R hand. Recommend f/u with millwright helper and neurologist. She was also found to have Vitamin D and Folate deficiency while here and will be sent with prescriptions for supplementing both. Recommend f/u with PCP on 06/12- Recommend DEXA scan d/t low Vit D, recheck of Vit D in 3 months, Recheck folate, Recheck potassium, and need neurology appt to be set up by PCP. PT/OT recommend outpt therapy at [facility]. She will be D/C'd home today. - Patient Instructions Diet: Heart Healthy Diet Activity: As Tolerated Driving: Do Not Drive Showering/Bathing: May Shower Notify Provider of: Fever, Increased Pain, Nausea and/or Vomiting Other/Special Instructions: Please return to ED if worsening of symptoms, increased dizziness, weakness - Discharge Plan *PRESCRIPTION DRUG MONITORING PROGRAM REVIEWED*: Not Applicable *COPY OF PRESCRIPTION DRUG MONITORING REPORT IN PATIENT MARIAH: Not Applicable Oxygen Therapy Mode: Room Air - Discharge Summary/Plan Comment DC Time >30 min.: Yes (40) - General Info Date of Service: 06/06/18 Admission Dx/Problem (Free Text: Admission Diagnosis/Problem Admission Diagnosis/Problem CVA, Cerebrovascular accident - Review of Systems Neurological: Reports: Numbness - Patient Data Vitals - Most Recent: Last Vital Signs Temp 96.3 F 06/06/18 16:16 Pulse 66 06/06/18 16:16 Resp 14 06/06/18 16:16 BP 128/77 06/06/18 16:16 Pulse Ox 94 L 06/06/18 16:16 Weight - Most Recent: 159 lb I&O - Last 24 hours: Intake & Output 06/06/18 06/06/18 06/06/18 06:59 14:59 22:59 Intake Total 800 720 890 Output Total 1250 Balance -450 720 890 Lab Results - Last 24 hrs: Laboratory Results - last 24 hr 06/06/18 06/06/18 Range/Units 06:08 06:08 WBC 4.39 (3.98-10.04) K/mm3 RBC 4.47 (3.98-5.22) M/mm3 Hgb 13.5 (11.2-15.7) gm/L Hct 40.0 (34.1-44.9) % MCV 89.5 (79.4-94.8) fl MCH 30.2 (25.6-32.2) pg MCHC 33.8 (32.2-35.5) g/dl RDW Std Deviation 38.8 (36.4-46.3) fL Plt Count 172 L (182-369) K/mm3 MPV 9.7 (9.4-12.3) fl Neut % (Auto) 48.0 (34.0-71.1) % Lymph % (Auto) 36.9 (19.3-51.7) % Blanco % (Auto) 12.1 (4.7-12.5) % Eos % (Auto) 2.1 (0.7-5.8) Baso % (Auto) 0.7 (0.1-1.2) % Neut # (Auto) 2.11 (1.56-6.13) K/mm3 Lymph # (Auto) 1.62 (1.18-3.74) K/mm3 Blanco # (Auto) 0.53 H (0.24-0.36) K/mm3 Eos # (Auto) 0.09 (0.04-0.36) K/mm3 Baso # (Auto) 0.03 (0.01-0.08) K/mm3 Sodium 138 (136-145) mEq/L Potassium 4.0 (3.5-5.1) mEq/L Chloride 105 (98-107) mEq/L Carbon Dioxide 25 (21-32) mEq/L Anion Gap 12.0 (5-15) BUN 9 (7-18) mg/dL Creatinine 0.6 (0.55-1.02) mg/dL Est Cr Clr Drug Dosing 79.21 mL/min Estimated GFR (MDRD) > 60 (>60) mL/min BUN/Creatinine Ratio 15.0 (14-18) Glucose 100 (83-115) mg/dL Calcium 8.8 (8.5-10.1) mg/dL Magnesium 2.3 (1.8-2.4) mg/dl Med Orders - Current: Current Medications Acetaminophen (Tylenol) 650 mg PO Q4H PRN PRN Reason: Pain (mild 1-3) Last Admin: 06/05/18 20:12 Dose: 650 mg Aspirin (Ecotrin) 325 mg PO DAILY [facility] Last Admin: 06/06/18 08:12 Dose: 325 mg Cholecalciferol (Vitamin D3) 1,000 units PO DAILY [facility] Last Admin: 06/06/18 08:12 Dose: 1,000 units Docusate Sodium (Colace) 100 mg PO DAILY PRN PRN Reason: Constipation Last Admin: 06/06/18 08:16 Dose: 100 mg Enoxaparin Sodium (Lovenox) 40 mg SUBCUT Q24H [facility] Last Admin: 06/05/18 20:08 Dose: 40 mg Folic Acid (Folic Acid) 1 mg PO DAILY [facility] Last Admin: 06/06/18 08:12 Dose: 1 mg Hydralazine HCl (Apresoline) 10 mg IVPUSH Q8H PRN PRN Reason: Hypertension Levothyroxine Sodium (Levothyroxine) 75 mcg PO ACBRK [facility] Last Admin: 06/06/18 06:01 Dose: 75 mcg Lorazepam (Ativan) 0.5 mg PO QID PRN PRN Reason: Anxiety Last Admin: 06/06/18 17:15 Dose: 0.5 mg Metoprolol Succinate (Toprol Xl) 25 mg PO DAILY [facility] Last Admin: 06/06/18 08:12 Dose: 25 mg Ondansetron HCl (Zofran Odt) 4 mg PO Q4H PRN PRN Reason: nausea, able to take PO Ondansetron HCl (Zofran) 4 mg IV Q4H PRN PRN Reason: Nausea/Vomiting Simvastatin (Zocor) 5 mg PO BEDTIME [facility] Last Admin: 06/05/18 20:08 Dose: 5 mg Sodium Chloride (Saline Flush) 10 ml FLUSH ASDIRECTED PRN PRN Reason: Keep Vein Open Last Admin: 06/04/18 14:53 Dose: 10 ml Tramadol HCl (Ultram) 50 mg PO Q6H PRN PRN Reason: Other Last Admin: 06/06/18 04:30 Dose: 50 mg Vitamin A/Vitamin D (Vitamin A & D) 0 gm TOP Q2H PRN PRN Reason: dry skin Last Admin: 06/06/18 15:39 Dose: 1 applic Discontinued Medications Aspirin (Aspirin) 324 mg PO ONETIME ONE Stop: 06/04/18 15:50 Last Admin: 06/04/18 15:57 Dose: 324 mg Sodium Chloride (Normal Saline) 100 mls @ 60 mls/hr IV ASDIRECTED [facility] Last Admin: 06/04/18 16:37 Dose: 60 mls/hr Potassium Chloride 10 meq/ (Premix) 100 mls @ 100 mls/hr IV Q1H [facility] Stop: 06/05/18 13:29 Iopamidol (Isovue-370 (76%)) 100 ml IVPUSH ONETIME ONE Stop: 06/04/18 15:58 Last Admin: 06/04/18 16:36 Dose: 100 ml Metoprolol Succinate (Toprol Xl) 50 mg PO DAILY [facility] Potassium Chloride (Klor-Con M20) 40 meq PO Q4H [facility] Stop: 06/05/18 15:46 Last Admin: 06/05/18 14:49 Dose: 40 meq Sodium Chloride (Saline Flush) 10 ml FLUSH ONETIME ONE Stop: 06/04/18 15:58 Last Admin: 06/04/18 16:36 Dose: 10 ml
[2018-06-07] MEDS: Levothyroxine 75 MCG Tab PO SCH (06:11)
[2018-06-07] MEDS: LORazepam 0.5 MG Tab PO PRN (06:11)
[2018-06-07] MEDS: Aspirin 325 MG Tab.EC PO SCH (08:30)
[2018-06-07] MEDS: Folic Acid 1 MG Tab PO SCH (08:30)
[2018-06-07] MEDS: Metoprolol Succinate 25 MG Tab.ER PO SCH (08:34)
[2018-06-07] MEDS: Cholecalciferol (Vitamin D3) 1,000 Unit Tab PO SCH (08:35)
[2018-06-07 08:36] VITALS: BP 94/76
== END 2018-06-07 11:23 | disposition home or self-care (01) | DRG 65 ==
LOC: JD.ED 14:33 → JD.MS 18:32
PROVIDERS: ADMIT Internal Medicine Cardiovascular Disease; ATTEND Internal Medicine Cardiovascular Disease
DX: R53.1 Weakness (principal); R20.0 Anesthesia of skin; I63.9 Cerebral infarction, unspecified; G81.91 Hemiplegia, unspecified affecting right dominant side; R20.2 Paresthesia of skin; E78.00 Pure hypercholesterolemia, unspecified; E78.5 Hyperlipidemia, unspecified; E55.9 Vitamin D deficiency, unspecified; E53.8 Deficiency of other specified B group vitamins; E87.6 Hypokalemia; R29.703 NIHSS score 3; H54.7 Unspecified visual loss; I10 Essential (primary) hypertension; K21.9 Gastro-esophageal reflux disease without esophagitis; M54.9 Dorsalgia, unspecified; G89.29 Other chronic pain; F41.9 Anxiety disorder, unspecified; E03.9 Hypothyroidism, unspecified; Z85.828 Personal history of other malignant neoplasm of skin; Z90.710 Acquired absence of both cervix and uterus; Z95.810 Presence of automatic (implantable) cardiac defibrillator; Z88.1 Allergy status to other antibiotic agents; Z86.74 Personal history of sudden cardiac arrest; Z88.0 Allergy status to penicillin; Z86.010 Personal history of colon polyps; Z87.440 Personal history of urinary (tract) infections; Z88.8 Allergy status to other drugs, medicaments and biological substances; Z79.899 Other long term (current) drug therapy; Z79.82 Long term (current) use of aspirin
CPT/HCPCS: 36415; 70450; 70496; 70498; 71045; 80053; 82962; 83735; 84484; 85025; 85610; 93005; 99285; A9270; J7030; Q9967; 80048; 80061; 82306; 82746; 84443; 86038; 86140; 92610-GN; 93306; 93880; 93880-26; 97110-GO; 97110-GP; 97116-GP; 97162-GP; 97165-GO; 97530-GO; J1650

== ENCOUNTER 2019-10-20 14:43 | Emergency (ER) | payer MEDICARE, BC ==
[2019-10-20] MEDS ORDERED: Acetaminophen 325 MG Tab PO ONE (15:11)
--- NOTE | 2019-10-20 15:26 | EDM.PDOC ---
ED HPI GENERAL MEDICAL PROBLEM - General Chief Complaint: Head Injury Stated Complaint: FACIAL LAC Time Seen by Provider: 10/20/19 14:57 Source of Information: Reports: Patient, RN Notes Reviewed History Limitations: Reports: No Limitations - History of Present Illness INITIAL COMMENTS - FREE TEXT/NARRATIVE: The patient is a 79-year-old female who presents to the ED for the evaluation of a fall/head injury. She was exiting her pickup truck, walking into a local supply store, and she ended up tripping over a concrete curb stop. She states she fell on her left arm, and the left side of her face. She did not lose consciousness, knew exactly where she was right afterwards, and did appreciate some blood running down her face. She has a rather large hematoma to the left outer aspect of her orbit, and a laceration above her left eye that is roughly 1 to 1.5 cm long. She is having some mild pain to the left eye, forehead, and her upper left arm. Patient thinks that she landed on her shoulder/proximal humerus. She states she is not having any numbness and tingling into her hand, but it is quite painful to move the arm around. Patient does take aspirin on a daily basis but denies being on any other blood thinners. Patient denies any blurred vision, or headaches. She denies any other sick-like symptoms, fever/ chills, cough/shortness of breath. She states she was not dizzy before the accident, she simply did not see the curb stop, and ended up tripping over it inadvertently. Left Forehead Pain Score (Numeric/FACES): 8 - Related Data Allergies Allergy/AdvReac Type Severity Reaction Status Date / Time ciprofloxacin Allergy Severe Hives Verified 10/20/19 14:59 ibuprofen Allergy Severe Hives Verified 10/20/19 14:59 penicillin G Allergy Severe Hives Verified 10/20/19 14:59 Home Meds: Home Meds LORazepam 0.5 - 1 mg PO QID PRN 04/25/14 [History] Metoprolol Succinate [Toprol XL] 50 mg PO DAILY 04/25/14 [History] Pantoprazole [ProTONIX] 40 mg PO DAILY 04/25/14 [History] Pravastatin [Pravachol] 10 mg PO DAILY 04/25/14 [History] Levothyroxine [Synthroid] 75 mcg PO DAILY 04/26/16 [History] amLODIPine [Norvasc] 2.5 mg PO DAILY 10/18/16 [History] traMADol HCl [Tramadol HCl] 50 mg PO Q6H PRN #30 tablet 10/20/16 [Rx] Acetaminophen [Tylenol Extra Strength] 500 mg PO TID PRN 01/30/17 [History] Lisinopril 10 mg PO DAILY 06/04/18 [History] Aspirin [Ecotrin EC] 325 mg PO DAILY 30 Days #30 tab.ec 06/06/18 [Rx] Cholecalciferol (Vitamin D3) [Vitamin D3] 5,000 units PO DAILY 10/20/19 [History ] Past Medical History - Past Health History Medical/Surgical History: Denies Medical/Surgical History HEENT History: Reports: Impaired Vision Other HEENT History: wears eyeglasses Cardiovascular History: Reports: High Cholesterol, Hypertension Other Cardiovascular History: cardiac arrest -shocked 2 times and sent to [facility] almost 3 yrs ago Gastrointestinal History: Reports: Colon Polyp, GERD Genitourinary History: Reports: UTI, Recurrent 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: Musculoskeletal History: Reports: Back Pain, Chronic Other Musculoskeletal History: currently has back pain and both of her knees hurt Psychiatric History: Reports: Anxiety Endocrine/Metabolic History: Reports: Hypothyroidism Oncologic (Cancer) History: Reports: Squamous Cell Carcinoma - Infectious Disease History Infectious Disease History: Reports: Measles - Past Surgical History HEENT Surgical History: Reports: Cataract Surgery, Tonsillectomy Cardiovascular Surgical History: Reports: AICD, Pacer Female Surgical History: Reports: Hysterectomy, Salpingo-Oophorectomy Social & Family History - Family History Family Medical History: Noncontributory Oncologic: Reports: Other (See Below) Other Oncologic Family History: throat - Tobacco Use Smoking Status *Q: Never Smoker - Caffeine Use Caffeine Use: Reports: Coffee Other Caffeine Use: 1 cup/day - Recreational Drug Use Recreational Drug Use: No - Living Situation & Occupation Living situation: Reports: , with Spouse Occupation: Retired ED ROS GENERAL - Review of Systems Review Of Systems: Comprehensive ROS is negative, except as noted in HPI. ED EXAM, HEAD INJURY - Physical Exam Exam: See Below Exam Limited By: No Limitations General Appearance: Alert, WD/WN, No Apparent Distress Head: Normocephalic, Active Bleeding (to left outer eye orbit, however this is very little), Facial Lacerations (outer left eye orbit, 1-1.5cm linear laceration in lateral eyebrow), Facial Swelling (ping pong size swelling to left outer eye orbit), Sinus Tenderness (Left frontal and maxillary tenderness) , Facial Tenderness (left maxillary and left forehead). No: Raccoon Eyes Nexus Criteria: No: Posterior, Midline Cervical Tenderness, Evidence of Intoxication, Altered Level of Consciousness, Focal Neurological Deficit, Painful Distraction Injuries Eyes: Bilateral Eye: EOMI, Normal Inspection, PERRL Ears: Normal External Exam, Normal Canal, Hearing Grossly Normal, Normal TMs Nose: Normal Inspection, Normal Mucousa, No Blood Throat/Mouth: Normal Inspection, Normal Lips, Normal Teeth, Normal Gums, Normal Oropharynx, Normal Voice, No Airway Compromise Neck: Non-Tender, Full Range of Motion, Normal Alignment, Normal Inspection Respiratory: No Respiratory Distress, Lungs Clear, Normal Breath Sounds, No Accessory Muscle Use, Chest Non-Tender Extremities: Normal Inspection, Normal Capillary Refill, Limited Range of Motion (of left shoulder d/t pain) Neurologic: sock ironer II-XII nml As Tested, No Motor/Sensory Deficits, Alert, Normal Mood/Affect, Oriented x 3 Skin: Normal Color, Warm/Dry - Nuvia Coma Score Best Eye Response ([place]): (4) Open Spontaneously Best Verbal Response ([place]uv[place]): (5) Oriented Best Motor Response ([place]): (6) Obeys Commands Nuvia Total: 15 ED LACERATION/WOUND & SARAH PROC - Laceration/Wound Repair Left Lateral Face Lac/wound length in cm: 1.5 Appearance: Subcutaneous, Linear, Clean Distal NVT: Neuro & Vascular Intact, No Tendon Injury Anesthetic Type: Local Local Anesthesia - Lidocaine (Xylocaine): 1% Plain Local Anesthetic Volume: 2cc Skin Prep: Chlorhexidine (Hibiciens), Saline Exploration/Debridement/Repair: Wound Explored, In a Bloodless Field, Explored to Base, No Foreign Material Found Closed with: Sutures Suture Size: 5-0 # of Sutures: 4 Suture Type: Prolene, Interrupted, Simple Sterile Dressing Applied: Nurse Tetanus Status Addressed: Yes (updated at today's visit) Complications: No Course - Vital Signs Last Recorded V/S: Last Vital Signs Temp 98.7 F 10/20/19 14:54 Pulse 58 L 10/20/19 14:54 Resp 18 10/20/19 14:54 BP 117/81 10/20/19 14:54 Pulse Ox 98 10/20/19 14:54 - Orders/Labs/Meds Orders: Active Orders 24 hr Category Date Time Status Vaccines to be Administered [RC] PER UNIT ROUTINE Care 10/20/19 16:29 Active Labs: Laboratory Tests 10/20/19 10/20/19 Range/Units 15:22 15:22 WBC 4.67 (3.98-10.04) K/mm3 RBC 4.03 (3.98-5.22) M/mm3 Hgb 12.4 (11.2-15.7) gm/dl Hct 36.3 (34.1-44.9) % MCV 90.1 (79.4-94.8) fl MCH 30.8 (25.6-32.2) pg MCHC 34.2 (32.2-35.5) g/dl RDW Std Deviation 38.9 (36.4-46.3) fL Plt Count 169 L (182-369) K/mm3 MPV 9.4 (9.4-12.3) fl Neut % (Auto) 45.6 (34.0-71.1) % Lymph % (Auto) 39.2 (19.3-51.7) % [place] % (Auto) 10.1 (4.7-12.5) % Eos % (Auto) 4.5 (0.7-5.8) Baso % (Auto) 0.6 (0.1-1.2) % Neut # (Auto) 2.13 (1.56-6.13) K/mm3 Lymph # (Auto) 1.83 (1.18-3.74) K/mm3 [place] # (Auto) 0.47 H (0.24-0.36) K/mm3 Eos # (Auto) 0.21 (0.04-0.36) K/mm3 Baso # (Auto) 0.03 (0.01-0.08) K/mm3 Sodium 143 (136-145) mEq/L Potassium 3.4 L (3.5-5.1) mEq/L Chloride 107 (98-107) mEq/L Carbon Dioxide 28 (21-32) mEq/L Anion Gap 11.4 (5-15) BUN 11 (7-18) mg/dL Creatinine 0.6 (0.55-1.02) mg/dL Est Cr Clr Drug Dosing 76.69 mL/min Estimated GFR (MDRD) > 60 (>60) mL/min BUN/Creatinine Ratio 18.3 H (14-18) Glucose 108 (83-115) mg/dL Calcium 8.4 L (8.5-10.1) mg/dL Total Bilirubin 0.5 (0.2-1.0) mg/dL AST 12 L (15-37) U/L ALT 13 L (14-59) U/L Alkaline Phosphatase 73 (46-116) U/L Total Protein 6.2 L (6.4-8.2) g/dl Albumin 3.4 (3.4-5.0) g/dl Globulin 2.8 gm/dL Albumin/Globulin Ratio 1.2 (1-2) Meds: Medications Discontinued Medications Generic Name Dose Route Start Last Admin Trade Name Freq PRN Reason Stop Dose Admin Acetaminophen 650 mg 10/20/19 15:11 10/20/19 15:21 Tylenol PO 10/20/19 15:12 650 mg NOW ONE Administration Diphtheria/Tetanus/Acell Pertussis 0.5 ml 10/20/19 16:29 10/20/19 16:40 Adacel IM 10/20/19 16:30 0.5 ml .ONCE ONE Administration Lidocaine HCl 10 ml 10/20/19 16:15 10/20/19 16:41 Xylocaine 1% INJECT 10/20/19 16:16 10 ml ONETIME ONE Administration - Re-Assessments/Exams Free Text/Narrative Re-Assessment/Exam: 10/20/19 15:26 Patient presents to the ED for the evaluation of her head injury/facial laceration. Head CT and maxillofacial CT will be performed to rule out any abnormalities, patient will have x-rays taken of her humerus, which will include the shoulder joint. Patient did request something for pain and requested Tylenol, this was ordered and provided. Basic labs to include CBC and CMP, Although patient denies any sort of a her son was worried about her potassium level. Dizziness or lightheadedness prior to the fall; I suspect labs will have no worrisome abnormalities. 10/20/19 15:58 Patient did express to the nurse on duty that she is having pain in her knees and would like the knees x-rayed to rule out injury as well. Have ordered bilateral knee x-rays for evaluation as well. 10/20/19 16:25 All x-rays and CTs are within normal limits, there is some soft tissue swelling noted around the left orbit, but otherwise no fractures appreciated on any of these studies done today. Patient's face will be sutured, and she will be discharged home with general recommendations. Departure - Departure Time of Disposition: 16:27 Disposition: Home, Self-Care 01 Condition: Good Clinical Impression: Fall (on)(from) sidewalk curb, initial encounter Facial injury Qualifiers: Encounter type: initial encounter Qualified Code(s): S09.93XA - Unspecified injury of face, initial encounter - Discharge Information *PRESCRIPTION DRUG MONITORING PROGRAM REVIEWED*: No *COPY OF PRESCRIPTION DRUG MONITORING REPORT IN PATIENT MARIAH: No Instructions: Facial or Scalp Contusion, [id number], Sutures, Irma, or Adhesive Wound Closure, [id number] Referrals: Jenny Waddell CAREER AND TRANSITION TEACHER [Primary Care Provider] - Forms: ED Department Discharge Additional Instructions: You have been evaluated in the ED for your laceration. Sutures will need to stay in for 5-7 days (10/24-10/26) You may return to the ED or any clinic for removal. Please keep this area clean and dry, you may cleanse with regular soap and water. No vigorous scrubbing. Please try to use ice packs to your sore areas as much as tolerated, this will help alleviate some pain, and/or swelling of the sites. Watch out for signs of infection like increased redness, swelling, pain at the laceration site, or if you should develop any fevers or chills. You had multiple x-rays and CT scans done today to rule out any bony injuries or any head bleeds, everything was within normal limits, your laboratory evaluation also was within normal limits. Potassium was just mildly low at 3.4 , our lower limit of normal is 3.5. This can easily be supplemented by dietary intake. Recommend you take 500 mg Tylenol every 6 hours as needed for further pain relief. Recommend you do this regularly over the next few days, as you will likely be stiff and sore due to the nature of the fall that you had today. Regarding the bruising and swelling on the eye, do not be surprised if it does not get worse, and that the bruising changes colors over the next few days as well. The bleeding/bruise will likely settle further down into the face, again so do not be surprised if this happens. Please return to ED if your symptoms change or worsen. Sepsis Event Note (ED) - Evaluation Sepsis Screening Result: No Definite Risk - Focused Exam Vital Signs: Vital Signs Temp Pulse Resp BP Pulse Ox 10/20/19 14:54 98.7 F 58 L 18 117/81 98 - My Orders Last 24 Hours: My Active Orders 10/20/19 16:29 Vaccines to be Administered [RC] PER UNIT ROUTINE - Assessment/Plan Last 24 Hours: My Active Orders 10/20/19 16:29 Vaccines to be Administered [RC] PER UNIT ROUTINE
[2019-10-20] MEDS ORDERED: Lidocaine 1% 10 ML MDV INJECT ONE (16:15)
--- NOTE | 2019-10-20 16:15 | CT ---
CT facial bones Technique: Multiple axial sections of the facial bones were obtained from above the frontal sinuses inferiorly through the mandible. Reconstructed coronal and sagittal images were obtained. Comparison: Prior facial bone CT study of this 10/18/16. Findings: Artifact is noted from dental hardware. Fairly prominent degenerative change is noted within the temporomandibular joints which appears fairly stable from previous study. Mastoid sinuses are clear. Minimal mucosal thickening is seen within the ethmoid sinuses. No acute paranasal sinus finding is seen. Right and left globes are symmetric. No retrobulbar are abnormality is seen. No acute facial bone fracture is appreciated. Stable calcification is noted above the left orbit within the soft tissues. Carotid artery calcification is seen within the carotid siphon. Degenerative change is noted within the visualized cervical spine. Soft tissue swelling is noted around the left orbit. Impression: 1. Nonacute findings as noted above. 2. Soft tissue swelling around the left orbit. 3. No acute fracture is appreciated. Diagnostic code #3 Study was dictated in MDT
--- NOTE | 2019-10-20 16:15 | CT ---
Head CT Technique: Multiple axial sections were obtained through the brain. Intravenous contrast was not utilized. Comparison: Prior head CT study of 06/06/18. Findings: Soft tissue swelling is again noted within the left periorbital region. Ventricles along with basal cisterns and sulci over the convexities are mildly prominent. Minimal diminished density noted within the periventricular white matter most likely representing small vessel ischemic demyelination change. No other abnormal parenchymal densities are seen. No evidence of intracranial hemorrhage. No midline shift or mass effect is seen. Bone window settings were reviewed. No acute calvarial finding is seen. Impression: 1. Mild senescent change as noted above. 2. Soft tissue swelling noted within the left periorbital region. 3. No acute intracranial abnormality is appreciated. Diagnostic code #2 Study was dictated in MDT
--- NOTE | 2019-10-20 16:24 | CR ---
Left humerus: 2 views left humerus were obtained. Comparison: No prior humerus studies available. Bony structures are slightly osteopenic. Small cystic areas are noted within the humeral head which are felt to be incidental. Glenohumeral joint is slightly narrowed. Acromioclavicular joint is slightly narrowed. Osteopenia is seen. Impression: 1. Findings as described above. 2. Nothing acute is appreciated. Diagnostic code #2 Study was dictated in MDT
--- NOTE | 2019-10-20 16:25 | CR ---
Left knee: 4 views left knee were obtained. Comparison: No prior left knee exam. Moderate narrowing is seen within the medial joint compartment with medial tibial osteophyte. Small osteophytes off the lateral joint are seen. Lateral joint compartment is maintained in height. Vascular calcification is noted. Minimal osteophyte off the superior patella is seen. No joint effusion is noted. Osteopenia is seen. No acute fracture or other bony abnormality is appreciated. Impression: 1. Degenerative change as noted above. Vascular calcification. 2. Nothing acute is appreciated on left knee exam. Diagnostic code #2 Study was dictated in MDT
--- NOTE | 2019-10-20 16:26 | CR ---
Left shoulder: 3 views left shoulder were obtained. Minimal degenerative change within the glenohumeral and acromioclavicular joint is seen. Small cystic areas within the humeral are seen which are believed to be incidental. No acute fracture, dislocation or other bony abnormality is seen. Impression: 1. Findings as noted above. 2. Nothing acute is appreciated on left shoulder study. Diagnostic code #2 Study was dictated in MDT
--- NOTE | 2019-10-20 16:26 | CR ---
Right knee: 4 views of the right knee were obtained. Comparison: No previous knee exam is available. Soft tissue swelling is noted anteriorly. Vascular calcification is noted. Moderate to severe medial joint space narrowing is noted. Lateral joint space is preserved. Osteopenia is seen. No acute fracture or dislocation is seen. Small spur is noted at the attachment of the quadriceps tendon to the patella. Impression: 1. Degenerative change and vascular calcification. 2. Soft tissue swelling is noted anteriorly. 3. No acute bony abnormality is appreciated. Diagnostic code #2 Study was dictated in MDT
[2019-10-20] MEDS ORDERED: Diphtheria,Pertussis(Acell),Tetanus Vaccine 0.5 ML Syringe IM ONE (16:29)
[2019-10-20 17:32] VITALS: BP 148/75; PULSE 56
== END 2019-10-20 17:10 | disposition home or self-care (01) ==
LOC: JD.ED 14:43
DX: S01.112A Laceration without foreign body of left eyelid and periocular area, initial encounter (principal); M25.512 Pain in left shoulder; Z23 Encounter for immunization; I10 Essential (primary) hypertension; E03.9 Hypothyroidism, unspecified; F41.9 Anxiety disorder, unspecified; K21.9 Gastro-esophageal reflux disease without esophagitis; E78.00 Pure hypercholesterolemia, unspecified; Z88.1 Allergy status to other antibiotic agents; Z88.0 Allergy status to penicillin; Z88.6 Allergy status to analgesic agent; Z79.82 Long term (current) use of aspirin; Z79.899 Other long term (current) drug therapy; W10.1XXA Fall (on)(from) sidewalk curb, initial encounter
CPT/HCPCS: 12011; 36415; 70450; 70486; 73030; 73060; 73564; 80053; 85025; 90471; 90715; 99284; A9270; J2001; 99282

== ENCOUNTER 2022-09-23 14:25 | Emergency (ER) | payer MEDICARE, BC ==
[2022-09-23] MEDS ORDERED: Sodium Chloride 0.9% 10 ML Syringe FLUSH PRN (15:29)
[2022-09-23] MEDS ORDERED: Sodium Chloride 0.9% 500 ML IV ONE (15:29)
[2022-09-23 15:54] LABS: BASOPHILS ABSOLUTE AUTO 0.02 K/mm3 (0.01-0.08); BASOPHILS PERCENT AUTO 0.4 % (0.1-1.2); EOSINOPHILS ABSOLUTE AUTO 0.21 K/mm3 (0.04-0.36); HEMATOCRIT 38.6 % (34.1-44.9); HEMOGLOBIN 13.1 gm/dl (11.2-15.7); LYMPHOCYTES ABSOLUTE AUTO 1.77 K/mm3 (1.18-3.74); LYMPHOCYTES PERCENT AUTO 34.1 % (19.3-51.7); MEAN CORPUSCULAR HGB CONC 33.9 g/dl (32.2-35.5); MEAN CORPUSCULAR VOLUME 91.3 fl (79.4-94.8); MEAN PLATELET VOLUME 9.3 fl (9.4-12.3); MONOCYTES ABSOLUTE AUTO 0.61 K/mm3 (0.24-0.36); MONOCYTES PERCENT AUTO 11.8 % (4.7-12.5); NEUTROPHILS ABSOLUTE AUTO 2.58 K/mm3 (1.56-6.13); NEUTROPHILS PERCENT AUTO 49.7 % (34.0-71.1); PLATELET COUNT,PLT 205 K/mm3 (182-369); RED BLOOD CELL COUNT 4.23 M/mm3 (3.98-5.22); WHITE BLOOD CELL COUNT,WBC 5.19 K/mm3 (3.98-10.04)
[2022-09-23 16:04] LABS: APPEARANCE,URINE CLEAR (Clear); BILIRUBIN,URINE NEGATIVE (Negative); COLOR,URINE YELLOW (Yellow); GLUCOSE,URINE NEGATIVE (Negative); KETONES,URINE NEGATIVE (Negative); LEUKOCYTE ESTERASE,URINE NEGATIVE (Negative); NITRITE,URINE NEGATIVE (Negative); OCCULT BLOOD,URINE TRACE-LYSED (Negative); PROTEIN,URINE NEGATIVE (Negative); UROBILINOGEN,URINE 0.2 (0.2-1.0)
[2022-09-23 16:11] LABS: A/G RATIO 1.1 (1-2); ALANINE AMINOTRANSFERASE,ALT 19 U/L (14-59); ALBUMIN 3.5 g/dl (3.4-5.0); ALKALINE PHOSPHATASE 78 U/L (46-116); ANION GAP 10.6 (5-15); ASPARTATE AMNIOTRANSFERASE,AST 23 U/L (15-37); BILIRUBIN TOTAL 0.3 mg/dL (0.2-1.0); BLOOD UREA NITROGEN,BUN 10 mg/dL (7-18); BUN/CREATININE RATIO 16.7 (14-18); C-REACTIVE PROTEIN <0.2 mg/dL (<1.0); CALCIUM 8.8 mg/dL (8.5-10.1); CARBON DIOXIDE,CO2 29 mEq/L (21-32); CHLORIDE,CL 107 mEq/L (98-107); CREATININE 0.6 mg/dL (0.55-1.02); EST CRCL DRUG DOSING (CG) 72.92 mL/min; ESTIMATED GFR 90 mL/min (>60); GLUCOSE RANDOM 97 mg/dL (70-99); POTASSIUM,K 3.6 mEq/L (3.5-5.1); PROTEIN TOTAL,TP 6.7 g/dl (6.4-8.2); SODIUM,NA 143 mEq/L (136-145)
[2022-09-23] MEDS ORDERED: Iopamidol 612 MG/ML 100 ML Bottle IVPUSH ONE (16:17)
[2022-09-23 16:37] LABS: BACTERIA,URINE FEW /hpf (FEW); MUCUS,URINE FEW /hpf (FEW); WBC,URINE 0-5 /hpf (0-5)
[2022-09-23 17:35] VITALS: BP 149/91; PULSE 74
== END 2022-09-23 17:35 | disposition home or self-care (01) ==
LOC: JD.ED 14:25
DX: K80.20 Calculus of gallbladder without cholecystitis without obstruction (principal); M47.817 Spondylosis without myelopathy or radiculopathy, lumbosacral region; I10 Essential (primary) hypertension; K21.9 Gastro-esophageal reflux disease without esophagitis; E03.9 Hypothyroidism, unspecified; Z88.1 Allergy status to other antibiotic agents; Z88.6 Allergy status to analgesic agent; Z88.0 Allergy status to penicillin; Z79.899 Other long term (current) drug therapy; Z79.82 Long term (current) use of aspirin
CPT/HCPCS: 36415; 74177; 80053; 81001; 85025; 86140; 93005; 99284; J3490; J7030; Q9967

== ENCOUNTER 2023-04-11 08:49 | Emergency (ER) | payer MEDICARE, BC ==
[2023-04-11 09:57] LABS: CORONAVIRUS COVID-19 NAA NEGATIVE (NEGATIVE); INFLUENZA A NAA NEGATIVE (NEGATIVE); RESPIRATORY SYNCYTIAL VIR NAA NEGATIVE (NEGATIVE)
[2023-04-11 10:06] LABS: BASOPHILS PERCENT AUTO 0.5 % (0.0-1.0); EOSINOPHILS ABSOLUTE AUTO 0.2 K/mm3 (0.0-0.4); EOSINOPHILS PERCENT AUTO 2.6 % (0.0-6.0); HEMATOCRIT 36.2 % (37.0-47.0); HEMOGLOBIN 12.4 gm/dl (12.0-16.0); IMMATURE GRAN ABSOLUTE AUTO 0.02 K/mm3 (0.00-0.05); IMMATURE GRAN PERCENT AUTO 0.3 % (0.0-0.4); LYMPHOCYTES ABSOLUTE AUTO 1.5 K/mm3 (1.0-4.8); LYMPHOCYTES PERCENT AUTO 22.3 % (24.0-44.0); MEAN CORPUSCULAR HEMOGLOBIN 31.1 pg (28.0-32.0); MEAN CORPUSCULAR HGB CONC 34.3 g/dl (32.0-36.0); MEAN CORPUSCULAR VOLUME 90.7 fl (83.0-99.0); MEAN PLATELET VOLUME 9.3 fl (9.4-12.3); MONOCYTES ABSOLUTE AUTO 0.7 K/mm3 (0.0-0.8); MONOCYTES PERCENT AUTO 10.9 % (0.0-8.0); NEUTROPHILS ABSOLUTE AUTO 4.2 K/mm3 (1.8-7.7); NEUTROPHILS PERCENT AUTO 63.4 % (41.0-71.0); PLATELET COUNT,PLT 159 K/mm3 (150-400); RED BLOOD CELL COUNT 3.99 M/mm3 (4.10-5.30); WHITE BLOOD CELL COUNT,WBC 6.58 K/mm3 (3.9-11.3)
[2023-04-11 10:51] LABS: ALANINE AMINOTRANSFERASE,ALT 11 U/L (14-59); ALBUMIN 3.4 g/dl (3.4-5.0); ALKALINE PHOSPHATASE 59 U/L (46-116); ASPARTATE AMNIOTRANSFERASE,AST 14 U/L (15-37); BILIRUBIN TOTAL 0.6 mg/dL (0.2-1.0); BLOOD UREA NITROGEN,BUN 8 mg/dL (7-18); BUN/CREATININE RATIO 13.3 (14-18); CALCIUM 8.9 mg/dL (8.5-10.1); CARBON DIOXIDE,CO2 29 mEq/L (21-32); CHLORIDE,CL 104 mEq/L (98-107); CREATININE 0.6 mg/dL (0.55-1.02); EST CRCL DRUG DOSING (CG) 72.92 mL/min; ESTIMATED GFR 90 mL/min (>60); GLUCOSE RANDOM 101 mg/dL (70-99); MAGNESIUM 2.1 mg/dL (1.8-2.4); PROTEIN TOTAL,TP 6.7 g/dl (6.4-8.2); SODIUM,NA 141 mEq/L (136-145)
[2023-04-11 10:55] LABS: C-REACTIVE PROTEIN < 0.2 mg/dL (<1.0)
[2023-04-11 11:36] VITALS: BP 150/72; PULSE 70
== END 2023-04-11 11:25 | disposition home or self-care (01) ==
LOC: JD.ED 08:49
DX: J06.9 Acute upper respiratory infection, unspecified (principal); I10 Essential (primary) hypertension; K21.9 Gastro-esophageal reflux disease without esophagitis; E03.9 Hypothyroidism, unspecified; Z88.0 Allergy status to penicillin; Z88.5 Allergy status to narcotic agent; Z88.8 Allergy status to other drugs, medicaments and biological substances; Z79.82 Long term (current) use of aspirin; Z79.899 Other long term (current) drug therapy; Z90.710 Acquired absence of both cervix and uterus
CPT/HCPCS: 0241U; 36415; 71046; 80053; 83735; 85025; 86140; 99285; 99284